=== PATIENT | female | born 1930 | race Caucasian/White ===

== ENCOUNTER 2016-09-26 08:57 | Inpatient (IN) | payer MEDICARE, OTHER ==
[~2016-09-26] VITALS: Ht 165.1 cm; Wt 63.6 kg
[2016-09-26] MEDS ORDERED: PANTOPRAZOLE 40 MG INJ IV STA ×2 (09:40→10:08)
[2016-09-26 09:51] LABS: ADD SCAN DIFF NO
[2016-09-26 09:53] LABS: ABNORMAL IP MESSAGE 1; BASOPHILS % 0.6 % (0.0-2.0); EOSINOPHILS # 0.1 10^3/ul (0.0-0.5); MEAN CORPUSCULAR VOLUME 103.9 fl (82.0-101.0)
[2016-09-26 09:56] LABS: ALBUMIN 2.6 g/dl (3.3-4.9); EOSINOPHILS % 1.1 % (0.0-7.0); HEMATOCRIT 21.3 % (37.0-47.0); INR 1.23; LYMPHOCYTES # 1.5 10^3/ul (0.8-2.9); MEAN CORPUSCULAR HEMOGLOBIN 33.7 pg (29.0-33.0); MEAN CORPUSCULAR HGB CONC 32.4 g/dl (32.0-37.0); MEAN PLATELET VOLUME 9.8 fl (7.4-10.4); MONOCYTE # 0.5 10^3/ul (0.3-0.9); NEUTROPHIL # 4.4 10^3/ul (1.6-7.5); NEUTROPHILS % 66.8 % (39.0-77.0); PARTIAL THROMBOPLASTIN TIME 26.8 Sec (25.0-35.0); PLATELET COUNT 183 10^3/UL (140-415); PROTIME 15.6 Sec (12.2-14.2); PT RATIO 1.2; RED BLOOD COUNT 2.05 10^6/ul (4.20-5.40); RED CELL DISTRIBUTION WIDTH 15.2 % (11.5-14.5); WHITE BLOOD COUNT 6.6 10^3/ul (4.8-10.8)
[2016-09-26 09:58] LABS: BILIRUBIN,INDIRECT 0.4 mg/dl (0-1.1); BILIRUBIN,TOTAL 0.4 mg/dl (0.2-1.3); CREATININE 1.12 mg/dl (0.44-1.00)
[2016-09-26 09:59] LABS: ALBUMIN/GLOBULIN RATIO 0.86; TOTAL PROTEIN 5.6 g/dl (6.1-8.1)
[2016-09-26 10:00] LABS: CALCIUM 7.7 mg/dl (8.4-10.2)
[2016-09-26 10:02] LABS: HEMOGLOBIN 6.9 g/dl (12.0-16.0)
[2016-09-26] MEDS ORDERED: PANTOPRAZOLE IV 80 MG in SOD CHLORIDE 0.9% 100 ML IV STA (10:08)
[2016-09-26 10:11] LABS: TROPONIN-I 0.047 ng/ml (0.00-0.12)
--- NOTE | 2016-09-26 10:16 | ERA ---
ER Documentation Chief Complaint Date/Time DATE: 09/26/16 TIME: 10:10 Chief Complaint bib ems rectal bleed HPI Patient is an 85-year-old female with history of hypertension, diabetes, and dementia brought in by family due to dark bloody stools at 8:00 this morning. Patient was in her normal state of health prior to this episode, has no history of prior GI bleed. Patient is on Plavix and aspirin for peripheral vascular disease. No anticoagulants. History is limited due to patient's underlying dementia. Patient is acting at baseline per family. No witnessed vomiting. ROS All systems reviewed and are negative except as per history of present illness. Medications Home Meds Reported Medications Clonazepam* (Clonazepam*) 0.5 Mg Tablet, 0.5 MG PO BID Y for ANXIETY, TAB 09/26/16 Alendronate Sodium* (Fosamax*) 70 Mg Tablet, 70 MG PO Q7D, #4 TAB 09/26/16 Glipizide* (Glipizide*) 5 Mg Tablet, 5 MG PO DAILY, TAB 09/26/16 Valsartan-Hydrochlorothiazide (Valsartan-HCTZ) 160-12.5 Mg Tablet, 1 TAB PO DAILY, #30 TAB 09/26/16 Clopidogrel Bisulfate* (Clopidogrel Bisulfate*) 75 Mg Tablet, 75 MG PO DAILY, # 30 TAB 09/26/16 Aspirin* (Aspirin* EC) 81 Mg Tablet.dr, 81 MG PO DAILY, TAB 09/26/16 Ferrous Sulfate* (Ferrous Sulfate*) 325 Mg Tabec, 325 MG PO DAILY, TAB 09/26/16 Rosuvastatin Calcium* (Crestor*) 10 Mg Tablet, 10 MG PO QHS, #30 TAB 09/26/16 Dexlansoprazole (Dexilant) 60 Mg Cap., 60 MG PO DAILY, #30 CAP 09/26/16 Calcium Carbonate ([id number]) 500 Mg Tablet, 500 MG PO BID, TAB 09/26/16 Acetaminophen (Mapap) 500 Mg Capsule, 500 MG PO Q4H Y for PAIN, CAP 09/26/16 Diclofenac Sodium* (Voltaren* Gel) 1% -100 Gm Gel, 2 GM TOP QID, #1 TUB 09/26/16 Azelastine Hcl* (Azelastine Hcl*) 0.05%-6 Ml Opht Drops, 1 DROP BOTH EYES BID, # 1 EA 09/26/16 Pyridoxine Hcl* (Vitamin B-6*) 50 Mg Capsule, 50 MG PO DAILY, CAP 09/26/16 Allergies Allergies: Coded Allergies: Penicillins (Verified Allergy, Intermediate, RASH, 09/26/16) PMhx/Soc Past medical history: Hypertension, diabetes, peripheral vascular disease Past surgical history: Hysterectomy, hip replacement, peripheral arterial stent Social history: No tobacco or alcohol History of Surgery: Yes (HIP REPLACEMENT 2013, VENOUS GRAFT LT LEG) Anesthesia Reaction: No Hx Neurological Disorder: Yes (ALZHEIMER'S DEMENTIA) Hx Respiratory Disorders: No Hx Cardiac Disorders: Yes (ARRHYTHMIA, HTN) Hx Psychiatric Problems: No Hx Miscellaneous Medical Probl: Yes (DM) Hx Alcohol Use: No Hx Substance Use: No Hx Tobacco Use: No Smoking Status: Never smoker FmHx Family History: No coronary disease, No diabetes Physical Exam Vitals Vital Signs Date Time Temp Pulse Resp B/P Pulse Ox O2 Delivery O2 Flow Rate FiO2 09/26/16 09:15 Nasal Cannula 2 09/26/16 09:02 97.2 90 20 144/78 100 Physical Exam Const: Ill-appearing, slightly lethargic, no acute distress Head: Atraumatic Eyes: Conjunctival pallor, no icterus ENT: Normal External Ears, Nose and Mouth. Neck: Full range of motion. No meningismus. Resp: Clear to auscultation bilaterally, mild tachypnea Cardio: Irregularly irregular rhythm, bradycardia, no murmurs Abd: Soft, non tender, non distended. Skin: No petechiae or rashes Rectal: Dark maroon stool on bed Ext: No cyanosis, or edema Neur: Awake and alert, slightly lethargic, not cooperative except with exam. No facial droop Psych: Normal Mood and Affect, at baseline per family Result Diagram: 09/26/1692409/26/16924 Results 24 hrs Laboratory Tests Test 09/26/16 09:25 09/26/16 10:40 Activated Partial Thromboplast Time 26.8Sec Alanine Aminotransferase (ALT/SGPT) 20IU/L Albumin 2.6g/dl Albumin/Globulin Ratio 0.86 Alkaline Phosphatase 76IU/L Anion Gap 14 Aspartate Amino Transf (AST/SGOT) 23IU/L Basophils # 0.010^3/ul Basophils % 0.6% Blood Urea Nitrogen 31mg/dl Calcium Level 7.7mg/dl Carbon Dioxide Level 25mmol/L Chloride Level 106mmol/L Creatinine 1.12mg/dl Direct Bilirubin 0.00mg/dl Eosinophils # 0.110^3/ul Eosinophils % 1.1% Globulin 3.00g/dl Glucose Level 178mg/dl Hematocrit 21.3% Hemoglobin 6.9g/dl INR International Normalized Ratio 1.23 Indirect Bilirubin 0.4mg/dl Lymphocytes # 1.510^3/ul Lymphocytes % 23.0% Mean Corpuscular Hemoglobin 33.7pg Mean Corpuscular Hemoglobin Concent 32.4g/dl Mean Corpuscular Volume 103.9fl Mean Platelet Volume 9.8fl Monocytes # 0.510^3/ul Monocytes % 8.0% Neutrophils # 4.410^3/ul Neutrophils % 66.8% Nucleated Red Blood Cells # 0.010^3/ul Nucleated Red Blood Cells % 0.0/100WBC Platelet Count 12485^3/UL Potassium Level 5.0mmol/L Prothrombin Time 15.6Sec Prothrombin Time Ratio 1.2 Red Blood Count 2.0510^6/ul Red Cell Distribution Width 15.2% Sodium Level 140mmol/L Total Bilirubin 0.4mg/dl Total Protein 5.6g/dl Troponin I 0.047ng/ml White Blood Count 6.610^3/ul Stool Occult Blood POSITIVE Current Medications Medications (Trade) Dose Ordered Sig/Willard Route PRN Reason Start Time Stop Time Status Last Admin Dose Admin Pantoprazole (Protonix Iv) 40 mg ONCE STAT IV 09/26/16 09:40 09/26/16 09:42 DC 09/26/16 10:00 Pantoprazole 40 mg 40 mg ONCE STAT IV 09/26/16 10:08 09/26/16 10:10 DC 09/26/16 10:28 Pantoprazole/ Sodium Chloride (Protonix Iv/NS) 100 ml @ 10 mls/hr ONCE STAT IV 09/26/16 10:08 09/26/16 20:07 09/26/16 10:32 Ondansetron HCl (Zofran Inj) 4 mg ER BRIDGE PRN IV NAUSEA AND/OR VOMITING 09/26/16 11:00 09/26/16 14:26 DC Acetaminophen (Tylenol Tab) 650 mg ER BRIDGE PRN PO MILD PAIN/FEVER 09/26/16 11:00 09/26/16 14:26 DC Lidocaine (Xylocaine (Viscous)) 15 ml ONCE ONCE PO 09/26/16 13:00 09/26/16 13:02 DC 09/26/16 14:27 Lidocaine (Xylocaine (Viscous)) 15 ml ONCE ONCE PO 09/26/16 13:00 09/26/16 13:01 DC Lorazepam 0.5 mg 0.5 mg ONCE ONCE IV 09/26/16 14:00 09/26/16 14:01 DC 09/26/16 14:27 Dextrose/Sodium Chloride (D5-1/2ns) 1,000 ml @ 100 mls/hr Q10H IV 09/26/16 14:17 IV Flush (NS 3 ml) 3 ml PER PROTOCOL IV 09/26/16 14:30 Ondansetron HCl (Zofran Inj) 4 mg Q6H PRN IV NAUSEA AND/OR VOMITING 09/26/16 14:30 Morphine Sulfate (morphine) 2 mg Q4H PRN IV SEVERE PAIN LEVEL 7-10 09/26/16 14:30 Pantoprazole (Protonix Iv) 40 mg BID@06,18 IV 09/26/16 18:00 Hydralazine HCl (Apresoline) 10 mg Q4H PRN IV SBP>170 09/26/16 14:30 Insulin Aspart (Novolog Insulin Pen) NOVOLOG *MILD* ALGORI... Q4 SC 09/26/16 17:00 Miscellaneous Information (* Miscellaneous Pharmacy Order) HYPOGLYCEMIA PROTOCOL w... ONCE ONCE XX 09/26/16 15:00 09/26/16 15:01 DC Miscellaneous Information (* Miscellaneous Pharmacy Order) Discontinue Glyburide, Glipizide,... ONCE ONCE XX 09/26/16 15:00 09/26/16 15:01 DC Miscellaneous Information (* Miscellaneous Pharmacy Order) Discontinue all previ... ONCE ONCE XX 09/26/16 15:00 09/26/16 15:01 DC Miscellaneous Information 1 ea NOTE XX 09/26/16 15:00 Glucose (Glutose) 15 gm Q15M PRN PO DECREASED GLUCOSE 09/26/16 15:00 Glucose (Glutose) 22.5 gm Q15M PRN PO DECREASED GLUCOSE 09/26/16 15:00 Dextrose (D50w Syringe) 25 ml Q15M PRN IV DECREASED GLUCOSE 09/26/16 15:00 Dextrose (D50w Syringe) 50 ml Q15M PRN IV DECREASED GLUCOSE 09/26/16 15:00 Glucagon (Glucagen) 1 mg Q15M PRN IM DECREASED GLUCOSE 09/26/16 15:00 Glucose (Glutose) 15 gm Q15M PRN BUCCAL DECREASED GLUCOSE 09/26/16 15:00 Procedures/MDM EKG: Time 950, rate 51, atrial fibrillation, bradycardia, left axis deviation, nonspecific ST-T wave changes. MDM: 85-year-old female on aspirin and Plavix presents with acute maroon stool this morning. 2 additional episodes during transport to ER and at ER. No hematemesis observed or reported. Patient started on Protonix drip with bolus, found to have hemoglobin of 6.9 with no hypotension. Patient given 2 units of packed red blood cells and discussed with admitting physician possibility of giving platelets due to antiplatelet agents, and he says he will discuss with consulting GI physician. Discussed with Dr. Tesfaye, school leader, who requests NG tube placement to help distinguish between upper versus lower GI bleed. Multiple attempts and Ativan for sedation required in order to place NG tube. Pending x-ray for confirmation, but no blood or coffee ground material observed on aspiration. Will maintain NG tube for bowel prep for planned colonoscopy. Patient remains hemodynamically stable. Critical Care Time: 34 minutes Treatments/Evaluations: Close monitoring and treatment of unstable vital signs, cardiorespiratory, and neurologic status, while maintaining tight balance of fluid, respiratory, and cardiac interventions. This time includes discussing the case with the patient and the patient's family. This time does not include all procedures stated elsewhere in this record. This time also includes reviewing old records, labs and radiological studies. This time includes examining and re-examining the patient. Additionally, this time also includes arranging care with admitting and consulting physicians. Departure Diagnosis: Primary Impression: Acute gastrointestinal hemorrhage Additional Impression: Anemia Condition: Nilson JAZMÍNGEORGIANA Sep 26, 2016 10:16
[2016-09-26] MEDS ORDERED: PYRI50CA PO (10:51)
[2016-09-26] MEDS ORDERED: AZEL6DRO2 BOTH EYES (10:52)
[2016-09-26] MEDS ORDERED: DICL100G37 TOP (10:52)
[2016-09-26] MEDS ORDERED: ACET500C3 PO (10:54)
[2016-09-26] MEDS ORDERED: DEXL60CA2 PO (10:56)
[2016-09-26] MEDS ORDERED: CALC500T91 PO (10:56)
[2016-09-26] MEDS ORDERED: ASPI-664 PO (10:57)
[2016-09-26] MEDS ORDERED: CRES10 PO (10:57)
[2016-09-26] MEDS ORDERED: FER325 PO (10:57)
[2016-09-26] MEDS ORDERED: VALS1TAB76 PO (10:58)
[2016-09-26] MEDS ORDERED: CLOP75TA4 PO (10:58)
[2016-09-26] MEDS ORDERED: GLIP5TAB13 PO (10:59)
[2016-09-26] MEDS ORDERED: ONDANSETRON 4 MG INJ IV PRN ×2 (11:00→14:30)
[2016-09-26] MEDS ORDERED: ACETAMINOPHEN 325 MG TAB PO PRN (11:00)
[2016-09-26] MEDS ORDERED: ALEN70TA30 PO (11:01)
[2016-09-26] MEDS ORDERED: CLON0.5T4 PO (11:02)
--- NOTE | 2016-09-26 11:46 | CONS ---
Date/Time of Note Date/Time of Note DATE: 09/26/16 TIME: 11:46 Consultation Date/Type/Reason Admit Date/Time Social History Smoking Status: Never smoker Exam/Review of Systems Vital Signs Vitals Vital Signs Date Time Temp Pulse Resp B/P Pulse Ox O2 Delivery O2 Flow Rate FiO2 09/26/16 09:15 Nasal Cannula 2 09/26/16 09:02 97.2 90 20 144/78 100 Results Result Diagram: 09/26/1692409/26/1625 Results 24 hrs Laboratory Tests Test 09/26/16 09:25 Activated Partial Thromboplast Time 26.8 Alanine Aminotransferase (ALT/SGPT) 20 Albumin 2.6 L Albumin/Globulin Ratio 0.86 Alkaline Phosphatase 76 Anion Gap 14 Aspartate Amino Transf (AST/SGOT) 23 Basophils # 0.0 Basophils % 0.6 Blood Urea Nitrogen 31 H Calcium Level 7.7 L Carbon Dioxide Level 25 Chloride Level 106 Creatinine 1.12 H Direct Bilirubin 0.00 Eosinophils # 0.1 Eosinophils % 1.1 Globulin 3.00 Glucose Level 178 Hematocrit 21.3 L Hemoglobin 6.9 *L INR International Normalized Ratio 1.23 Indirect Bilirubin 0.4 Lymphocytes # 1.5 Lymphocytes % 23.0 Mean Corpuscular Hemoglobin 33.7 H Mean Corpuscular Hemoglobin Concent 32.4 Mean Corpuscular Volume 103.9 H Mean Platelet Volume 9.8 Monocytes # 0.5 Monocytes % 8.0 Neutrophils # 4.4 Neutrophils % 66.8 Nucleated Red Blood Cells # 0.0 Nucleated Red Blood Cells % 0.0 Platelet Count 183 Potassium Level 5.0 Prothrombin Time 15.6 H Prothrombin Time Ratio 1.2 Red Blood Count 2.05 L Red Cell Distribution Width 15.2 H Sodium Level 140 Total Bilirubin 0.4 Total Protein 5.6 L Troponin I 0.047 White Blood Count 6.6 VICTORINA JO MD Sep 26, 2016 11:46
[2016-09-26] MEDS ORDERED: LIDOCAINE 2% VISC 15 ML CUP PO ONE ×2 (13:00)
[2016-09-26] MEDS ORDERED: LORAZEPAM 2 MG INJ IV ONE ×2 (14:00→20:00)
[2016-09-26] MEDS ORDERED: hydrALAzine 20 MG INJ IV PRN (14:30)
[2016-09-26] MEDS ORDERED: NACL 0.9% 3 ML SYG IV SCH (14:30)
[2016-09-26] MEDS ORDERED: GLUCOSE GEL 15 GRAM TUBE PO PRN ×2 (15:00)
[2016-09-26] MEDS ORDERED: DEXTROSE 50% 50 ML SYRINGE IV PRN ×2 (15:00)
[2016-09-26] MEDS ORDERED: GLUCAGON 1 MG INJ IM PRN (15:00)
[2016-09-26] MEDS ORDERED: GLUCOSE GEL 15 GRAM TUBE BUCCAL PRN (15:00)
[2016-09-26 16:00] VITALS: BP 144/82; PULSE 63; RESP 20
--- NOTE | 2016-09-26 16:01 | RADRPT ---
PROCEDURE: XR Chest. CLINICAL INDICATION: Nasogastric tube placement TECHNIQUE: Chest AP portable. COMPARISON: No comparison available FINDINGS: The nasogastric tube is in the stomach. The mediastinal structures are unremarkable. There is calcification of the thoracic aorta (consiste nt with atherosclerosis). There is mild cardiomegaly. There is pulmonary venous hypertension. The re are RLL and LLL patchy consolidations (edema/pneumonia). There is a right pleural effusion. The re are senescent changes of the axial skeleton. IMPRESSION: Mild cardiomegaly. Pulmonary venous hypertension. RLL and LLL patchy consolidations (edema/pneumonia). Right pleural effusion. RPTAT: HGDB .Roger Prieto MD, Date Time Electronically viewed and signed by .Roger Prieto MD, on 09/26/2016 16:00 .B/
[2016-09-26 16:42] VITALS: PULSE 57
[2016-09-26] MEDS: INSULIN ASPART [NOVOLOG] 3 ML PEN SC SCH ×2 (17:00→21:00)
[2016-09-26 17:30] VITALS: Ht 165.1 cm; Wt 63.6 kg
[2016-09-26] MEDS ORDERED: FUROSEMIDE 20 MG INJ IV ONE (17:30)
--- NOTE | 2016-09-26 17:38 | HP ---
DATE OF ADMISSION: 09/26/2016 CHIEF COMPLAINT: Gastrointestinal bleed. HISTORY OF PRESENT ILLNESS: The patient is an 85-year-old female with history of severe dementia, h ypertension and diabetes. The patient was brought in by her daughter for dark stools. I saw her th is morning. The patient then had bright red blood per rectum. The patient has no prior history of GI bleed. She did not endorse any abdominal pain. She is on Plavix and aspirin for her peripheral vascular disease. She is not on any anticoagulants. History is provided by the patient's daughter as patient is severely demented. The patient's mentation is at baseline per the daughter. The jenny ent had no witnessed vomiting, no witnessed upper GI bleed. NG tube was attempted to be placed in t ER, but patient became agitated and refused it. PAST MEDICAL HISTORY: As per HPI. PAST SURGICAL HISTORY: Hip replacements, venous graft in left leg. HOME MEDICATIONS: 1. Tylenol. 2. Fosamax. 3. Aspirin. 4. Calcium. 5. Clonazepam. 6. Plavix. 7. Ferrous sulfate. 8. Glipizide. 9. Vitamin B6. 8. Crestor. 9. Dexilant. 10. Losartan. 11. Hydrochlorothiazide. ALLERGIES: PENICILLIN. FAMILY HISTORY: Noncontributory. SOCIAL HISTORY: No reports of alcohol, tobacco, or drug abuse. REVIEW OF SYSTEMS: A 12-point review of systems cannot be obtained secondary to patient's poor ment ation, which is her baseline. PHYSICAL EXAMINATION: VITAL SIGNS: Temperature is 97.2, pulse 90, respiration is 20, blood pressure 144/78, saturation 10 0% on 2 liters. GENERAL: No acute distress, nonverbal. HEENT: Normocephalic, atraumatic. LUNGS: Clear to auscultation. CARDIOVASCULAR: Regular rate and rhythm. ABDOMEN: Nondistended, nontender, soft. EXTREMITIES: No clubbing, cyanosis, or edema. LABORATORIES: White count 6.6, hemoglobin 6.9, platelets are 183. Chemistry within normal limits e xcept for creatinine 1.12, BUN is 31. Troponin is 5.6, albumin is 2.6. INR is 1.23. Stool occult is positive. ASSESSMENT AND PLAN: 1. Severe anemia secondary to a gastrointestinal bleed. The patient has already been evaluated by Dr. Tesfaye of GI. The patient will likely have an EGD and colonoscopy tomorrow. An NG-tube placeme nt was attempted in the ER, but the patient became agitated and refused. Hence, it is unclear exact ly whether the patient is having an upper GI bleed versus lower GI bleed. The patient will be on Pr otonix. Will monitor vitals and H and H, follow with GI recommendations. We will also check a B12 and folate as the patient has macrocytosis. 2. History of dementia. The patient's mentation is at baseline according to the daughter. 3. History of peripheral vascular disease. Will hold home aspirin and Plavix secondary to gastroin testinal bleed. 4. History of hypertension. Hold BP medications secondary to gastrointestinal bleed and possible e nsuing hypotension. 5. Mbk-jnjrsxj-eicatdkqr diabetes. We will put the patient on a NovoLog sliding scale. 6. Dyslipidemia. Hold Crestor at this time. 7. Prophylaxis: SCDs. Dictated By: BALA ARGUELLES MD BS/GRIS Conf#: [id number] DID#: [id number]
[2016-09-26 17:54] VITALS: BP 166/71; RESP 18
[2016-09-26] MEDS ORDERED: SOD CHLORIDE 0.9% 250 ML IV* ONE (17:56)
[2016-09-26] MEDS: PANTOPRAZOLE 40 MG INJ IV SCH (18:00)
[2016-09-26] MEDS ORDERED: PEG/ELECTROLYTES 4L BTL NGT ONE (19:30)
[2016-09-26] MEDS: morphine 2 MG INJ IV PRN ×2 (19:43→21:35)
[2016-09-26 20:18] VITALS: PULSE 57
[2016-09-26 20:22] VITALS: BP 154/78; RESP 20
[2016-09-26 20:41] LABS: HEMOGLOBIN 7.6 g/dl (12.0-16.0)
[2016-09-26] MEDS: DEXTROSE 5%-0.45% NACL 1,000 ML IV SCH (23:36)
[2016-09-26 23:42] VITALS: BP 126/38; RESP 18
[2016-09-27] VITALS (17 sets, daily range): BP systolic 123–163; BP diastolic 57–100; PULSE 30–97; RESP 14–21
[2016-09-27 01:09] LABS: HEMATOCRIT 23.3 % (37.0-47.0); HEMOGLOBIN 7.7 g/dl (12.0-16.0)
[2016-09-27] MEDS: INSULIN ASPART [NOVOLOG] 3 ML PEN SC SCH ×6 (01:41→21:06)
[2016-09-27] MEDS: PANTOPRAZOLE 40 MG INJ IV SCH ×2 (05:22→21:04)
[2016-09-27] MEDS ORDERED: ATROPINE 1 MG INJ IV ONE (06:30)
[2016-09-27 07:25] LABS: ADD SCAN DIFF NO
[2016-09-27 07:44] LABS: ALBUMIN 2.5 g/dl (3.3-4.9)
[2016-09-27 07:45] LABS: POTASSIUM 4.9 mmol/L (3.5-5.1)
[2016-09-27 07:47] LABS: ALBUMIN/GLOBULIN RATIO 0.89; BILIRUBIN,INDIRECT 0.4 mg/dl (0-1.1); BILIRUBIN,TOTAL 0.4 mg/dl (0.2-1.3); CREATININE 1.22 mg/dl (0.44-1.00); TOTAL PROTEIN 5.3 g/dl (6.1-8.1)
[2016-09-27 07:48] LABS: MAGNESIUM 2.3 mg/dl (1.7-2.5); PHOSPHORUS 3.6 mg/dl (2.5-4.9)
[2016-09-27 08:15] LABS: BASOPHIL # 0.1 10^3/ul (0.0-0.1); BASOPHILS % 0.7 % (0.0-2.0); EOSINOPHILS # 0.1 10^3/ul (0.0-0.5); EOSINOPHILS % 1.1 % (0.0-7.0); HEMATOCRIT 22.3 % (37.0-47.0); HEMOGLOBIN 7.3 g/dl (12.0-16.0); LYMPHOCYTES # 1.5 10^3/ul (0.8-2.9); LYMPHOCYTES % 19.5 % (15.0-51.0); MEAN CORPUSCULAR HEMOGLOBIN 32.2 pg (29.0-33.0); MEAN CORPUSCULAR HGB CONC 32.7 g/dl (32.0-37.0); MEAN CORPUSCULAR VOLUME 98.2 fl (82.0-101.0); MEAN PLATELET VOLUME 10.3 fl (7.4-10.4); MONOCYTE # 0.7 10^3/ul (0.3-0.9); MONOCYTES % 9.6 % (0.0-11.0); NEUTROPHIL # 5.1 10^3/ul (1.6-7.5); NEUTROPHILS % 68.6 % (39.0-77.0); PLATELET COUNT 136 10^3/UL (140-415); RED BLOOD COUNT 2.27 10^6/ul (4.20-5.40); RED CELL DISTRIBUTION WIDTH 19.1 % (11.5-14.5); WHITE BLOOD COUNT 7.5 10^3/ul (4.8-10.8)
[2016-09-27] MEDS: DEXTROSE 5%-0.45% NACL 1,000 ML IV SCH ×3 (10:17→21:03)
[2016-09-27] MEDS ORDERED: LORAZEPAM 2 MG INJ IV SCH (11:45)
--- NOTE | 2016-09-27 14:54 | RADRPT ---
PROCEDURE: XR Abdomen. CLINICAL INDICATION: NG tube placement assessment. TECHNIQUE: AP abdomen x-ray. COMPARISON: Chest x-ray 09/26/2016. FINDINGS: An NG tube is positioned its tip distal to the GE junction. There is a subpulmonic right pleural ef fusion. There are degenerative osteophytes in the thoracic and lumbar spine. There is an old inter donte fixated intertrochanteric fracture of the proximal right femur. There are degenerative change s in both hips. There is a reflex ileus. IMPRESSION: 1. The nasogastric tube is well positioned distal to the GE junction with its distal tip about 8 cm away from the GE junction. 2. Old internally fixated intertrochanteric fracture of the proximal right femur. 3. Osteoarthritis of the lower thoracic, lumbar spine and both hips. RPTAT:AAJJ Physician Clem Date Time Electronically viewed and signed by Physician Clem on 09/27/2016 14:54 SAMIR/
[2016-09-27] MEDS ORDERED: LIDOCAINE 1% (MDV) 20 ML INJ SC ONE (16:00)
[2016-09-27] MEDS ORDERED: METOCLOPRAMIDE 10 MG INJ IV PRN (18:00)
[2016-09-27 19:00] LABS: HEMATOCRIT 28.4 % (37.0-47.0); HEMOGLOBIN 9.6 g/dl (12.0-16.0)
--- NOTE | 2016-09-27 22:09 | PN ---
DATE: 09/27/2016 SUBJECTIVE: The patient is stable at this point. She is still somewhat confused. Has poor IV acce ss. Currently receiving second unit of packed red blood cells. PHYSICAL EXAMINATION: VITAL SIGNS: Temperature 98, pulse is 60, blood pressure 123/79, O2 saturation 96% on 2 L nasal can nula. NECK: Supple. No JVD or lymphadenopathy. CARDIAC: S1, S2. No added sounds or murmurs. CHEST: Diminished air entry bilaterally. ABDOMEN: Soft, nontender. No guarding, no rebound. EXTREMITIES: No cyanosis, clubbing. 1+ edema. NEUROLOGIC: Generalized weakness. LABORATORY DATA: White count 7.5, hemoglobin 7.3. BUN 43, creatinine 1.2. INR 1.23. IMAGING: Chest x-ray on admission had shown mild vascular congestion, right pleural effusion. IMPRESSION AND PLAN: 1. Significant anemia suggestive of gastrointestinal bleed. 2. Mild congestive cardiac failure. 3. Possible dementia. 4. Incomplete data. PLAN: 1. Continue transfusion of packed red blood cells. Keep hemoglobin greater than 8. 2. GI evaluation and possible endoscopy and/or colonoscopy. 3. Preop clearance by cardiology for possible endoscopy and colonoscopy given patient's advanced ag e and relative bradycardia. Dictated By: CLAUDETTE LAL MD SV/NTS Conf#: [id number] DID#: [id number] CC: BALA ARGUELLES MD;*EndCC*
[2016-09-28] VITALS (18 sets, daily range): BP systolic 102–198; BP diastolic 38–105; PULSE 40–73; RESP 10–21
[2016-09-28] MEDS: INSULIN ASPART [NOVOLOG] 3 ML PEN SC SCH ×6 (01:00→21:27)
[2016-09-28 01:02] LABS: HEMATOCRIT 26.1 % (37.0-47.0); HEMOGLOBIN 8.7 g/dl (12.0-16.0)
[2016-09-28] MEDS: DEXTROSE 5%-0.45% NACL 1,000 ML IV SCH ×3 (01:47→17:57)
[2016-09-28] MEDS: PANTOPRAZOLE 40 MG INJ IV SCH ×2 (04:49→17:59)
--- NOTE | 2016-09-28 07:58 | CONS ---
DATE OF ADMISSION: 09/26/2016 DATE OF CONSULTATION: 09/27/2016 CARDIOLOGY CONSULTATION REFERRING PHYSICIAN: Dr. Leiva, Dr. Pappas. REASON FOR CONSULTATION: Atrial fibrillation, bradycardia, cardiovascular preop evaluation. CHIEF COMPLAINT: GI bleed. HISTORY OF PRESENT ILLNESS: Thank you for this referral. History obtained from the patient's daugh ter, most recent from review of the chart, attending physician and staff. The patient . 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 The patient was noted to have dark stool for a few days. She was noted t o be severely anemic. The patient is on aspirin and probably on Plavix too for history of atrial fi brillation, apparently. No previous history of bleeding. The patient has apparently been bradycardi c before but has been recommended by her primary doctor pacemaker. Per the patient's daughter, has a refused to have it done. In the monitor, she was noted to be atrial fibrillation with slow v entricular response. Heart rate has been as low as 30. Blood pressure has remained stable. PAST MEDICAL HISTORY: History of hypertension, diabetes, dementia, history of CVA in the past, hist ory of atrial fibrillation. SURGICAL HISTORY: History of hip replacement, venous graft in the leg. MEDICATIONS: As per medical reconciliation, personally reviewed. ALLERGIES: PENICILLIN. FAMILY HISTORY: No reported coronary artery disease. SOCIAL HISTORY: Does not smoke or drink. REVIEW OF SYSTEMS: As above-mentioned, patient is mostly bed bound. The family denied all other exc ept for above-mentioned. PHYSICAL EXAMINATION: VITAL SIGNS: Temperature 98.4, heart rate of 50, blood pressure 123/79, respiration rate of 16, sat urating 98%. HEENT: Normocephalic, atraumatic. Pupils are equal. Status post NG tube in place. CARDIOVASCULAR: Irregularly irregular, systolic murmur. PULMONARY: No wheezes heard anteriorly. GASTROINTESTINAL: Soft, nontender. EXTREMITIES: Trivial edema. NEUROLOGIC: Awake, oriented to person only. PSYCHIATRIC: Appears to be calm at this point. LABORATORY: OB stool is positive. Sodium 143, potassium 4.9, BUN of 43, creatinine 0.42, glucose 1 27. Albumin is 2.5. WBC of 7.5, hemoglobin on admission was 6.9. Most recent one after transfusio n is 9.6, platelet 136. INR 1.23. Chest x-ray showed pulmonary venous hypertension, mild cardiomeg ghada, right lower lobe and left lower lobe patchy consolidation, edema or pneumonia, right pleural ef fusion. EKG showed atrial fibrillation with slow ventricular response. There was no conduction del ay, nonspecific ST abnormalities. Echocardiogram is still pending. ASSESSMENT AND PLAN: 1. Cardiovascular preop evaluation. 2. Atrial fibrillation with slow ventricular response. 3. Hypertension. 4. Diabetes. 5. History of cerebrovascular accident. 6. History of severe dementia. 7. Severe anemia. 8. Gastrointestinal bleed. RECOMMENDATIONS: The patient has been transfused. She is not on any medication to cause bradycardi a as far as we can say, but she is severely bradycardic. Pacemaker was recommended to the family; tiffany edwards, daughter said that she does not want to have to have any procedure done including the pacema ker. We will avoid any AV alva blocking agent. I will check the thyroid function test. Blood pres sure currently has remained stable. No further cardiac workup would be indicated prior to the surge ry except an echocardiogram which has been ordered already. However, the patient is at moderate ris k of cardiovascular event, especially bradycardia. This was explained to the daughter, but again sh pepe does not want her to have any pacemaker placed at the moment. All anticoagulation is on hold. Wi ll continue to monitor on telemetry for the time being. Dictated By: MJ TATE MD AV/GRIS Conf#: [id number] DID#: [id number] CC: BALA PAPPAS MD; CLAUDETTE LEIVA MD;*End*
[2016-09-28] MEDS ORDERED: INFLUENZA VIRUS VACCINE 0.5 ML (DISPENSING) IM* ONE (09:00)
--- NOTE | 2016-09-28 09:06 | RADRPT ---
PROCEDURE: XR Chest 1 View. CLINICAL INDICATION: Shortness of breath TECHNIQUE: AP view of the chest was obtained. COMPARISON: September 26, 2016 FINDINGS: Heart borders are obscured by the opacities. Calcified atherosclerosis is noted in the aorta. Nasog astric tube has its distal end in the expected location of the stomach. Proximal side hole is noted at the level of the gastroesophageal junction. Patchy infiltrates throughout the right lung combin ed with moderate to large pleural effusion are similar to prior exam, given differences in technique . The left lung is hyperexpanded. Interstitial prominence throughout the left lung is unchanged. Scattered atelectasis is noted throughout the left lung. The osseous structures are osteopenic, but appear grossly intact. Degenerative changes are identified in the shoulders. IMPRESSION: Calcified atherosclerosis in the aorta. Stable patchy infiltrates throughout the right lung combined with moderate to large pleural effusion . Stable hyperexpansion of the left lung with diffuse interstitial prominence in the left lung. Scattered subsegmental atelectasis throughout the left lung. Nasogastric tube with its proximal side hole at the level of the gastroesophageal junction. Advance ment by approximately 6 cm is recommended. RPTAT: AA .Eddie Max MD, Date Time Electronically viewed and signed by .Eddie Max MD, on 09/28/2016 09:05 .P/
[2016-09-28] MEDS ORDERED: ATROPINE 1 MG/10 ML SYRINGE ONE (10:58)
[2016-09-28] MEDS ORDERED: ATROPINE 0.4 MG INJ IV ONE (11:00)
[2016-09-28] MEDS: ATROPINE 1 MG/10 ML SYRINGE IV PRN ×2 (11:04→11:05)
[2016-09-28 11:19] LABS: HEMOGLOBIN 8.8 g/dl (12.0-16.0)
[2016-09-28] MEDS ORDERED: POLYMYXIN/BACITRACIN 1L IRRIG IRR SCH (12:30)
[2016-09-28 13:41] LABS: POTASSIUM 3.8 mmol/L (3.5-5.1)
[2016-09-28 13:44] LABS: CREATININE 1.08 mg/dl (0.44-1.00)
[2016-09-28 13:45] LABS: CALCIUM 8.1 mg/dl (8.4-10.2); MAGNESIUM 2.1 mg/dl (1.7-2.5); PHOSPHORUS 3.3 mg/dl (2.5-4.9)
[2016-09-28] MEDS ORDERED: PROPOFOL 100 ML ONE (13:47)
[2016-09-28] MEDS ORDERED: LIDOCAINE 2% (SDV) 5 ML INJ ONE (13:47)
[2016-09-28] MEDS ORDERED: FENTAnyl 50 MCG/ML VIAL ONE (13:48)
[2016-09-28] MEDS ORDERED: SUCCINYLCHOLINE CHLORIDE 100 MG/5 ML SYG IV ONE (13:48)
[2016-09-28] MEDS ORDERED: EPHEDrine SULFATE 50 MG/5 ML SYG ONE (13:48)
[2016-09-28] MEDS ORDERED: ONDANSETRON 4 MG INJ ONE (13:49)
[2016-09-28] MEDS ORDERED: PHENYLephrine (100 MCG/ML) 5ML SYG ONE (13:49)
[2016-09-28 13:50] LABS: CHOL/HDL RATIO 3.7 RATIO
[2016-09-28 14:22] LABS: THYROID STIMULATING HORMONE 4.1 MIU/L (0.465-4.680)
--- NOTE | 2016-09-28 15:04 | RADRPT ---
Echocardiogram Report Patient Name: ADALID SILVA Gender: Female Date: 1930 Study Date: 28-Sep-2016 [id number] Architect: Malik Neff RDCS Location: 528 Ref. Physician: MJ BRYANT Quality: Good Procedures: Transthoracic echocardiogram with complete 2D, M-Mode, and doppler examination. Indications: Atrial Fibrillation. 2D/M Mode Doppler Measurement Value Normal Ranges Measurement Value Normal Ranges LVIDd 2D 4.3 3.5 - 5.6 cm AV Peak Tello 1.8 m/sec LVIDs 2D 2.6 2.1 - 4.1 cm AV Peak PG 12.9 mmHg LVPWd 2D 0.9 0.6 - 1.1 cm AI Peak PG 49.4 mmHg IVSd 2D 1.0 0.6 - 1.1 cm AI Peak Tello 3.5 m/sec AoR Diam 2D 2.6 2.0 - 3.7 cm AI PHT 466.8 msec EDV 2D 84.5 cm3 LVOT Peak Tello 0.9 m/sec ESV 2D 16.9 cm3 LVOT Peak PG 3.5 mmHg LA Dimen 2D 4.2 2.3 - 4.0 cm TR Peak Tello 4.8 m/sec TR Peak PG 92.0 mmHg RVSP 95.0 mmHg Findings Left Ventricle: Normal left ventricular systolic function. Normal left ventricular cavity size. Normal left ventricular wall thickness. Ejection fraction is visually estimated at 60 %. Right Ventricle: Normal right ventricular size. Normal right ventricular systolic function. Left Atrium: There is mild enlargement of left atrium. Right Atrium: There is mild enlargement of right atrium. Mitral Valve: Mitral valve leaflets appear moderately thickened. Moderate mitral annular calcification. Severe mitral valve regurgitation. Aortic Valve: Aortic cusps appear mildly calcified. Mild aortic valve regurgitation. Tricuspid Valve: Estimated peak PA systolic pressure 95 mmHg. There is moderate tricuspid regurgitation. Pulmonic Valve: There is trace to mild pulmonic regurgitation. Pericardium: Normal pericardium with no significant pericardial effusion. Left pleural effusion seen. Aorta: Normal aortic root. IVC: Normal size and normal respiratory collapse consistent with normal right atrial pressure. Conclusions 1.Normal left ventricular systolic function. Normal left ventricular cavity size. Normal left ventricular wall thickness. Ejection fraction is visually estimated at 60 %. 2.There is mild enlargement of left atrium. 3.There is mild enlargement of right atrium. 4.Mitral valve leaflets appear moderately thickened. Moderate mitral annular calcification. Severe mitral valve regurgitation. 5.Aortic cusps appear mildly calcified. Mild aortic valve regurgitation. 6.Estimated peak PA systolic pressure 95 mmHg. There is moderate tricuspid regurgitation. 7.Normal size and normal respiratory collapse consistent with normal right atrial pressure. Electronically Signed By: Mj Bryant 28-Sep-2016 15:03:35 -0700 Patient Name: ADALID SILVA Study Date: 28-Sep-2016 [id number]
[2016-09-28] MEDS ORDERED: VANCOMYCIN 1 GM (PMX) 250 ML IVPB ONE (15:30)
[2016-09-28] MEDS ORDERED: SOD CHLORIDE 0.9% 500 ML IV ONE (15:30)
[2016-09-28] MEDS ORDERED: LIDOCAINE 1%/EPI 30 ML INJ ONE (15:49)
[2016-09-28] MEDS ORDERED: IODIXANOL LOCM 50 ML BTL ONE (15:50)
--- NOTE | 2016-09-28 15:53 | PN ---
Date/Time of Note Date/Time of Note DATE: 09/28/16 TIME: 15:37 Assessment/Plan VTE Prophylaxis VTE Prophylaxis Intervention: SCD's Lines/Catheters IV C[facility]ter Type (from [facility]): Peripheral IV Urinary Cath still in place: No Assessment/Plan Assessment/Plan 1. Severe anemia secondary to a gastrointestinal bleed. 2. Atrial fibrillation with slow ventricular response. 3. Diastolic CHF with Moderate to large R sided pleural effusion with preserved EF 4. Severe Mitral valve regurgitation 5. Chronic dementia with patient being ambulant and communicative at baseline. 6. Chronic peripheral vascular disease. 7. Hypertension 8. Gtf-ddwvscm-rdygbyzwc diabetes. We will put the patient on a NovoLog sliding scale. 9. Dyslipidemia 10. DNR per daughter 11. ARF r/o CKD PLAN: * Strongly recommend Pacemaker placement prior to endoscopy * Commence gentle diuresis * Continue to hold anticoagulation for now * Endoscopy planned for 5pm today * No opiods or ativan d/t severe lethargy * f/u pulm recs regarding pleural effusion * Continue supportive care * Spokw with daughter in detail PROPHYLAXIS: PPI / Scds Disclaimer: Inadvertent spelling and grammatical errors are likely due to EHR/ dictation software use and do not reflect on the quality of delivered patient care. Also, please note that the electronic time recorded on this node does not necessarily reflect the actual time of the visit. Subjective 24 Hr Interval Summary Free Text/Dictation * very lethargic and sleepy * no ativan since yesterday afternoon per report * Discussed code status with daughter , patient is DNR Exam/Review of Systems Vital Signs Vitals Vital Signs Date Time Temp Pulse Resp B/P Pulse Ox O2 Delivery O2 Flow Rate FiO2 09/28/16 12:00 60 09/28/16 09:59 97.9 18 157/64 100 09/28/16 08:50 2.0 09/28/16 08:45 Nasal Cannula Intake and Output 09/27/16 09/27/16 09/28/16 15:00 23:00 07:00 Intake Total 0 ml 1500 ml Output Total 9 ml Balance 0 ml 1491 ml Exam Constitutional: other (elderly, mildly pursed breathing, but will arouse to stimulation and answer questions), No alert Head: normocephalic Eyes: PERRL Respiratory: diminished breath sounds, other (? Murmur) Cardiovascular: irregular rhythm, No regular rate and rhythm (bradycardic to the 40s) Extremities: edema Neurological: lethargic Results Result Diagram: 09/28/16 1004 09/28/16 1004 Results 24 hrs Laboratory Tests Test 09/27/16 17:29 09/27/16 18:40 09/27/16 21:00 09/28/16 00:55 Bedside Glucose 159 186 Hematocrit 28.4 #L 26.1 L Hemoglobin 9.6 #L 8.7 L Test 09/28/16 01:46 09/28/16 04:48 09/28/16 08:20 09/28/16 10:04 Bedside Glucose 139 171 196 Anion Gap 14 Blood Urea Nitrogen 31 #H Calcium Level 8.1 L Carbon Dioxide Level 22 Chloride Level 108 Cholesterol Level 138 Cholesterol/HDL Ratio 3.7 Creatinine 1.08 H Digoxin Level < 0.4 L Free Thyroxine 1.61 Glucose Level 187 HDL Cholesterol 37 Hematocrit 26.0 L Hemoglobin 8.8 L LDL Cholesterol, Calculated 81 Magnesium Level 2.1 Phosphorus Level 3.3 Potassium Level 3.8 Sodium Level 140 Thyroid Stimulating Hormone (TSH) 4.100 Triglycerides Level 98 Test 09/28/16 13:36 Bedside Glucose 198 Medications Medications Current Medications Dextrose/Sodium Chloride (D5-1/2ns) 1,000 ml @ 100 mls/hr Q10H IV Last administered on 09/28/16 12:25; Admin Dose 100 MLS/HR; Start 09/26/16 at 14:17 Ondansetron HCl (Zofran Inj) 4 mg Q6H PRN IV NAUSEA AND/OR VOMITING; Start at 14:30 Morphine Sulfate (morphine) 2 mg Q4H PRN IV SEVERE PAIN LEVEL 7-10 Last administered on 09/26/16 19:43; Admin Dose 2 MG; Start 09/26/16 at 14:30 Pantoprazole (Protonix Iv) 40 mg BID@06,18 IV Last administered on 09/28/16 04 :49; Admin Dose 40 MG; Start 09/26/16 at 18:00 Hydralazine HCl (Apresoline) 10 mg Q4H PRN IV SBP>170 Last administered on 09/28 02:42; Admin Dose 10 MG; Start 09/26/16 at 14:30 Insulin Aspart (Novolog Insulin Pen) NOVOLOG *MILD* ALGORI... Q4 SC Last administered on 09/28/16t 13:50; Admin Dose 2 UNIT; Start 09/26/16 at 17:00 Miscellaneous Information 1 ea NOTE XX ; Start 09/26/16 at 15:00 Glucose (Glutose) 15 gm Q15M PRN PO DECREASED GLUCOSE; Start 09/26/16 at 15:00 Glucose (Glutose) 22.5 gm Q15M PRN PO DECREASED GLUCOSE; Start 09/26/16 at 15: 00 Dextrose (D50w Syringe) 25 ml Q15M PRN IV DECREASED GLUCOSE; Start 09/26/16 at 15:00 Dextrose (D50w Syringe) 50 ml Q15M PRN IV DECREASED GLUCOSE; Start 09/26/16 at 15:00 Glucagon (Glucagen) 1 mg Q15M PRN IM DECREASED GLUCOSE; Start 09/26/16 at 15:00 Glucose (Glutose) 15 gm Q15M PRN BUCCAL DECREASED GLUCOSE; Start 09/26/16 at 15 :00 Metoclopramide HCl (Reglan) 5 mg Q6H PRN IV NAUSEA; Start 09/27/16 at 18:00 Bacitracin/ Polymyxin B Sulfate 1000 ml 1,000 ml CATH-LAB IRR ; Start 09/28/16 at 12:30; Stop 09/28/16 at 19:00 Vancomycin HCl 250 ml @ 125 mls/hr ONCE ONCE IVPB ; Start 09/28/16 at 15:30; Stop 09/28/16 at 17:29 Sodium Chloride (NS) 500 ml @ 500 mls/hr Q1H ONCE IV ; Start 09/28/16 at 15:30 ; Stop 09/28/16 at 16:29 Procedures Procedures PROCEDURE: XR Chest 1 View. CLINICAL INDICATION: Shortness of breath TECHNIQUE: AP view of the chest was obtained. COMPARISON: September 26, 2016 FINDINGS: Heart borders are obscured by the opacities. Calcified atherosclerosis is noted in the aorta. Nasogastric tube has its distal end in the expected location of the stomach. Proximal side hole is noted at the level of the gastroesophageal junction. Patchy infiltrates throughout the right lung combined with moderate to large pleural effusion are similar to prior exam, given differences in technique. The left lung is hyperexpanded. Interstitial prominence throughout the left lung is unchanged. Scattered atelectasis is noted throughout the left lung. The osseous structures are osteopenic, but appear grossly intact. Degenerative changes are identified in the shoulders. IMPRESSION: Calcified atherosclerosis in the aorta. Stable patchy infiltrates throughout the right lung combined with moderate to large pleural effusion. Stable hyperexpansion of the left lung with diffuse interstitial prominence in the left lung. Scattered subsegmental atelectasis throughout the left lung. Nasogastric tube with its proximal side hole at the level of the gastroesophageal junction. Advancement by approximately 6 cm is recommended. RPTAT: AA .Eddie Max MD, Date Time Electronically viewed and signed by .Eddie Max MD, MD on 09/28/2016 09:05 .P/ CC: CLAUDETTE LAL MD, [facility] 1. Normal left ventricular systolic function. Normal left ventricular cavity size. Normal left ventricular wall thickness. Ejection fraction is visually estimated at 60 %. 2. There is mild enlargement of left atrium. 3. There is mild enlargement of right atrium. 4. Mitral valve leaflets appear moderately thickened. Moderate mitral annular calcification. Severe mitral valve regurgitation. 5. Aortic cusps appear mildly calcified. Mild aortic valve regurgitation. 6. Estimated peak PA systolic pressure 95 mmHg. There is moderate tricuspid regurgitation. 7. Normal size and normal respiratory collapse consistent with normal right atrial pressure. Electronically Signed By: Blair Bryant 28-Sep-2016 15:03:35 -0700 Patient Name: DASIASOPHIAADALID BOLATITO M. Sep 28, 2016 15:48
[2016-09-28] MEDS ORDERED: GLYCOPYRROLATE 0.4 MG INJ ONE (15:59)
--- NOTE | 2016-09-28 16:02 | PN ---
DATE: 09/28/2016 ADDENDUM: The patient after my initial visit bradycardic to as low as 25. I was summoned emergently by lester gonsalez. I rushed to the bedside and ordered that the patient be given intravenous atropine and external pacers placed on, and patient to be transferred to the intensive care unit. I did strongly recomme nd to the patient's daughter that she would benefit from pacemaker placement and the daughter has co nsented to the procedure. I have spoken with Dr. Bryant, crown attacher, who will perform the procedu re on the patient today. Dictated By: YAIR MURILLO MD BA/NTS Conf#: [id number] DID#: [id number]
[2016-09-28] MEDS ORDERED: SOD CHLORIDE 0.9% 500 ML ONE (17:44)
[2016-09-28] MEDS ORDERED: IODIXANOL LOCM 100 ML BTL ONE (17:44)
[2016-09-28] MEDS: FUROSEMIDE 40 MG INJ IV SCH (17:59)
[2016-09-28] MEDS ORDERED: ACETAMINOPHEN 325 MG TAB PO PRN (18:00)
[2016-09-28] MEDS ORDERED: VANCOMYCIN IV PER PHARMACY XX SCH (18:00)
[2016-09-28 18:21] LABS: HEMATOCRIT 25.4 % (37.0-47.0); HEMOGLOBIN 8.7 g/dl (12.0-16.0)
--- NOTE | 2016-09-28 18:27 | SP ---
DATE OF PROCEDURE: 09/28/2016 PROCEDURE PERFORMED: 1. Left subclavian venogram with radiological interpretation. 2. Implantation of single-chamber permanent pacemaker. SURGEON: Mj Bryant MD CLINICAL INDICATIONS: An 85-year-old female with severe sick sinus syndrome, atrial fibrillation wi th slow ventricular response. The patient's heart rate has gone as low as 25. The patient has sahara re dementia. ____ and pacemaker were discussed with the patient's family last night and heart rate was in the 30s. Family at that time said they did not want any procedure done. However, today jenny ent's heart rate has gone as low as 25 required to get an atropine to increase the heart rate. Afte r that, the patient's family has requested a pacemaker to be placed. DESCRIPTION OF PROCEDURE: Written informed consent was obtained. The risks and benefits were discu ssed with the patient's daughter in detail. Risks included but are not limited to infection, vascul ar complication, pneumothorax, hemothorax, perforation, anesthesia related complications, bleeding, infection, etc., discussed with her in detail. The patient was brought into the radiographer cardiac catheterization, placed in the supine position. The left chest wall was prepped and draped in a sterile fashion. Left subcla vian venogram was performed, which showed patent subclavian vein and cephalic vein. Left AC groove area was anesthetized with 1% lidocaine with epinephrine. A 3 cm incision was made in the left AC g roove area. Blunt dissection was carried out. Cephalic vein was identified and cannulated. Wire w as advanced through it. An 8-Albanian sheath was placed into the left subclavian vein into the cephal ic vein. Then, a right ventricular lead was advanced under ____ in the right high septum. Once in good position, it was screwed into place. Threshold was checked with excellent threshold and ____ p attern. No diaphragmatic stimulation at 10 volts. Sheath was peeled away. Lead was tied down with 0 Ethibond. Pocket was irrigated with antibiotic solution. The lead was placed in the pocket, ___ _ placed into the pocket and tied down. The wound was closed with 1 layer of 2-0 Vicryl and 2 layer s of 3-0 Vicryl. Steri-Strips were applied. Pressure dressing was applied. The patient tolerated the procedure without complication. The patient is to be transferred to recovery room in stable con dition. Following information device: The device itself is MRI compatible, [employer]urity MRI pacemaker. Right ventricular lead is a Tendril MRI [employer] lead. R-wave amplitude is 10, threshold 0.75 at 0.4 volts, impedance of 650. The device was set at lower rate of 50, upper rate of 110. CONCLUSION: Successful implantation of permanent pacemaker. Dictated By: MJ BRYANT MD AV/NTS Conf#: [id number] DID#: [id number] CC: YAIR MURILLO MD;*EndCC*
--- NOTE | 2016-09-28 19:22 | RADRPT ---
PROCEDURE: XR Chest. CLINICAL INDICATION: Pacemaker placement. Shortness of breath. TECHNIQUE: Single frontal view. COMPARISON: 09/28/2016. 0821 hours. FINDINGS: There is a new left-sided single lead permanent pacemaker with the tip overlying the right ventricle . The heart is enlarged. There is calcification in the aorta is with atherosclerosis. There is a large right pleural effusion and extensive atelectasis throughout most of the right lung. There is mild interstitial disease in the left lung. The left lung is otherwise clear and there i s no left pleural effusion. There is no pneumothorax. IMPRESSION: 1. New left-sided permanent pacemaker. 2. No pneumothorax. 3. No other change from the prior study done earlier the same day. RPTAT: QQ .Ministerio Vogt MD, MD Date Time Electronically viewed and signed by .Ministerio Vogt MD, MD on 09/28/2016 19:21 .R/
[2016-09-28] MEDS: morphine 2 MG INJ IV PRN (21:21)
[2016-09-29] VITALS (23 sets, daily range): BP systolic 94–127; BP diastolic 31–110; PULSE 50–86; RESP 10–23
--- NOTE | 2016-09-29 00:08 | PN ---
DATE: 09/28/2016 CARDIOLOGY FOLLOWUP SUBJECTIVE: Discussed with the staff, discussed with Dr. Murillo, discussed with the patient's daughter extensively. The patient has remained in atrial fibrillation with slow ventricular response with h eart rate going as low as 25. The patient is starting to get an atropine to increase the blood pres sure and needed to be transferred to ICU for closer monitoring. After above event, the patient's da ughter has decided that she wants to go ahead with permanent pacemaker placement. I was notified by Dr. Murillo. I did discuss with the patient's daughter, who also confirmed that. MEDICATIONS: Reviewed as per medication reconciliation, personally reviewed. PHYSICAL EXAMINATION: VITAL SIGNS: Temperature 97.5, heart rate of 44, blood pressure 157/64, respiration rate 18, satura ting 100%. HEENT: Normocephalic, atraumatic. Pupils are equal. CARDIOVASCULAR: Irregularly irregular. Systolic murmur. PULMONARY: No wheezes anteriorly. Mild diffuse rhonchi. GASTROINTESTINAL: Soft, nontender. EXTREMITIES: Trivial edema. NEUROLOGIC: Awake, but confused. PSYCHIATRIC: Confused and agitated. LABORATORY: WBC of 7.5, hemoglobin 7.3, platelets of 136. Sodium 140, potassium 3.8, BUN of 31, cr eatinine 1.08, glucose 187. Echocardiogram showed normal LV size and systolic function. There is, however, severe pulmonary hypertension, PA pressure of 95. Moderate tricuspid insufficiency, mild a ortic insufficiency, and severe mitral insufficiency noted. ASSESSMENT AND PLAN: 1. Sick sinus syndrome with marked bradycardia. 2. Atrial fibrillation with slow ventricular response. 3. Gastrointestinal bleed. 4. Hypertension. 5. Encephalopathy. 6. Pulmonary hypertension. RECOMMENDATIONS: Permanent pacemaker is recommended to the patient's daughter. Risks, benefits, al ternatives discussed with her. She has consented to procedure and wants to proceed with it. Of cou rse, I will also discuss it, as well as after discussion, code status was ____ to FULL CODE for ozzie y only because of the procedure. Dictated By: MJ TATE MD AV/NTS Conf#: [id number] DID#: [id number] CC: YAIR MURILLO MD; BALA ARGUELLES MD;*End*
[2016-09-29] MEDS: INSULIN ASPART [NOVOLOG] 3 ML PEN SC SCH ×6 (01:49→21:07)
[2016-09-29] MEDS: DEXTROSE 5%-0.45% NACL 1,000 ML IV SCH ×2 (05:44→08:11)
[2016-09-29 06:04] LABS: ADD SCAN DIFF NO
[2016-09-29 06:13] LABS: ABNORMAL IP MESSAGE 1; BASOPHILS % 0.2 % (0.0-2.0); EOSINOPHILS # 0.1 10^3/ul (0.0-0.5); EOSINOPHILS % 1.1 % (0.0-7.0); HEMATOCRIT 23.8 % (37.0-47.0); HEMOGLOBIN 7.8 g/dl (12.0-16.0); LYMPHOCYTES # 0.3 10^3/ul (0.8-2.9); MEAN CORPUSCULAR HEMOGLOBIN 31.7 pg (29.0-33.0); MEAN CORPUSCULAR HGB CONC 32.8 g/dl (32.0-37.0); MEAN CORPUSCULAR VOLUME 96.7 fl (82.0-101.0); MEAN PLATELET VOLUME 10.4 fl (7.4-10.4); MONOCYTE # 0.5 10^3/ul (0.3-0.9); MONOCYTES % 8.9 % (0.0-11.0); NEUTROPHIL # 4.5 10^3/ul (1.6-7.5); NEUTROPHILS % 83.6 % (39.0-77.0); PLATELET COUNT 125 10^3/UL (140-415); RED BLOOD COUNT 2.46 10^6/ul (4.20-5.40); RED CELL DISTRIBUTION WIDTH 18.9 % (11.5-14.5); WHITE BLOOD COUNT 5.4 10^3/ul (4.8-10.8)
[2016-09-29 06:22] LABS: INR 1.19; PARTIAL THROMBOPLASTIN TIME 28.7 Sec (25.0-35.0); PROTIME 15.2 Sec (12.2-14.2); PT RATIO 1.2
[2016-09-29 06:25] LABS: ALBUMIN 2.6 g/dl (3.3-4.9)
[2016-09-29 06:26] LABS: POTASSIUM 3.7 mmol/L (3.5-5.1)
[2016-09-29 06:28] LABS: BILIRUBIN,INDIRECT 0.4 mg/dl (0-1.1); BILIRUBIN,TOTAL 0.4 mg/dl (0.2-1.3); CREATININE 1.34 mg/dl (0.44-1.00)
[2016-09-29 06:29] LABS: ALBUMIN/GLOBULIN RATIO 0.92; CALCIUM 7.7 mg/dl (8.4-10.2); MAGNESIUM 1.9 mg/dl (1.7-2.5); TOTAL PROTEIN 5.4 g/dl (6.1-8.1)
[2016-09-29] MEDS: PANTOPRAZOLE 40 MG INJ IV SCH ×2 (06:34→17:31)
[2016-09-29] MEDS ORDERED: MIDAZOLAM 1 MG/ML 2 ML INJ ONE (07:00)
--- NOTE | 2016-09-29 08:22 | RADRPT ---
Vent Rate: 50 bpm RR Interval: 0 msec TN Interval: 0 msec QRS Duration: 168 msec QT Interval: 582 msec QTC Interval: 530 msec P-R-T [place]: 0 - 87 - -72 degrees Ventricular paced rhythm Abnormal ECG Electronically Signed By: Carmelo Villagran [id number]
[2016-09-29] MEDS: FUROSEMIDE 40 MG INJ IV SCH (08:56)
--- NOTE | 2016-09-29 09:18 | PN ---
Date/Time of Note Date/Time of Note DATE: 09/29/16 TIME: 09:14 Assessment/Plan VTE Prophylaxis VTE Prophylaxis Intervention: SCD's Lines/Catheters IV [facility] Type [facility] Peripheral IV Urinary Cath still in place: No Assessment/Plan Assessment/Plan 1. Severe anemia secondary to a gastrointestinal bleed. 2. Atrial fibrillation with slow ventricular response. s/p pacemaker placement 09/28/16 3. Diastolic CHF with Moderate to large R sided pleural effusion with preserved EF 4. Severe Mitral valve regurgitation 5. Chronic dementia with patient being ambulant and communicative at baseline. 6. Chronic peripheral vascular disease. 7. Hypertension 8. Pro-qtbgush-uuhsemarp diabetes. We will put the patient on a NovoLog sliding scale. 9. Dyslipidemia 10. DNR per daughter 11. ARF r/o CKD PLAN: * ?Thorcentesis * Commence gentle diuresis * Continue to hold anticoagulation for now / transfuse 1 unit of platelets for bleeding * remain in ICU till cleared by Cardio * f/u GI re: endoscopy and diet * Continue supportive care * Spoke with daughter in detail Subjective 24 Hr Interval Summary Free Text/Dictation * s/p pacemaker placement yesterday * remains in ICU for close monitoring * hgb is dropping and patient is having profuse bleeding from PICC line site Exam/Review of Systems Vital Signs Vitals Vital Signs Date Time Temp Pulse Resp B/P Pulse Ox O2 Delivery O2 Flow Rate FiO2 09/29/16 08:00 50 09/29/16 06:09 2.0 09/29/16 06:00 14 105/38 100 Nasal Cannula 09/29/16 04:00 97.2 Intake and Output 09/28/16 09/28/16 09/29/16 14:59 22:59 06:59 Intake Total 600 ml 325 ml 675 ml Balance 600 ml 325 ml 675 ml Exam Constitutional: alert, obese, No oriented Psych: confusion Head: normocephalic Eyes: PERRL ENMT: other (NGT) Respiratory: diminished breath sounds Cardiovascular: irregular rhythm, murmurs/extra sounds Gastrointestinal: bowel sounds, soft Extremities: edema, other (packing around PICC line soaked) Neurological: confused Results Result Diagram: 09/29/16 0530 09/29/16 0530 Results 24 hrs Laboratory Tests Test 09/28/16 10:04 09/28/16 13:36 09/28/16 18:04 09/28/16 18:08 Anion Gap 14 Blood Urea Nitrogen 31 #H Calcium Level 8.1 L Carbon Dioxide Level 22 Chloride Level 108 Cholesterol Level 138 Cholesterol/HDL Ratio 3.7 Creatinine 1.08 H Digoxin Level < 0.4 L Free Thyroxine 1.61 Glucose Level 187 HDL Cholesterol 37 Hematocrit 26.0 L 25.4 L Hemoglobin 8.8 L 8.7 L LDL Cholesterol, Calculated 81 Magnesium Level 2.1 Phosphorus Level 3.3 Potassium Level 3.8 Sodium Level 140 Thyroid Stimulating Hormone (TSH) 4.100 Triglycerides Level 98 Bedside Glucose 198 207 Test 09/28/16 21:19 09/29/16 01:46 09/29/16 05:30 09/29/16 05:38 Bedside Glucose 207 176 110 Activated Partial Thromboplast Time 28.7 Alanine Aminotransferase (ALT/SGPT) 24 Albumin 2.6 L Albumin/Globulin Ratio 0.92 Alkaline Phosphatase 73 Anion Gap 15 Aspartate Amino Transf (AST/SGOT) 26 Basophils # 0.0 Basophils % 0.2 Blood Urea Nitrogen 26 H Calcium Level 7.7 L Carbon Dioxide Level 21 Chloride Level 108 Creatinine 1.34 H Direct Bilirubin 0.00 Eosinophils # 0.1 Eosinophils % 1.1 Globulin 2.80 Glucose Level 97 # Hematocrit 23.8 L Hemoglobin 7.8 L INR International Normalized Ratio 1.19 Indirect Bilirubin 0.4 Lymphocytes # 0.3 L Lymphocytes % 6.0 L Magnesium Level 1.9 Mean Corpuscular Hemoglobin 31.7 Mean Corpuscular Hemoglobin Concent 32.8 Mean Corpuscular Volume 96.7 Mean Platelet Volume 10.4 Monocytes # 0.5 Monocytes % 8.9 Neutrophils # 4.5 Neutrophils % 83.6 H Nucleated Red Blood Cells # 0.0 Nucleated Red Blood Cells % 0.0 Platelet Count 125 L Potassium Level 3.7 Prothrombin Time 15.2 H Prothrombin Time Ratio 1.2 Red Blood Count 2.46 L Red Cell Distribution Width 18.9 H Sodium Level 140 Total Bilirubin 0.4 Total Protein 5.4 L White Blood Count 5.4 # Test 09/29/16 09:10 Bedside Glucose 126 Medications Medications Current Medications Dextrose/Sodium Chloride (D5-1/2ns) 1,000 ml @ 75 mls/hr [id number] IV Last administered on 09/29/16t 08:11; Admin Dose 75 MLS/HR; Start 09/26/16 at 14:17 Ondansetron HCl (Zofran Inj) 4 mg Q6H PRN IV NAUSEA AND/OR VOMITING; Start at 14:30 Morphine Sulfate (morphine) 2 mg Q4H PRN IV SEVERE PAIN LEVEL 7-10 Last administered on 09/26/16 19:43; Admin Dose 2 MG; Start 09/26/16 at 14:30 Pantoprazole (Protonix Iv) 40 mg BID@,18 IV Last administered on 09/29/16 06 :34; Admin Dose 40 MG; Start 09/26/16 at 18:00 Hydralazine HCl (Apresoline) 10 mg Q4H PRN IV SBP>170 Last administered on 09/28 02:42; Admin Dose 10 MG; Start 09/26/16 at 14:30 Insulin Aspart (Novolog Insulin Pen) NOVOLOG *MILD* ALGORI... Q4 SC Last administered on 09/29/16 01:49; Admin Dose 1 UNIT; Start 09/26/16 at 17:00 Miscellaneous Information 1 ea NOTE XX ; Start 09/26/16 at 15:00 Glucose (Glutose) 15 gm Q15M PRN PO DECREASED GLUCOSE; Start 09/26/16 at 15:00 Glucose (Glutose) 22.5 gm Q15M PRN PO DECREASED GLUCOSE; Start 09/26/16 at 15: 00 Dextrose (D50w Syringe) 25 ml Q15M PRN IV DECREASED GLUCOSE; Start 09/26/16 at 15:00 Dextrose (D50w Syringe) 50 ml Q15M PRN IV DECREASED GLUCOSE; Start 09/26/16 at 15:00 Glucagon (Glucagen) 1 mg Q15M PRN IM DECREASED GLUCOSE; Start 09/26/16 at 15:00 Glucose (Glutose) 15 gm Q15M PRN BUCCAL DECREASED GLUCOSE; Start 09/26/16 at 15 :00 Metoclopramide HCl (Reglan) 5 mg Q6H PRN IV NAUSEA; Start 09/27/16 at 18:00 Furosemide (Lasix) 40 mg DAILY IV Last administered on 09/29/16 08:56; Admin Dose 40 MG; Start 09/28/16 at 16:00 Acetaminophen (Tylenol Tab) 650 mg Q4H PRN PO NON-CARDIAC PAIN LEVEL (1-3); Start 09/28/16 at 18:00 Morphine Sulfate 1 mg 1 mg Q1H PRN IV PAIN Last administered on 09/28/16t 21:21 ; Admin Dose 1 MG; Start 09/28/16 at 18:00 Vancomycin HCl/ Sodium Chloride (Vancocin/NS) 150 ml @ 75 mls/hr Q24H IVPB ; Start 09/29/16 at 16:00 YAIR MURILLO Sep 29, 2016 09:18
--- NOTE | 2016-09-29 09:41 | PN ---
DATE: 09/29/2016 CARDIOLOGY FOLLOWUP PROGRESS NOTE SUBJECTIVE: Discussed with the staff. Rhythm strip was reviewed. The patient remains agitated and confused and even combative at times. Bilirubin was reviewed. She remains on demand ventricular p acemaker. Blood pressure has remained stable. MEDICATIONS: Reviewed as per medical reconciliation, personally reviewed. PAST MEDICAL HISTORY: No history could be obtained from the patient. PHYSICAL EXAMINATION: VITAL SIGNS: Temperature 97.2, heart rate 50, blood pressure 105/38, respiratory rate of 40, satura ting 100%. HEENT: Normocephalic, atraumatic. Pupils are equal. CHEST: Status post permanent pacemaker with no bleeding, no hematoma, no ecchymosis. CARDIOVASCULAR: Regular rate and rhythm. Bradycardia, otherwise stable. Regular rhythm. PULMONARY: With mild rhonchi, diffuse. GASTROINTESTINAL: Soft, nontender. EXTREMITIES: With trivial edema. NEUROLOGIC: Awake, but agitated. PSYCHIATRIC: Appears to be calm. Chest x-ray is still pending. LABORATORY: WBC of 5.4, hemoglobin 7.8, platelets of 125. Sodium 140, potassium 3.8, BUN of 26, cr eatinine 1.34, glucose of 97. Albumin is 2.6. ASSESSMENT AND PLAN: 1. Sick-sinus syndrome with atrial fibrillation with slow ventricular response. 2. Status post permanent pacemaker. 3. Atrial fibrillation. 4. Gastrointestinal bleed. 5. Anemia secondary to gastrointestinal bleed. 6. Hypertension. 7. Encephalopathy. 8. History of pulmonary hypertension 9. Hypertension. RECOMMENDATIONS: Blood pressure currently is stable. Pacemaker was interrogated this morning and s hows normal function of the pacemaker. Okay to transfer to the ICU from a cardiac standpoint for tr ansfusion and GI workup as per GI's recommendation. Chest x-ray has been ordered, has not been done yet. We will order it again. Dictated By: MJ TATE MD AV/NTS Conf#: [id number] DID#: [id number] CC: YAIR MURILLO MD;*EndCC*
--- NOTE | 2016-09-29 10:15 | RADRPT ---
PROCEDURE: Chest x-ray CLINICAL INDICATION: Upper GI bleeding TECHNIQUE: Chest single view COMPARISON: 09/28/2016 FINDINGS: As before there is left-sided single lead pacemaker. Stable moderate cardiomegaly and an sclerotic aortic calcification is seen. There is mild degree interstitial vascular congestion. As before the re is a large right pleural effusion with significant collapse and volume loss of the right lung and shift of the mediastinal structures to the left. Left costophrenic angle sharp. Bones are osteope dea IMPRESSION: 1. Cardiomegaly with ongoing mild interstitial CHF. 2. Stable large right pleural effusion with significant volume loss right lung 3. Extensive atherosclerotic aortic calcification. 4. Pacemaker RPTAT: HH .Abel Doe MD, MD Date Time Electronically viewed and signed by .Abel Doe MD, on 09/29/2016 10:15 .W/
--- NOTE | 2016-09-29 10:38 | CONS ---
Date/Time of Note Date/Time of Note DATE: 09/29/16 TIME: 10:34 Assessment/Plan Assessment/Plan Additional Assessment/Plan Chest x-ray was reviewed from today which is showing a very large right pleural effusion. Assessment recommendations; 1. patient admitted with anemia due to GI bleed with stable hematocrit now. 2. CHF. 3. Cardiac arrhythmia. Patient status post pacemaker implantation. 4. Advanced dementia. 5. Large right pleural effusion. Schedule ultrasound-guided thoracentesis on the right side. Patient has been made a DNR by the family and appropriately so. Prognosis remains guarded. Consultation Date/Type/Reason Admit Date/Time Date of Consultation: Sep 29, 2016 Type of Consultation: Pulmonary/critical care Reason for Consultation Pulmonary consultation obtained for evaluation of large right pleural effusion. Next History presenting; patient is a 85-year-old white lady who was admitted on the of this month with complaints of not feeling well. She also was having black stools. Patient also had bradycardia arrhythmia and underwent pacemaker implantation. Chest x-ray was done which is showing very large developing right pleural effusion. The patient because of advanced dementia with very poor historian. History was obtained from medical records. Past medical history; 1. History of advanced dementia. 2. Diabetes. 3. Hyperlipidemia. 4. Hypertension. Next 5. Recent pacemaker implantation. Medications; were reviewed. Allergies; are to penicillin. Social history; most of any alcohol tobacco abuse. Family history; patient does have a supportive daughter. Occupational history; patient has been a housewife. Review of systems; currently unable to be obtained. General exam; elderly woman, currently in no distress, has occasional episodes of agitation. Social History Smoking Status: Never smoker Exam/Review of Systems Vital Signs Vitals Vital Signs Date Time Temp Pulse Resp B/P Pulse Ox O2 Delivery O2 Flow Rate FiO2 09/29/16 10:00 50 10 127/110 100 Nasal Cannula 2.0 09/29/16 08:00 98.1 Intake and Output 09/28/16 09/28/16 09/29/16 15:00 23:00 07:00 Intake Total 700 ml 375 ml 525 ml Balance 700 ml 375 ml 525 ml Exam HEENT exam is; supple neck, positive JVD. No lymphadenopathy. Midline trachea. No thyromegaly. Patient has a right intraocular lens implant. She is edentulous. No thyromegaly. Chest examination of Evelio; diminished breath sound throughout. S1-S2 audible , no murmurs. There is a pacemaker in the left chest wall. Abdomen examination; soft, nondistended. Nontender. Bowel sounds are sluggish. Extremity exam is; no peripheral edema. SOCIAL STAFF WORKER examination; patient moves all 4 extremities spontaneously. Results Result Diagram: 09/29/16 0530 09/29/16 0530 Results 24 hrs Laboratory Tests Test 09/28/16 13:36 09/28/16 18:04 09/28/16 18:08 09/28/16 21:19 Bedside Glucose 198 207 207 Hemoglobin 8.7 L Hematocrit 25.4 L Test 09/29/16 01:46 09/29/16 05:30 09/29/16 05:38 09/29/16 09:10 Bedside Glucose 176 110 126 White Blood Count 5.4 # Red Blood Count 2.46 L Hemoglobin 7.8 L Hematocrit 23.8 L Mean Corpuscular Volume 96.7 Mean Corpuscular Hemoglobin 31.7 Mean Corpuscular Hemoglobin Concent 32.8 Red Cell Distribution Width 18.9 H Platelet Count 125 L Mean Platelet Volume 10.4 Neutrophils % 83.6 H Lymphocytes % 6.0 L Monocytes % 8.9 Eosinophils % 1.1 Basophils % 0.2 Nucleated Red Blood Cells % 0.0 Neutrophils # 4.5 Lymphocytes # 0.3 L Monocytes # 0.5 Eosinophils # 0.1 Basophils # 0.0 Nucleated Red Blood Cells # 0.0 Prothrombin Time 15.2 H Prothrombin Time Ratio 1.2 INR International Normalized Ratio 1.19 Activated Partial Thromboplast Time 28.7 Sodium Level 140 Potassium Level 3.7 Chloride Level 108 Carbon Dioxide Level 21 Anion Gap 15 Blood Urea Nitrogen 26 H Creatinine 1.34 H Glucose Level 97 # Calcium Level 7.7 L Magnesium Level 1.9 Total Bilirubin 0.4 Direct Bilirubin 0.00 Indirect Bilirubin 0.4 Aspartate Amino Transf (AST/SGOT) 26 Alanine Aminotransferase (ALT/SGPT) 24 Alkaline Phosphatase 73 Total Protein 5.4 L Albumin 2.6 L Globulin 2.80 Albumin/Globulin Ratio 0.92 Medications Medications Current Medications Dextrose/Sodium Chloride (D5-1/2ns) 1,000 ml @ 75 mls/hr [id number] IV Last administered on 09/29/16t 08:11; Admin Dose 75 MLS/HR; Start 09/26/16 at 14:17 Ondansetron HCl (Zofran Inj) 4 mg Q6H PRN IV NAUSEA AND/OR VOMITING; Start at 14:30 Morphine Sulfate (morphine) 2 mg Q4H PRN IV SEVERE PAIN LEVEL 7-10 Last administered on 09/26/16 19:43; Admin Dose 2 MG; Start 09/26/16 at 14:30 Pantoprazole (Protonix Iv) 40 mg BID@,18 IV Last administered on 09/29/16 06 :34; Admin Dose 40 MG; Start 09/26/16 at 18:00 Hydralazine HCl (Apresoline) 10 mg Q4H PRN IV SBP>170 Last administered on 09/28 02:42; Admin Dose 10 MG; Start 09/26/16 at 14:30 Insulin Aspart (Novolog Insulin Pen) NOVOLOG *MILD* ALGORI... Q4 SC Last administered on 09/29/16 01:49; Admin Dose 1 UNIT; Start 09/26/16 at 17:00 Miscellaneous Information 1 ea NOTE XX ; Start 09/26/16 at 15:00 Glucose (Glutose) 15 gm Q15M PRN PO DECREASED GLUCOSE; Start 09/26/16 at 15:00 Glucose (Glutose) 22.5 gm Q15M PRN PO DECREASED GLUCOSE; Start 09/26/16 at 15: 00 Dextrose (D50w Syringe) 25 ml Q15M PRN IV DECREASED GLUCOSE; Start 09/26/16 at 15:00 Dextrose (D50w Syringe) 50 ml Q15M PRN IV DECREASED GLUCOSE; Start 09/26/16 at 15:00 Glucagon (Glucagen) 1 mg Q15M PRN IM DECREASED GLUCOSE; Start 09/26/16 at 15:00 Glucose (Glutose) 15 gm Q15M PRN BUCCAL DECREASED GLUCOSE; Start 09/26/16 at 15 :00 Metoclopramide HCl (Reglan) 5 mg Q6H PRN IV NAUSEA; Start 09/27/16 at 18:00 Furosemide (Lasix) 40 mg DAILY IV Last administered on 09/29/16 08:56; Admin Dose 40 MG; Start 09/28/16 at 16:00 Acetaminophen (Tylenol Tab) 650 mg Q4H PRN PO NON-CARDIAC PAIN LEVEL (1-3); Start 09/28/16 at 18:00 Morphine Sulfate 1 mg 1 mg Q1H PRN IV PAIN Last administered on 09/28/16t 21:21 ; Admin Dose 1 MG; Start 09/28/16 at 18:00 Vancomycin HCl/ Sodium Chloride (Vancocin/NS) 150 ml @ 75 mls/hr Q24H IVPB ; Start 09/29/16 at 16:00 JCOELYN ZAMORA Sep 29, 2016 10:38
--- NOTE | 2016-09-29 12:36 | PN ---
Date/Time of Note Date/Time of Note DATE: 09/29/16 TIME: 12:21 Assessment/Plan VTE Prophylaxis VTE Prophylaxis Intervention: SCD's Lines/Catheters IV [facility] Peripheral IV Urinary Cath still in place: No Assessment/Plan Assessment/Plan Assessment Anemia acute stable 7.8 R/O UGI bleed vs Lower Gi Bleed S/p pacemaker insertion 09/28/2016 Right sided pleural effusion Diastolic CHF . Severe Mitral valve regurgitation Chronic dementia with patient being ambulant and communicative at baseline. Chronic peripheral vascular disease. . Hypertension Kwv-[id number] diabetes. We will put the patient on a NovoLog sliding scale. . Dyslipidemia . DNR per daughter . ARF r/o CKD Plan Monitor h AND h Q6 and transfuse per parameter EGD and colonoscopy once stable PPI Subjective 24 Hr Interval Summary Free Text/Dictation * course reviewed with the nurse * patient seen and examined * S/p pacemaker placement 09/28/16 * patient on npo,no bowel movement * no active hematemesis * present hemoglobin 7.8 * Chest xray * Cardiomegaly with ongoing mild interstitial CHF. . Stable large right pleural effusion with significant volume loss right lung Extensive atherosclerotic aortic calcification. Pacemaker Exam/Review of Systems Vital Signs Vitals Vital Signs Date Time Temp Pulse Resp B/P Pulse Ox O2 Delivery O2 Flow Rate FiO2 09/29/16 10:00 50 10 127/110 100 Nasal Cannula 2.0 09/29/16 08:00 98.1 Intake and Output 09/28/16 09/28/16 09/29/16 15:00 23:00 07:00 Intake Total 700 ml 375 ml 525 ml Balance 700 ml 375 ml 525 ml Exam GENERAL: No acute distress, nonverbal. HEENT: Normocephalic, atraumatic. LUNGS: Decreased breath sounds ,. CARDIOVASCULAR: Regular rate and rhythm. ABDOMEN: Nondistended, nontender, soft. EXTREMITIES: No clubbing, cyanosis, or edema. Results Result Diagram: 09/29/16 0530 09/29/16 0530 Results 24 hrs Laboratory Tests Test 09/28/16 13:36 09/28/16 18:04 09/28/16 18:08 09/28/16 21:19 Bedside Glucose 198 207 207 Hemoglobin 8.7 L Hematocrit 25.4 L Test 09/29/16 01:46 09/29/16 05:30 09/29/16 05:38 09/29/16 09:10 Bedside Glucose 176 110 126 White Blood Count 5.4 # Red Blood Count 2.46 L Hemoglobin 7.8 L Hematocrit 23.8 L Mean Corpuscular Volume 96.7 Mean Corpuscular Hemoglobin 31.7 Mean Corpuscular Hemoglobin Concent 32.8 Red Cell Distribution Width 18.9 H Platelet Count 125 L Mean Platelet Volume 10.4 Neutrophils % 83.6 H Lymphocytes % 6.0 L Monocytes % 8.9 Eosinophils % 1.1 Basophils % 0.2 Nucleated Red Blood Cells % 0.0 Neutrophils # 4.5 Lymphocytes # 0.3 L Monocytes # 0.5 Eosinophils # 0.1 Basophils # 0.0 Nucleated Red Blood Cells # 0.0 Prothrombin Time 15.2 H Prothrombin Time Ratio 1.2 INR International Normalized Ratio 1.19 Activated Partial Thromboplast Time 28.7 Sodium Level 140 Potassium Level 3.7 Chloride Level 108 Carbon Dioxide Level 21 Anion Gap 15 Blood Urea Nitrogen 26 H Creatinine 1.34 H Glucose Level 97 # Calcium Level 7.7 L Magnesium Level 1.9 Total Bilirubin 0.4 Direct Bilirubin 0.00 Indirect Bilirubin 0.4 Aspartate Amino Transf (AST/SGOT) 26 Alanine Aminotransferase (ALT/SGPT) 24 Alkaline Phosphatase 73 Total Protein 5.4 L Albumin 2.6 L Globulin 2.80 Albumin/Globulin Ratio 0.92 Medications Medications Current Medications Dextrose/Sodium Chloride (D5-1/2ns) 1,000 ml @ 75 mls/hr [id number] IV Last administered on 09/29/16 08:11; Admin Dose 75 MLS/HR; Start 09/26/16 at 14:17 Ondansetron HCl (Zofran Inj) 4 mg Q6H PRN IV NAUSEA AND/OR VOMITING; Start at 14:30 Morphine Sulfate (morphine) 2 mg Q4H PRN IV SEVERE PAIN LEVEL 7-10 Last administered on 09/26/16 19:43; Admin Dose 2 MG; Start 09/26/16 at 14:30 Pantoprazole (Protonix Iv) 40 mg BID@06,18 IV Last administered on 09/29/16 06 :34; Admin Dose 40 MG; Start 09/26/16 at 18:00 Hydralazine HCl (Apresoline) 10 mg Q4H PRN IV SBP>170 Last administered on 09/28 02:42; Admin Dose 10 MG; Start 09/26/16 at 14:30 Insulin Aspart (Novolog Insulin Pen) NOVOLOG *MILD* ALGORI... Q4 SC Last administered on 09/29/16 01:49; Admin Dose 1 UNIT; Start 09/26/16 at 17:00 Miscellaneous Information 1 ea NOTE XX ; Start 09/26/16 at 15:00 Glucose (Glutose) 15 gm Q15M PRN PO DECREASED GLUCOSE; Start 09/26/16 at 15:00 Glucose (Glutose) 22.5 gm Q15M PRN PO DECREASED GLUCOSE; Start 09/26/16 at 15: 00 Dextrose (D50w Syringe) 25 ml Q15M PRN IV DECREASED GLUCOSE; Start 09/26/16 at 15:00 Dextrose (D50w Syringe) 50 ml Q15M PRN IV DECREASED GLUCOSE; Start 09/26/16 at 15:00 Glucagon (Glucagen) 1 mg Q15M PRN IM DECREASED GLUCOSE; Start 09/26/16 at 15:00 Glucose (Glutose) 15 gm Q15M PRN BUCCAL DECREASED GLUCOSE; Start 09/26/16 at 15 :00 Metoclopramide HCl (Reglan) 5 mg Q6H PRN IV NAUSEA; Start 09/27/16 at 18:00 Furosemide (Lasix) 40 mg DAILY IV Last administered on 09/29/16 08:56; Admin Dose 40 MG; Start 09/28/16 at 16:00 Acetaminophen (Tylenol Tab) 650 mg Q4H PRN PO NON-CARDIAC PAIN LEVEL (1-3); Start 09/28/16 at 18:00 Morphine Sulfate 1 mg 1 mg Q1H PRN IV PAIN Last administered on 09/28/16 21:21 ; Admin Dose 1 MG; Start 09/28/16 at 18:00 Vancomycin HCl/ Sodium Chloride (Vancocin/NS) 150 ml @ 75 mls/hr Q24H IVPB ; Start 09/29/16 at 16:00 VICTORINA JO MD Sep 29, 2016 12:36
--- NOTE | 2016-09-29 12:46 | RADRPT ---
PROCEDURE: US guidance for PICC line CLINICAL INDICATION: PICC line placement TECHNIQUE: Multiple real-time images were acquired of the patient's arm utilizing a high resolutio n transducer. This was performed by the PICC line nurse for venous access. COMPARISON: None FINDINGS: Ultrasound guidance for PICC line placement. IMPRESSION: Ultrasound guidance for PICC line placement. RPTAT: AA .Anil Sheridan MD, MD Date Time Electronically viewed and signed by .Anil Sheridan MD, on 09/29/2016 12:46 .S/
--- NOTE | 2016-09-29 13:43 | RADRPT ---
PROCEDURE: XR Chest. CLINICAL INDICATION: Check PICC line position. TECHNIQUE: Single frontal view. COMPARISON: 09/29/2016. 0914 hours. FINDINGS: There is a right arm PICC line with the tip in the lower superior vena cava. There is a large right pleural effusion and atelectasis throughout most of the right lung. There is a small left pleural effusion and left basilar atelectasis. The heart is enlarged. There is calcification in the aorta consistent with atherosclerosis. There is a single lead left-sided permanent pacemaker. There is no pneumothorax. IMPRESSION: 1. Satisfactory position of right arm PICC line. 2. No other significant change from 09/29/2016 at 0914 hours. RPTAT: QQ .Ministerio Vogt MD, MD Date Time Electronically viewed and signed by .Ministerio Vogt MD, MD on 09/29/2016 13:42 .R/
[2016-09-29] MEDS ORDERED: LORAZEPAM 2 MG INJ IV ONE (14:00)
[2016-09-29] MEDS ORDERED: LORAZEPAM 2 MG INJ IV PRN (14:00)
[2016-09-29] MEDS ORDERED: SOD CHLORIDE 0.9% 100 ML ONE (14:38)
[2016-09-29] MEDS ORDERED: VANCOMYCIN 750 MG in SOD CHLORIDE 0.9% 150 ML IVPB SCH (16:00)
[2016-09-29] MEDS ORDERED: HALOPERIDOL 5 MG INJ IM ONE (16:00)
--- NOTE | 2016-09-29 16:50 | RADRPT ---
PROCEDURE: US guided right thoracentesis. CLINICAL INDICATION: Shortness of breath. Right pleural effusion. TECHNIQUE: Prior to the procedure, informed consent was obtained. The risks, benefits, and alternatives were e xplained to the patient or the patient's family, including but not limited to bleeding, infection, p ain, visceral or vascular damage, shock, pneumothorax, chest tube placement, air embolism, and . The patient or the patient's family understood the risks and the alternatives and wished to proce ed with the study. Informed written consent was obtained. A procedural pause was performed. The patient's name, date of , and procedure to be performed were verified. Ultrasound of the right hemithorax was performed in the axial and sagittal planes. A right pleural e ffusion is noted. Utilizing ultrasound guidance, optimal location for entry to the pleural cavity wa s ascertained. The overlying skin was prepped and draped in the usual sterile fashion. Approximate ly 10 ml of 1% Xylocaine was injected locally for pain control. Using ultrasound guidance, a 5-Fren Yueh catheter was introduced into the right pleural space without difficulty. Fluid was aspirated . COMPARISON: Chest x-ray done earlier the same day. FINDINGS: Initial ultrasound demonstrates fluid in the right pleural space. Approximately 2.0 liters of serou s fluid was aspirated and discarded. IMPRESSION: 1. Satisfactory ultrasound-guided right thoracentesis. RPTAT: QQ .Ministerio Vogt MD, Date Time Electronically viewed and signed by .Ministerio Vogt MD, on 09/29/2016 16:50 .R/
--- NOTE | 2016-09-29 17:15 | RADRPT ---
PROCEDURE: XR Chest. CLINICAL INDICATION: Shortness of breath. Post right thoracentesis. TECHNIQUE: Single frontal view. COMPARISON: 09/29/2016. FINDINGS: The right arm PICC line and left-sided permanent pacemaker are noted. The large right pleural effus ion seen on the prior study is no longer present. There is only a very small amount of right pleura l fluid remaining. There is mild right basilar atelectasis. There is marked improvement in the aera tion of the right lung. There is mild left basilar atelectasis. The heart is enlarged. There is calcification in the aorta consistent with atherosclerosis. There is no pneumothorax. IMPRESSION: 1. No pneumothorax following right thoracentesis. 2. Marked improvement in the aeration of the right lung. 3. Only a very small right pleural effusion remaining. RPTAT: QQ .Ministerio Vogt MD, Date Time Electronically viewed and signed by .Ministerio Vogt MD, on 09/29/2016 17:15 .R/
[2016-09-29] MEDS ORDERED: LIDOCAINE 1% (MPF) 5 ML VIAL ONE (17:27)
[2016-09-29 20:23] LABS: FLUID APPEARANCE CLEAR; FLUID LYMPHOCYTES 39 %; FLUID NEUTROPHILS 28 %; FLUID TYPE PLEURAL; FLUID WBC'S 18 /cmm
[2016-09-29 20:24] LABS: FLUID BASOPHIL 0 %; FLUID EOSINOPHIL 0 %; FLUID MONOCYTES 33 %
[2016-09-29] MEDS: SUCRALFATE (100 MG/ML) 10ML CUP PO SCH (20:59)
[2016-09-30] VITALS (25 sets, daily range): BP systolic 82–152; BP diastolic 33–113; PULSE 46–92; RESP 11–24
[2016-09-30] MEDS: DEXTROSE 5%-0.45% NACL 1,000 ML IV SCH ×4 (00:32→22:01)
[2016-09-30] MEDS: INSULIN ASPART [NOVOLOG] 3 ML PEN SC SCH ×6 (01:00→21:17)
[2016-09-30] MEDS: PANTOPRAZOLE 40 MG INJ IV SCH ×2 (05:42→17:59)
[2016-09-30 06:02] LABS: ADD SCAN DIFF NO
[2016-09-30 06:15] LABS: ABNORMAL IP MESSAGE 1; BASOPHILS % 0.1 % (0.0-2.0); EOSINOPHILS # 0.1 10^3/ul (0.0-0.5); EOSINOPHILS % 1.2 % (0.0-7.0); HEMATOCRIT 25.6 % (37.0-47.0); HEMOGLOBIN 8.4 g/dl (12.0-16.0); LYMPHOCYTES # 0.5 10^3/ul (0.8-2.9); LYMPHOCYTES % 7.7 % (15.0-51.0); MEAN CORPUSCULAR HEMOGLOBIN 31.9 pg (29.0-33.0); MEAN CORPUSCULAR HGB CONC 32.8 g/dl (32.0-37.0); MEAN CORPUSCULAR VOLUME 97.3 fl (82.0-101.0); MEAN PLATELET VOLUME 10.2 fl (7.4-10.4); MONOCYTE # 0.5 10^3/ul (0.3-0.9); MONOCYTES % 6.9 % (0.0-11.0); NEUTROPHIL # 5.7 10^3/ul (1.6-7.5); NEUTROPHILS % 83.7 % (39.0-77.0); PLATELET COUNT 144 10^3/UL (140-415); RED BLOOD COUNT 2.63 10^6/ul (4.20-5.40); RED CELL DISTRIBUTION WIDTH 17.8 % (11.5-14.5); WHITE BLOOD COUNT 6.8 10^3/ul (4.8-10.8)
[2016-09-30 06:27] LABS: ALBUMIN 2.6 g/dl (3.3-4.9); POTASSIUM 3.6 mmol/L (3.5-5.1)
[2016-09-30 06:29] LABS: CREATININE 1.52 mg/dl (0.44-1.00)
[2016-09-30 06:30] LABS: ALBUMIN/GLOBULIN RATIO 0.86; BILIRUBIN,INDIRECT 0.5 mg/dl (0-1.1); BILIRUBIN,TOTAL 0.5 mg/dl (0.2-1.3); CALCIUM 7.8 mg/dl (8.4-10.2); TOTAL PROTEIN 5.6 g/dl (6.1-8.1)
[2016-09-30] MEDS: SUCRALFATE (100 MG/ML) 10ML CUP PO SCH ×4 (08:43→21:18)
--- NOTE | 2016-09-30 10:13 | CONS ---
Date/Time of Note Date/Time of Note DATE: 09/30/16 TIME: 10:11 Consult Date/Type/Reason Admit Date/Time Sep 26, 2016 at 10:58 Initial Consult Date 09/29/16 Type of Consultation: Pulmonary/critical care Subjective Patient underwent thoracentesis and endoscopy yesterday remains comfortable this morning with no evidence of respiratory distress Still has significant neuromuscular weakness Objective Vital Signs Date Time Temp Pulse Resp B/P Pulse Ox O2 Delivery O2 Flow Rate FiO2 09/30/16 09:00 55 17 140/39 100 4.0 09/30/16 08:00 98.0 09/30/16 01:14 27 09/30/16 00:00 Nasal Cannula Intake and Output 09/29/16 09/29/16 09/30/16 15:00 23:00 07:00 Intake Total 600 ml 600 ml 475 ml Balance 600 ml 600 ml 475 ml Exam GENERAL: Elderly Urdu lady comfortable at rest no acute distress VITAL SIGNS: per chart NECK: Supple. No JVD or lymphadenopathy. CARDIAC EXAM: S1, S2. 2 systolic ejection murmur CHEST: clear bilaterally, No added sounds, rales or wheezes ABDOMEN: Soft, nontender. No guarding or rebound. EXTREMITIES: No cyanosis, clubbing edema +1 NEUROLOGIC: Generalized weakness. Results/Medications Result Diagram: 09/30/16 0540 09/30/16 0540 Results 24 hrs Laboratory Tests Test 09/29/16 13:06 09/29/16 16:35 09/29/16 16:45 09/29/16 21:04 Bedside Glucose 138 170 157 Body Fluid Type PLEURAL Body Fluid Volume 2200.0 Body Fluid Color YELLOW Body Fluid Appearance CLEAR Body Fluid WBC 18 Body Fluid RBC Body Fluid Neutrophils % 28 Body Fluid Lymphocytes (%) 39 Body Fluid Monocytes % 33 Body Fluid Eosinophils % 0 Body Fluid Basophils % 0 Body Fluid Other Cells (%) 0 Test 09/30/16 01:25 09/30/16 05:39 09/30/16 05:40 09/30/16 09:00 Bedside Glucose 137 158 136 White Blood Count 6.8 # Red Blood Count 2.63 L Hemoglobin 8.4 L Hematocrit 25.6 L Mean Corpuscular Volume 97.3 Mean Corpuscular Hemoglobin 31.9 Mean Corpuscular Hemoglobin Concent 32.8 Red Cell Distribution Width 17.8 H Platelet Count 144 Mean Platelet Volume 10.2 Neutrophils % 83.7 H Lymphocytes % 7.7 L Monocytes % 6.9 Eosinophils % 1.2 Basophils % 0.1 Nucleated Red Blood Cells % 0.0 Neutrophils # 5.7 Lymphocytes # 0.5 L Monocytes # 0.5 Eosinophils # 0.1 Basophils # 0.0 Nucleated Red Blood Cells # 0.0 Sodium Level 139 Potassium Level 3.6 Chloride Level 109 Carbon Dioxide Level 21 Anion Gap 13 Blood Urea Nitrogen 27 H Creatinine 1.52 H Glucose Level 142 # Calcium Level 7.8 L Total Bilirubin 0.5 Direct Bilirubin 0.00 Indirect Bilirubin 0.5 Aspartate Amino Transf (AST/SGOT) 40 Alanine Aminotransferase (ALT/SGPT) 31 Alkaline Phosphatase 78 Total Protein 5.6 L Albumin 2.6 L Globulin 3.00 Albumin/Globulin Ratio 0.86 Medications Current Medications Dextrose/Sodium Chloride (D5-1/2ns) 1,000 ml @ 75 mls/hr [id number] IV Last administered on 09/30/16 08:57; Admin Dose 75 MLS/HR; Start 09/26/16 at 14:17 Ondansetron HCl (Zofran Inj) 4 mg Q6H PRN IV NAUSEA AND/OR VOMITING; Start at 14:30 Morphine Sulfate (morphine) 2 mg Q4H PRN IV SEVERE PAIN LEVEL 7-10 Last administered on 09/26/16 19:43; Admin Dose 2 MG; Start 09/26/16 at 14:30 Pantoprazole (Protonix Iv) 40 mg BID@06,18 IV Last administered on 09/30/16 05 :42; Admin Dose 40 MG; Start 09/26/16 at 18:00 Hydralazine HCl (Apresoline) 10 mg Q4H PRN IV SBP>170 Last administered on 09/28 02:42; Admin Dose 10 MG; Start 09/26/16 at 14:30 Insulin Aspart (Novolog Insulin Pen) NOVOLOG *MILD* ALGORI... Q4 SC Last administered on 09/30/16 05:43; Admin Dose 1 UNIT; Start 09/26/16 at 17:00 Miscellaneous Information 1 ea NOTE XX ; Start 09/26/16 at 15:00 Glucose (Glutose) 15 gm Q15M PRN PO DECREASED GLUCOSE; Start 09/26/16 at 15:00 Glucose (Glutose) 22.5 gm Q15M PRN PO DECREASED GLUCOSE; Start 09/26/16 at 15: 00 Dextrose (D50w Syringe) 25 ml Q15M PRN IV DECREASED GLUCOSE; Start 09/26/16 at 15:00 Dextrose (D50w Syringe) 50 ml Q15M PRN IV DECREASED GLUCOSE; Start 09/26/16 at 15:00 Glucagon (Glucagen) 1 mg Q15M PRN IM DECREASED GLUCOSE; Start 09/26/16 at 15:00 Glucose (Glutose) 15 gm Q15M PRN BUCCAL DECREASED GLUCOSE; Start 09/26/16 at 15 :00 Metoclopramide HCl (Reglan) 5 mg Q6H PRN IV NAUSEA; Start 09/27/16 at 18:00 Acetaminophen (Tylenol Tab) 650 mg Q4H PRN PO NON-CARDIAC PAIN LEVEL (1-3); Start 09/28/16 at 18:00 Morphine Sulfate 1 mg 1 mg Q1H PRN IV PAIN Last administered on 09/28/16 21:21 ; Admin Dose 1 MG; Start 09/28/16 at 18:00 Vancomycin HCl/ Sodium Chloride (Vancocin/NS) 150 ml @ 75 mls/hr Q24H IVPB Last administered on 09/29/16 16:13; Admin Dose 75 MLS/HR; Start 09/29/16 at 16 :00 IV Flush (NS 10 ml) 10 ml PRN PRN IV IV PROTOCOL; Start 09/29/16 at 13:00 Sucralfate (Carafate Susp) 1 gm QID PO ; Start 09/29/16 at 21:00 Assessment/Plan Chief Complaint/Hosp Course Assessment 1. Acute hypoxemic respiratory failure 2. Large left pleural effusion status post thoracentesis 3. History of congestive cardiac failure with decreased ejection fraction 4. Anemia questionable GI bleed Plan 1. Await pleural fluid studies 2. Diuresis if tolerated 3. GI recommendations 4. DVT and GI prophylaxis Disposition Patient stable to transfer to telemetry floor Problems: CLAUDETTE LAL MD, [facility] Sep 30, 2016 10:13
[2016-09-30] MEDS: morphine 2 MG INJ IV PRN (10:38)
[2016-09-30] MEDS ORDERED: OLANZAPINE (ODT) 5 MG TAB ODT SCH (11:00)
--- NOTE | 2016-09-30 11:18 | PN ---
DATE: 09/30/2016 CARDIOLOGY FOLLOWUP SUBJECTIVE: Discussed with the staff. Rhythm strip was reviewed. The patient remained mostly on v entricular demand pacemaker. Underlying atrial fibrillation. The patient is still confused, interm ittently combative as well. History in the ICU. No reported active bleeding. Unable to provide any history to me. MEDICATIONS: Reviewed. PHYSICAL EXAMINATION: VITAL SIGNS: Temperature 98, heart rate of 50, blood pressure 114/37, respiratory rate of 12, satur ating 100%. HEENT: Normocephalic, atraumatic. No acute distress. CHEST: Pacemaker with no bleeding, no hematoma. CARDIOVASCULAR: Regular rate and rhythm, systolic murmur. PULMONARY: With no wheezes, no rhonchi. GASTROINTESTINAL: Soft, nontender. EXTREMITIES: Trivial edema. NEUROLOGIC: Awake. PSYCHIATRIC: Agitated. LABORATORY: WBC of 6.8, hemoglobin 8.4, platelet 144, sodium 139, potassium 3.6, BUN of 27, creatin ine of 1.52, glucose 142. Chest x-ray done yesterday showed cardiomegaly, ongoing mild interstitial congestive heart failure. Stable right pleural effusion, significant volume loss right lung, extensive atherosclerosis, aorti c pacemaker. ASSESSMENT AND PLAN: 1. Sick sinus syndrome with atrial fibrillation very slow ventricular response. 2. Status post permanent pacemaker. 3. Severe anemia. 4. Gastrointestinal bleed. 5. Pulmonary hypertension. 6. Encephalopathy. 7. Hypertension, currently controlled. 8. Dementia. 9. Renal failure, acute on chronic. RECOMMENDATIONS: We will continue with the current cardiac care. The pacemaker was interrogated ye sterday and was personally reviewed, which showed normal function of the pacemaker. Follow up with GI regarding recommendations for the GI bleed. The patient is status post endoscopy. Dictated By: MJ TATE MD AV/NTS Conf#: [id number] DID#: [id number] CC: YAIR MURILLO MD;*EndCC*
--- NOTE | 2016-09-30 11:53 | CONS ---
Date/Time of Note Date/Time of Note DATE: 09/30/16 TIME: 11:52 Assessment/Plan Assessment/Plan Additional Assessment/Plan Acute anemia Monitor H&H every 8 hours, transfuse 2 units for hemoglobin less than 7.[address] abdomen Continue PPI twice daily and Carafate 4 times daily EGD 09/29: Large 2 cm gastric ulcer with no stigmata of bleeding. Gastritis. Rule out H. pylori. Biopsies obtained Colonoscopy 09/29: Diverticulosis. Moderate size internal hemorrhoids. S/p pacemaker insertion 09/28/2016 Diastolic CHF Severe Mitral valve regurgitation Hypertension Cardiology following Chronic dementia Management per Primary Type 2 diabetes Management per primary Further recommendations depend on clinical course Patient seen in collaboration with Dr. Tesfaye Consultation Date/Type/Reason Admit Date/Time Sep 26, 2016 at 10:58 Initial Consult Date 09/29/16 Type of Consultation: GI Reason for Consultation Anemia 24 HR Interval Summary Free Text/Dictation Status post EGD and colonoscopy Hemoglobin stable Exam/Review of Systems Vital Signs Vitals Vital Signs Date Time Temp Pulse Resp B/P Pulse Ox O2 Delivery O2 Flow Rate FiO2 09/30/16 11:00 92 24 141/113 95 4.0 09/30/16 08:00 98.0 09/30/16 01:14 27 09/30/16 00:00 Nasal Cannula Intake and Output 09/29/16 09/29/16 09/30/16 15:00 23:00 07:00 Intake Total 600 ml 600 ml 475 ml Balance 600 ml 600 ml 475 ml Exam Constitutional: Profoundly confused Psych: nl mood/affect Head: normocephalic Eyes: EOMI, nl conjunctiva, nl lids ENMT: nl external ears & nose, nl lips & teeth, nl nasal mucosa & septum Respiratory: clear to auscultation, normal air movement Cardiovascular: regular rate and rhythm Gastrointestinal: soft, non-tender Musculoskeletal: nl extremities to inspection Results Result Diagram: 09/30/16 0540 09/30/16 0540 Results 24 hrs Laboratory Tests Test 09/29/16 13:06 09/29/16 16:35 09/29/16 16:45 09/29/16 21:04 Bedside Glucose 138 170 157 Body Fluid Type PLEURAL Body Fluid Volume 2200.0 Body Fluid Color YELLOW Body Fluid Appearance CLEAR Body Fluid WBC 18 Body Fluid RBC Body Fluid Neutrophils % 28 Body Fluid Lymphocytes (%) 39 Body Fluid Monocytes % 33 Body Fluid Eosinophils % 0 Body Fluid Basophils % 0 Body Fluid Other Cells (%) 0 Test 09/30/16 01:25 09/30/16 05:39 09/30/16 05:40 09/30/16 09:00 Bedside Glucose 137 158 136 White Blood Count 6.8 # Red Blood Count 2.63 L Hemoglobin 8.4 L Hematocrit 25.6 L Mean Corpuscular Volume 97.3 Mean Corpuscular Hemoglobin 31.9 Mean Corpuscular Hemoglobin Concent 32.8 Red Cell Distribution Width 17.8 H Platelet Count 144 Mean Platelet Volume 10.2 Neutrophils % 83.7 H Lymphocytes % 7.7 L Monocytes % 6.9 Eosinophils % 1.2 Basophils % 0.1 Nucleated Red Blood Cells % 0.0 Neutrophils # 5.7 Lymphocytes # 0.5 L Monocytes # 0.5 Eosinophils # 0.1 Basophils # 0.0 Nucleated Red Blood Cells # 0.0 Sodium Level 139 Potassium Level 3.6 Chloride Level 109 Carbon Dioxide Level 21 Anion Gap 13 Blood Urea Nitrogen 27 H Creatinine 1.52 H Glucose Level 142 # Calcium Level 7.8 L Total Bilirubin 0.5 Direct Bilirubin 0.00 Indirect Bilirubin 0.5 Aspartate Amino Transf (AST/SGOT) 40 Alanine Aminotransferase (ALT/SGPT) 31 Alkaline Phosphatase 78 Total Protein 5.6 L Albumin 2.6 L Globulin 3.00 Albumin/Globulin Ratio 0.86 Medications Medications Current Medications Dextrose/Sodium Chloride (D5-1/2ns) 1,000 ml @ 75 mls/hr [id number] IV Last administered on 09/30/16 08:57; Admin Dose 75 MLS/HR; Start 09/26/16 at 14:17 Ondansetron HCl (Zofran Inj) 4 mg Q6H PRN IV NAUSEA AND/OR VOMITING; Start at 14:30 Morphine Sulfate (morphine) 2 mg Q4H PRN IV SEVERE PAIN LEVEL 7-10 Last administered on 09/26/16 19:43; Admin Dose 2 MG; Start 09/26/16 at 14:30 Pantoprazole (Protonix Iv) 40 mg BID@06,18 IV Last administered on 09/30/16 05 :42; Admin Dose 40 MG; Start 09/26/16 at 18:00 Hydralazine HCl (Apresoline) 10 mg Q4H PRN IV SBP>170 Last administered on 09/28 02:42; Admin Dose 10 MG; Start 09/26/16 at 14:30 Insulin Aspart (Novolog Insulin Pen) NOVOLOG *MILD* ALGORI... Q4 SC Last administered on 09/30/16 05:43; Admin Dose 1 UNIT; Start 09/26/16 at 17:00 Miscellaneous Information 1 ea NOTE XX ; Start 09/26/16 at 15:00 Glucose (Glutose) 15 gm Q15M PRN PO DECREASED GLUCOSE; Start 09/26/16 at 15:00 Glucose (Glutose) 22.5 gm Q15M PRN PO DECREASED GLUCOSE; Start 09/26/16 at 15: 00 Dextrose (D50w Syringe) 25 ml Q15M PRN IV DECREASED GLUCOSE; Start 09/26/16 at 15:00 Dextrose (D50w Syringe) 50 ml Q15M PRN IV DECREASED GLUCOSE; Start 09/26/16 at 15:00 Glucagon (Glucagen) 1 mg Q15M PRN IM DECREASED GLUCOSE; Start 09/26/16 at 15:00 Glucose (Glutose) 15 gm Q15M PRN BUCCAL DECREASED GLUCOSE; Start 09/26/16 at 15 :00 Metoclopramide HCl (Reglan) 5 mg Q6H PRN IV NAUSEA; Start 09/27/16 at 18:00 Acetaminophen (Tylenol Tab) 650 mg Q4H PRN PO NON-CARDIAC PAIN LEVEL (1-3); Start 09/28/16 at 18:00 Morphine Sulfate 1 mg 1 mg Q1H PRN IV PAIN Last administered on 09/30/16 10:38 ; Admin Dose 1 MG; Start 09/28/16 at 18:00 Vancomycin HCl/ Sodium Chloride (Vancocin/NS) 150 ml @ 75 mls/hr Q24H IVPB Last administered on 09/29/16 16:13; Admin Dose 75 MLS/HR; Start 09/29/16 at 16 :00 IV Flush (NS 10 ml) 10 ml PRN PRN IV IV PROTOCOL; Start 09/29/16 at 13:00 Sucralfate (Carafate Susp) 1 gm QID PO ; Start 09/29/16 at 21:00 Olanzapine (Zyprexa Zydis) 2.5 mg DAILY ODT ; Start 09/30/16 at 11:00 VINAYAK ELLER Sep 30, 2016 11:53 VINAYAK ELLER Sep 30, 2016 11:53 VINAYAK ELLER Sep 30, 2016 11:53
--- NOTE | 2016-09-30 13:22 | PN ---
Date/Time of Note Date/Time of Note DATE: 09/30/16 TIME: 13:15 Assessment/Plan VTE Prophylaxis VTE Prophylaxis Intervention: SCD's VTE Contraindication Reason: bleeding Lines/Catheters IV Catheter Type (from Nrsg): PICC Line Central line still needed: Yes Urinary Cath still in place: Yes Reason Cath still needed: other (indicate) Assessment/Plan Assessment/Plan 1. Severe anemia secondary to a chronic gastrointestinal bleed from large gastric ulcer: improved * EGD 09/29: Large 2 cm gastric ulcer with no stigmata of bleeding. Gastritis. Rule out H. pylori. Biopsies obtained * Colonoscopy 09/29: Diverticulosis. Moderate size internal hemorrhoids. 2. Atrial fibrillation with slow ventricular response. s/p pacemaker placement 09/28/16: improevd and stable rate 3. Diastolic CHF with Moderate to large R sided pleural effusion with preserved EF * s/p thoracentesis 09/29/16: 2.0 liters of serous fluid was aspirated 4. Severe Mitral valve regurgitation 5. Chronic dementia with patient being ambulant and communicative at baseline. 6. Chronic peripheral vascular disease. 7. Hypertension 8. [id number] diabetes. A1C 5.7 / currently NPO d/t mental status 9. Dyslipidemia 10. DNR 11. ARF 2/2 ATN r/o CKD PLAN: * cleared for diet, but still too lethargic. PT eval to see if she can be stimulated to wake up * Use sitter instead of meds to help confusion * Transfer to tele * Continue supportive care * Spoke with daughter in detail CRITICAL CARE TIME: >35 mins of which more than half was spent at the bedside and during counselling Subjective 24 Hr Interval Summary Free Text/Dictation * still quite confused, requiring restraints and intermittent ativan Exam/Review of Systems Vital Signs Vitals Vital Signs Date Time Temp Pulse Resp B/P Pulse Ox O2 Delivery O2 Flow Rate FiO2 09/30/16 11:00 92 24 141/113 95 4.0 09/30/16 08:00 98.0 09/30/16 01:14 27 09/30/16 00:00 Nasal Cannula Intake and Output 09/29/16 09/29/16 09/30/16 15:00 23:00 07:00 Intake Total 600 ml 600 ml 475 ml Balance 600 ml 600 ml 475 ml Exam Constitutional: sleeping, No oriented Psych: confusion Head: normocephalic Eyes: PERRL Respiratory: diminished breath sounds Cardiovascular: irregular rhythm, murmurs/extra sounds Gastrointestinal: bowel sounds, soft Extremities: edema, other (packing around PICC line soaked) Neurological: confused Results Result Diagram: 09/30/16 0540 09/30/16 0540 Results 24 hrs Laboratory Tests Test 09/29/16 16:35 09/29/16 16:45 09/29/16 21:04 09/30/16 01:25 Bedside Glucose 170 157 137 Body Fluid Type PLEURAL Body Fluid Volume 2200.0 Body Fluid Color YELLOW Body Fluid Appearance CLEAR Body Fluid WBC 18 Body Fluid RBC Body Fluid Neutrophils % 28 Body Fluid Lymphocytes (%) 39 Body Fluid Monocytes % 33 Body Fluid Eosinophils % 0 Body Fluid Basophils % 0 Body Fluid Other Cells (%) 0 Test 09/30/16 05:39 09/30/16 05:40 09/30/16 09:00 Bedside Glucose 158 136 White Blood Count 6.8 # Red Blood Count 2.63 L Hemoglobin 8.4 L Hematocrit 25.6 L Mean Corpuscular Volume 97.3 Mean Corpuscular Hemoglobin 31.9 Mean Corpuscular Hemoglobin Concent 32.8 Red Cell Distribution Width 17.8 H Platelet Count 144 Mean Platelet Volume 10.2 Neutrophils % 83.7 H Lymphocytes % 7.7 L Monocytes % 6.9 Eosinophils % 1.2 Basophils % 0.1 Nucleated Red Blood Cells % 0.0 Neutrophils # 5.7 Lymphocytes # 0.5 L Monocytes # 0.5 Eosinophils # 0.1 Basophils # 0.0 Nucleated Red Blood Cells # 0.0 Sodium Level 139 Potassium Level 3.6 Chloride Level 109 Carbon Dioxide Level 21 Anion Gap 13 Blood Urea Nitrogen 27 H Creatinine 1.52 H Glucose Level 142 # Calcium Level 7.8 L Total Bilirubin 0.5 Direct Bilirubin 0.00 Indirect Bilirubin 0.5 Aspartate Amino Transf (AST/SGOT) 40 Alanine Aminotransferase (ALT/SGPT) 31 Alkaline Phosphatase 78 Total Protein 5.6 L Albumin 2.6 L Globulin 3.00 Albumin/Globulin Ratio 0.86 Medications Medications Current Medications Dextrose/Sodium Chloride (D5-1/2ns) 1,000 ml @ 75 mls/hr [id number] IV Last administered on 09/30/16t 08:57; Admin Dose 75 MLS/HR; Start 09/26/16 at 14:17 Ondansetron HCl (Zofran Inj) 4 mg Q6H PRN IV NAUSEA AND/OR VOMITING; Start at 14:30 Morphine Sulfate (morphine) 2 mg Q4H PRN IV SEVERE PAIN LEVEL 7-10 Last administered on 09/26/16 19:43; Admin Dose 2 MG; Start 09/26/16 at 14:30 Pantoprazole (Protonix Iv) 40 mg BID@06,18 IV Last administered on 09/30/16 05 :42; Admin Dose 40 MG; Start 09/26/16 at 18:00 Hydralazine HCl (Apresoline) 10 mg Q4H PRN IV SBP>170 Last administered on 09/28 02:42; Admin Dose 10 MG; Start 09/26/16 at 14:30 Insulin Aspart (Novolog Insulin Pen) NOVOLOG *MILD* ALGORI... Q4 SC Last administered on 09/30/16 05:43; Admin Dose 1 UNIT; Start 09/26/16 at 17:00 Miscellaneous Information 1 ea NOTE XX ; Start 09/26/16 at 15:00 Glucose (Glutose) 15 gm Q15M PRN PO DECREASED GLUCOSE; Start 09/26/16 at 15:00 Glucose (Glutose) 22.5 gm Q15M PRN PO DECREASED GLUCOSE; Start 09/26/16 at 15: 00 Dextrose (D50w Syringe) 25 ml Q15M PRN IV DECREASED GLUCOSE; Start 09/26/16 at 15:00 Dextrose (D50w Syringe) 50 ml Q15M PRN IV DECREASED GLUCOSE; Start 09/26/16 at 15:00 Glucagon (Glucagen) 1 mg Q15M PRN IM DECREASED GLUCOSE; Start 09/26/16 at 15:00 Glucose (Glutose) 15 gm Q15M PRN BUCCAL DECREASED GLUCOSE; Start 09/26/16 at 15 :00 Metoclopramide HCl (Reglan) 5 mg Q6H PRN IV NAUSEA; Start 09/27/16 at 18:00 Acetaminophen (Tylenol Tab) 650 mg Q4H PRN PO NON-CARDIAC PAIN LEVEL (1-3); Start 09/28/16 at 18:00 Morphine Sulfate (morphine) 1 mg Q1H PRN IV PAIN Last administered on 10:38; Admin Dose 1 MG; Start 09/28/16 at 18:00 IV Flush (NS 10 ml) 10 ml PRN PRN IV IV PROTOCOL; Start 09/29/16 at 13:00 Sucralfate (Carafate Susp) 1 gm QID PO ; Start 09/29/16 at 21:00 Olanzapine (Zyprexa Zydis) 2.5 mg DAILY ODT ; Start 09/30/16 at 11:00 YAIR MURILLO Sep 30, 2016 13:22
--- NOTE | 2016-09-30 14:04 | CONS ---
DATE OF ADMISSION: 09/26/2016 DATE OF CONSULTATION: 09/30/2016 REQUESTING PHYSICIAN: Dr. Schmitt REASON FOR CONSULTATION: Acute kidney injury. HISTORY OF PRESENT ILLNESS: This is an 85-year-old female with a past medical history of severe dem entia, history of hypertension, diabetes, history of coronary artery disease, dyslipidemia, history of chronic kidney disease with a baseline creatinine around 112.2 mg/dL, who presents to [facility] on 09/26 with gastrointestinal bleed. The patient was found at home by her daugh ter with dark stools. The patient then developed bright red blood per rectum and as a result came i nto the emergency room. Upon arrival in the emergency room, the patient was noted to be severely anemic with hemoglobin 6.9. The patient was typed and crossed and transfused PRBCs and admitted to intensive care unit. Telma gonsalez the course of the workup, the patient was seen by transport rn, Dr. Tesfaye. An EGD was perf ormed which showed evidence of a gastric ulcer 2 cm, no active sigmoidal bleeding, and a colonoscopy showed diverticulosis. The patient has blood transfusions has noted stable hemoglobin and hematocr it levels and no further bleeding. The patient also on admission noted to have AFib with slow ventr icular response. The patient was seen by endoscopy tech, Dr. Bryant, and a pacemaker was placed on . The patient also noted to have a large right-sided pleural effusion, underwent thoracente sis, was seen by electrical laboratory technician. This was felt to be secondary to decompensated heart failure. The patient has been in intensive care unit during this time. In terms of the patient's renal history, the patient on admission was noted to have a creatinine of 1.12 mg/dL. The patient's creatinine has fluctuated but has declined in the last 24 hours 1.52 mg/d L. During this time, the patient was also noted to be incontinent. Del Rio catheter was placed with over 800 mL urinary output. There has been no evidence of rash and no active evidence of hemoptysis or hematemesis during the hospital course and no noted frothy urine. PAST MEDICAL HISTORY: As stated above, history of dementia, hypertension, diabetes, chronic kidney disease, dyslipidemia. PAST SURGICAL HISTORY: Status post hip replacement surgery, status post venous graft leg. MEDICATIONS: The patient's medications have been reviewed. ALLERGIES: PATIENT IS ALLERGIC TO PENICILLIN. FAMILY HISTORY: Noncontributory. SOCIAL HISTORY: No reports of alcohol or drug use, or family use. REVIEW OF SYSTEMS: Unable to do adequate review of systems as patient is altered. Pertinent positi ves obtained by reviewing medical records, speaking to hospital staff, stated in HPI, otherwise nega tive. PHYSICAL EXAMINATION: VITAL SIGNS: Blood pressure is 83/33, pulse 50, respiration 17, temperature 98.6. I's and O's revi ewed. HEENT: Head is normocephalic. Pupils are reactive to light. NECK: Supple. HEART: Bradycardic. LUNGS: Show diminished breath sounds at base. ABDOMEN: Soft, nontender to palpation without rebound or guarding. EXTREMITIES: Negative for clubbing, cyanosis, no edema. DERMATOLOGIC: No rashes. MUSCULOSKELETAL: No joint effusions. NEUROLOGIC: Limited exam due to lack of patient cooperation. LABORATORY DATA: Shows sodium 139, potassium 3.6, chloride 109, BUN 27, creatinine 1.52. White cou nt 6.8, hemoglobin 8.4, hematocrit 25.6, platelet count is 144. ASSESSMENT AND PLAN: This is an 85-year-old female who presents with: 1. Nonoliguric acute kidney injury on top of chronic kidney disease with previous baseline creatini ne of 1.1 to 1.2 mg/dL. Etiology of acute kidney injury is likely multifactorial secondary to hemod ynamics, possible component of obstructive uropathy. The possibility of tubular injury is also a co nsideration, given patient's severe anemia and hemodynamic fluctuations. The patient is status post Del Rio catheter placement with greater than 800 mL urinary output. Plan at this point is to check a renal ultrasound to rule out definitive obstruction, hydronephrosis. Will check a UA with microana lysis and will check urine electrolytes, calculate a FENa and fractional excretion of urea. Would o therwise continue current treatment plan. Continue gentle IV hydration, monitoring volume status cl osely. Avoid significant hemodynamic fluctuations. Would otherwise continue supportive care, renal ly dose meds, avoid nephrotoxins. 2. Severe anemia, likely secondary to gastrointestinal bleed, diverticular versus peptic ulcer dise ase. The patient is status post blood transfusion. Continue to monitor H and H levels. Continue P rotonix. 3. Mineral bone disorder. Will monitor calcium and phosphorus levels. 4. Hypotension. Etiology may be secondary to medications, questionable volume depletion. The jenny ent is currently on IV fluids, will monitor closely. 5. Right pleural effusion, status post thoracentesis. Underlying etiology is unclear. Serology is and electrolytes criteria is pending. 6. Severe mitral regurgitation. Continue medical management. 7. Severe dementia. Continue to monitor, continue current treatment plan. 8. Coronary artery disease. Continue current treatment plan. 9. Dyslipidemia. Continue statin therapy. 10. Pulmonary hypertension. Thank you, Dr. Schmitt, for this interesting consult. It will be a pleasure to follow patient with you throughout the hospital course. Dictated By: CLYDE TRAVIS/GRIS Conf#: [id number] DID#: [id number]
--- NOTE | 2016-09-30 14:52 | RADRPT ---
PROCEDURE: Renal US. CLINICAL INDICATION: Urinary retention. TECHNIQUE: Multiple sonographic images of the kidneys and urinary bladder were obtained. The imag es were reviewed on a PACS workstation. COMPARISON: No prior studies are available for comparison. FINDINGS: The right kidney measures 9.6 x 4.1 x 3.8 cm. The left kidney measures 10.3 x 5.5 x 4.3 cm. There is no renal mass. There is no hydronephrosis. There is no renal calculus. Both kidneys are hyperechoic consistent with medical renal disease. The perirenal regions are normal with no fluid collection or mass. The urinary bladder is empty due to the presence of a Del Rio catheter. IMPRESSION: 1. Bilateral hyperechoic kidneys consistent with medical renal disease. 2. No hydronephrosis. 3. Del Rio catheter in the bladder. RPTAT: QQ .Ministerio Vogt MD, Date Time Electronically viewed and signed by .Ministerio Vogt MD, on 09/30/2016 14:52 .R/
[2016-10-01] VITALS (24 sets, daily range): BP systolic 98–179; BP diastolic 30–164; PULSE 46–114; RESP 11–33
[2016-10-01] MEDS: INSULIN ASPART [NOVOLOG] 3 ML PEN SC SCH ×6 (01:00→21:13)
[2016-10-01] MEDS: PANTOPRAZOLE 40 MG INJ IV SCH ×2 (05:13→17:08)
[2016-10-01 06:28] LABS: ADD SCAN DIFF NO
[2016-10-01 06:54] LABS: BASOPHILS % 0.4 % (0.0-2.0); EOSINOPHILS # 0.1 10^3/ul (0.0-0.5); EOSINOPHILS % 1.9 % (0.0-7.0); HEMATOCRIT 23.1 % (37.0-47.0); HEMOGLOBIN 7.5 g/dl (12.0-16.0); LYMPHOCYTES # 0.7 10^3/ul (0.8-2.9); LYMPHOCYTES % 12.3 % (15.0-51.0); MEAN CORPUSCULAR HEMOGLOBIN 31.8 pg (29.0-33.0); MEAN CORPUSCULAR HGB CONC 32.5 g/dl (32.0-37.0); MEAN CORPUSCULAR VOLUME 97.9 fl (82.0-101.0); MEAN PLATELET VOLUME 10.3 fl (7.4-10.4); MONOCYTE # 0.5 10^3/ul (0.3-0.9); MONOCYTES % 9.1 % (0.0-11.0); NEUTROPHIL # 4.1 10^3/ul (1.6-7.5); NEUTROPHILS % 75.7 % (39.0-77.0); PLATELET COUNT 128 10^3/UL (140-415); RED BLOOD COUNT 2.36 10^6/ul (4.20-5.40); RED CELL DISTRIBUTION WIDTH 17.7 % (11.5-14.5); WHITE BLOOD COUNT 5.4 10^3/ul (4.8-10.8)
[2016-10-01 07:42] LABS: POTASSIUM 3.7 mmol/L (3.5-5.1)
[2016-10-01 07:44] LABS: CREATININE 1.28 mg/dl (0.44-1.00)
[2016-10-01 07:45] LABS: CALCIUM 7.9 mg/dl (8.4-10.2); MAGNESIUM 1.8 mg/dl (1.7-2.5)
[2016-10-01] MEDS: SUCRALFATE (100 MG/ML) 10ML CUP PO SCH ×4 (08:25→21:00)
--- NOTE | 2016-10-01 08:46 | PN ---
DATE: 10/01/2016 SUBJECTIVE: The patient remains altered, confused, pending a swallow evaluation. No other acute ev ents noted. No hemoptysis, hematemesis or hematochezia. OBJECTIVE: VITAL SIGNS: Blood pressure 122/38, respirations 11, pulse 50, temperature 98.0. HEENT: Head is normocephalic. NECK: Supple. HEART: Regular rate. LUNGS: Showed diminished breath sounds at the base. ABDOMEN: Soft, nontender to palpation. No rebound or guarding. EXTREMITIES: Negative for clubbing or cyanosis. No edema. DERMATOLOGIC: No rashes. MUSCULOSKELETAL: Have no joint effusion. NEUROLOGIC: Limited exam. No change in exam. MEDICATIONS: The patient's medications were reviewed. LABORATORY DATA: Shows sodium 137, potassium 3.7, chloride 109, BUN 24, creatinine 1.28, calcium 7. 9. White count 5.4, hemoglobin 7.5, hematocrit 23.1, platelet count is 128. The patient's renal ul trasound shows bilateral hyperechoic kidneys. Urinalysis is pending. ASSESSMENT AND PLAN: 1. Nonoliguric acute kidney injury on top of chronic kidney disease, with a previous baseline creat inine around 1.1 to 1.2 mg/dL. Etiology of acute kidney injury is likely secondary to hemodynamics, with a component of obstructive uropathy. The patient's renal function has improved after the Fole y catheter placed. Renal ultrasound shows hyperechoic kidneys consistent with chronic kidney diseas e. The patient's urinalysis is still pending, although very low suspicion for acute glomerulonephri tis, vasculitis, or interstitial nephritis, given the patient's clinical presentation and response. At this point, continue the current treatment plan, supportive care, renally dose all meds, continu e gentle IV hydration. 2. Severe anemia, likely secondary to gastrointestinal bleed versus peptic ulcer disease. The jenny ent is status post blood transfusion. Continue to monitor hemoglobin and hematocrit levels. 3. Mineral bone disorder. Continue to monitor calcium and phosphorus levels. 4. Hypertension. Improved. Etiology may have been volume depletion. Continue gentle IV hydration and monitor. 5. Right pleural effusion. Status post thoracentesis. Follow up culture results. 6. Severe mitral regurgitation. Continue medical management. 7. Severe dementia. Continue to monitor. 8. Dysphagia. The patient is pending a swallow evaluation. 9. Coronary artery disease. Continue the current medical management. 10. Dyslipidemia. Continue statin therapy. 11. Pulmonary hypertension. Dictated By: CLYDE TRAVIS/GRIS Conf#: [id number] DID#: [id number]
--- NOTE | 2016-10-01 09:11 | CONS ---
Date/Time of Note Date/Time of Note DATE: 10/01/16 TIME: 09:09 Assessment/Plan Assessment/Plan Additional Assessment/Plan Acute anemia Monitor H&H every 8 hours, transfuse 2 units for hemoglobin less than 7.5 Monitor labs Continue PPI twice daily and Carafate 4 times daily EGD 09/29: Large 2 cm gastric ulcer with no stigmata of bleeding. Gastritis. Rule out H. pylori. Biopsies obtained Colonoscopy 09/29: Diverticulosis. Moderate size internal hemorrhoids. S/p pacemaker insertion 09/28/2016 Diastolic CHF Severe Mitral valve regurgitation Hypertension Cardiology following Chronic dementia Management per Primary Type 2 diabetes Management per primary Further recommendations depend on clinical course Patient seen in collaboration with Dr. Tesfaye Consultation Date/Type/Reason Admit Date/Time Sep 26, 2016 at 10:58 Initial Consult Date 09/29/16 Type of Consultation: GI 24 HR Interval Summary Free Text/Dictation Hemoglobin at 7.5 Redraw of H&H in process May need repeat transfusion Exam/Review of Systems Vital Signs Vitals Vital Signs Date Time Temp Pulse Resp B/P Pulse Ox O2 Delivery O2 Flow Rate FiO2 10/01/16 08:00 50 10/01/16 08:00 11 122/38 100 Room Air 10/01/16 07:00 98.0 10/01/16 05:00 21 09/30/16 19:00 3.0 Intake and Output 09/30/16 09/30/16 10/01/16 15:00 23:00 07:00 Intake Total 525 ml 675 ml 525 ml Output Total 915 ml 335 ml 190 ml Balance -390 ml 340 ml 335 ml Exam Constitutional: Profoundly confused Psych: nl mood/affect Head: normocephalic Eyes: EOMI, nl conjunctiva, nl lids ENMT: nl external ears & nose, nl lips & teeth, nl nasal mucosa & septum Respiratory: clear to auscultation, normal air movement Cardiovascular: regular rate and rhythm Gastrointestinal: soft, non-tender Musculoskeletal: nl extremities to inspection Results Result Diagram: 10/01/16 0530 10/01/16 0530 Results 24 hrs Laboratory Tests Test 09/30/16 13:38 09/30/16 17:58 09/30/16 21:15 10/01/16 01:34 Bedside Glucose 162 113 142 137 Test 10/01/16 04:59 10/01/16 05:30 10/01/16 08:41 Bedside Glucose 134 141 White Blood Count 5.4 # Red Blood Count 2.36 L Hemoglobin 7.5 L Hematocrit 23.1 L Mean Corpuscular Volume 97.9 Mean Corpuscular Hemoglobin 31.8 Mean Corpuscular Hemoglobin Concent 32.5 Red Cell Distribution Width 17.7 H Platelet Count 128 L Mean Platelet Volume 10.3 Neutrophils % 75.7 Lymphocytes % 12.3 L Monocytes % 9.1 Eosinophils % 1.9 Basophils % 0.4 Nucleated Red Blood Cells % 0.0 Neutrophils # 4.1 Lymphocytes # 0.7 L Monocytes # 0.5 Eosinophils # 0.1 Basophils # 0.0 Nucleated Red Blood Cells # 0.0 Sodium Level 137 Potassium Level 3.7 Chloride Level 109 Carbon Dioxide Level 23 Anion Gap 9 Blood Urea Nitrogen 24 H Creatinine 1.28 H Glucose Level 135 Calcium Level 7.9 L Magnesium Level 1.8 Medications Medications Current Medications Dextrose/Sodium Chloride (D5-1/2ns) 1,000 ml @ 75 mls/hr [id number] IV Last administered on 09/30/16 22:01; Admin Dose 75 MLS/HR; Start 09/26/16 at 14:17 Ondansetron HCl (Zofran Inj) 4 mg Q6H PRN IV NAUSEA AND/OR VOMITING; Start at 14:30 Pantoprazole (Protonix Iv) 40 mg BID@06,18 IV Last administered on 10/01/16 05 :13; Admin Dose 40 MG; Start 09/26/16 at 18:00 Hydralazine HCl (Apresoline) 10 mg Q4H PRN IV SBP>170 Last administered on 09/28 02:42; Admin Dose 10 MG; Start 09/26/16 at 14:30 Insulin Aspart (Novolog Insulin Pen) NOVOLOG *MILD* ALGORI... Q4 SC Last administered on 10/01/16 08:46; Admin Dose 1 UNIT; Start 09/26/16 at 17:00 Miscellaneous Information 1 ea NOTE XX ; Start 09/26/16 at 15:00 Glucose (Glutose) 15 gm Q15M PRN PO DECREASED GLUCOSE; Start 09/26/16 at 15:00 Glucose (Glutose) 22.5 gm Q15M PRN PO DECREASED GLUCOSE; Start 09/26/16 at 15: 00 Dextrose (D50w Syringe) 25 ml Q15M PRN IV DECREASED GLUCOSE; Start 09/26/16 at 15:00 Dextrose (D50w Syringe) 50 ml Q15M PRN IV DECREASED GLUCOSE; Start 09/26/16 at 15:00 Glucagon (Glucagen) 1 mg Q15M PRN IM DECREASED GLUCOSE; Start 09/26/16 at 15:00 Glucose (Glutose) 15 gm Q15M PRN BUCCAL DECREASED GLUCOSE; Start 09/26/16 at 15 :00 Metoclopramide HCl (Reglan) 5 mg Q6H PRN IV NAUSEA; Start 09/27/16 at 18:00 Acetaminophen (Tylenol Tab) 650 mg Q4H PRN PO NON-CARDIAC PAIN LEVEL (1-3); Start 09/28/16 at 18:00 IV Flush (NS 10 ml) 10 ml PRN PRN IV IV PROTOCOL; Start 09/29/16 at 13:00 Sucralfate (Carafate Susp) 1 gm QID PO Last administered on 09/30/16t 21:18; Admin Dose 1 GM; Start 09/29/16 at 21:00 Olanzapine (Zyprexa Zydis) 2.5 mg QHS ODT ; Start 10/01/16 at 21:00 VINAYAK ELLER Oct 01, 2016 09:11
[2016-10-01 09:35] LABS: HEMATOCRIT 26.9 % (37.0-47.0); HEMOGLOBIN 8.9 g/dl (12.0-16.0)
--- NOTE | 2016-10-01 10:53 | GILP ---
DATE OF PROCEDURE: 09/29/2016 PROCEDURE: Colonoscopy to cecum. BRIEF HISTORY AND INDICATIONS: The patient with evidence of gastrointestinal bleeding. PREMEDICATION: Monitored anesthesia care by anesthesiologist. SURGEON: Victorina Tesfaye MD. INSTRUMENT USED: Olympus colonoscope PREPARATION: Adequate. TECHNIQUE: After informed consent, with the patient/relatives understanding the procedure, its indic ations potential risks and complications, including but not limited to: allergic reaction, bleeding, perforation, infection, missed lesions and after all pertinent questions were answered to the patie nt's satisfaction, the patient/relatives signed the witnessed informed consent. Following this, premedication was administered slowly IV push by under careful cardiovascular and re spiratory monitoring with pulse oximetry, automatic blood pressure and clinical research monitor. Once the sedativ e effect was achieved, the patient was placed in the left lateral decubitus position, digital rectal examination was performed. The colonoscope was then introduced and advanced under visual control th roughout all segments of the colon including: the rectum, sigmoid, descending colon, splenic flexure , transverse colon, hepatic flexure, ascending colon and finally reaching the cecum which was clearl y identified by transillumination, finger indentation and the ileocecal valve. Careful examination o f the mucosa of the lower gastrointestinal tract both on insertion as well as withdrawal of the inst rument disclosed the following findings: Rectal Examination: No evidence of perirectal disease, no masses. Colonic Mucosa: The colonic mucosa remarkable with diverticulosis in the left side of the colon whi ch is moderate in degree. No evidence of complications noted. The remainder of the colonic mucosa unremarkable. The ileocecal valve was clearly identified and appears unremarkable. The instrument was withdrawn reexamining the mucosa in detail. No additional abnormalities are noted with the excep tion of moderate sized internal hemorrhoids. IMPRESSION: 1. Diverticulosis, left side of the colon. No evidence of complications. 2. Moderate sized internal hemorrhoids. PLAN: The patient will be continued on present regimen. Diet will be advanced as tolerated. Dictated By: VICTORINA TESFAYE MS/GRIS Conf#: [id number] DID#: [id number] CC: VICTORINA TESFAYE;*EndCC*
--- NOTE | 2016-10-01 11:16 | GILP ---
DATE OF PROCEDURE: 09/29/2016 NAME OF PROCEDURE: Esophagogastroduodenoscopy with biopsies. SURGEON: Victorina Tesfaye MD. PREOPERATIVE DIAGNOSIS: POSTOPERATIVE DIAGNOSIS: DESCRIPTION OF PROCEDURE: BRIEF HISTORY AND INDICATIONS: The patient is being evaluated for gastrointestinal bleeding. PREMEDICATION: Monitored anesthesia care by anesthesiologist. INSTRUMENT USED: Olympus endoscope. TECHNIQUE: After informed consent, with the patient/relatives understanding the procedure, its indic ations, potential risks and complications, including but not limited to: allergic reaction, bleeding , perforation or infection, and after all pertinent questions were answered to the patients satisfac tion, the patient/relatives signed witnessed informed consent. Following this, premedication was administered slowly IV push under careful cardiovascular and respi ratory monitoring with pulse oximetry, automatic blood pressure and property assessment monitor. Once the sedative effect was achieved the patient was place in the left lateral decubitus, the panen doscope was introduced and advanced under visual control. Careful examination of the upper gastrointestinal tract, both on insertion as well as withdrawal of the instrument disclosed the following findings: ESOPHAGUS: The mucosa of the entire esophagus appears within normal limits. There is no evidence of esophagitis, varices, neoplasm or stricture. No hiatal hernia identified. STOMACH: Upon entrance to the stomach air was insufflated, the gastric [place] distended normally. Th ere is significant erythema and edema of the mucosa of the body and antrum of the stomach. Biopsies were obtained to rule out H. pylori infection. PYLORUS: The pylorus appears patent and within normal limits. DUODENUM: There is a large 2 cm duodenal ulcer with a clean base and no stigmata. Second portion of the duodenum appears unremarkable. The instrument was then withdrawn, the patient tolerated the procedure well and was transfer out of the endoscopy suite awake, and in good condition to continue recovery under observation IMPRESSION: 1. Large 2 cm duodenal ulcer with no stigmata. Very likely source of episode of bleeding. 2. Gastritis, rule out Helicobacter pylori infection, biopsies obtained. PLAN: The patient will be treated with PPI b.i.d., liquid Carafate. Pathology will be reviewed as soon as available. Further recommendation will depend on her clinical course. Dictated By: VICTORINA TESAFYE MS/GRIS Conf#: [id number] DID#: [id number] CC: Victorina Tesfaye;*EndCC*
[2016-10-01 11:40] LABS: ADD UMIC YES; URINE BILIRUBIN (Dip) NEGATIVE (NEGATIVE); URINE BLOOD (Dip) TRACE (NEGATIVE); URINE COLOR YELLOW (YELLOW); URINE GLUCOSE (Dip) NEGATIVE (NEGATIVE); URINE KETONES (Dip) NEGATIVE (NEGATIVE); URINE LEUKOCYTE ESTERASE (Dip) NEGATIVE (NEGATIVE); URINE NITRITE (Dip) NEGATIVE (NEGATIVE); URINE TOTAL PROTEIN (Dip) TRACE (NEGATIVE); URINE UROBILINOGEN (Dip) 0.2 E.U./dL (0.1-1.0)
[2016-10-01 11:55] LABS: BACTERIA,URINE MODERATE; URINE RBCS 0-2 /HPF ([, 0])
[2016-10-01 12:41] LABS: PROTEIN URINE 28.6 mg/dl (0.0-9.9)
[2016-10-01] MEDS: DEXTROSE 5%-0.45% NACL 1,000 ML IV SCH ×2 (13:06→16:05)
--- NOTE | 2016-10-01 13:54 | PN ---
Date/Time of Note Date/Time of Note DATE: 10/01/16 TIME: 13:53 Assessment/Plan VTE Prophylaxis VTE Prophylaxis Intervention: SCD's VTE Contraindication Reason: peptic ulcer disease Lines/Catheters IV Catheter Type (from Nrs): Peripheral IV Urinary Cath still in place: Yes Reason Cath still needed: other (indicate) Assessment/Plan Assessment/Plan 1. Severe anemia secondary to a chronic gastrointestinal bleed from large gastric ulcer: improved * EGD 09/29: Large 2 cm gastric ulcer with no stigmata of bleeding. Biopsies showed severe gastritis , no H pylori * Colonoscopy 09/29: Diverticulosis. Moderate size internal hemorrhoids. 2. Atrial fibrillation with slow ventricular response. s/p pacemaker placement 09/28/16: improved and stable rate 3. Diastolic CHF with Moderate to large R sided pleural effusion with preserved EF * s/p thoracentesis 09/29/16: 2.0 liters of serous fluid was aspirated * Fluid analysis and culture negative 4. Severe Mitral valve regurgitation 5. Chronic dementia with patient being ambulant and communicative at baseline. 6. Chronic peripheral vascular disease. 7. Hypertension 8. [id number] diabetes. A1C 5.7 / currently NPO d/t mental status 9. Dyslipidemia 10. DNR 11. ARF 2/2 ATN r/o CKD PLAN: * Start Zyprexa ODT for confusion as patient cannot swallow * Neurology consult * Palliative care consult * cleared for diet, but still too lethargic. PT eval to see if she can be stimulated to wake up * Use sitter instead of meds to help confusion * Transfer to tele * Continue supportive care * Spoke with daughter in detail CRITICAL CARE TIME: >35 mins Subjective 24 Hr Interval Summary Free Text/Dictation * still significantly confused * Pulled out PICC line Exam/Review of Systems Vital Signs Vitals Vital Signs Date Time Temp Pulse Resp B/P Pulse Ox O2 Delivery O2 Flow Rate FiO2 10/01/16 13:00 59 22 133/84 97 Room Air 10/01/16 12:01 98.3 10/01/16 05:00 21 09/30/16 19:00 3.0 Intake and Output 09/30/16 09/30/16 10/01/16 15:00 23:00 07:00 Intake Total 525 ml 675 ml 525 ml Output Total 915 ml 335 ml 190 ml Balance -390 ml 340 ml 335 ml Exam Constitutional: alert, mumbling incoherently, restraints and mittens in place No oriented Psych: confusion Head: normocephalic Eyes: PERRL Respiratory: diminished breath sounds Cardiovascular: irregular rhythm, murmurs/extra sounds Gastrointestinal: bowel sounds, soft Extremities: edema, other Neurological: confused Results Result Diagram: 10/01/16 0928 10/01/16 0530 Results 24 hrs Laboratory Tests Test 09/30/16 17:58 09/30/16 21:15 09/30/16 22:00 10/01/16 01:34 Bedside Glucose 113 142 137 Urine Color YELLOW Urine Clarity CLEAR Urine pH 5.5 Urine Specific [place] 1.025 Urine Ketones NEGATIVE Urine Nitrite NEGATIVE Urine Bilirubin NEGATIVE Urine Urobilinogen 0.2 E.U./dL Urine Leukocyte Esterase NEGATIVE Urine Microscopic RBC 0-2 Urine Microscopic WBC 2-5 Urine Bacteria MODERATE Urine Coarse Granular Casts OCCASIONAL Urine Hemoglobin TRACE Urine Random Creatinine 118.56 Urine Random Sodium 28 L Urine Glucose NEGATIVE Urine Total Protein 28.6 H Test 10/01/16 04:59 10/01/16 05:30 10/01/16 08:41 10/01/16 09:28 Bedside Glucose 134 141 White Blood Count 5.4 # Red Blood Count 2.36 L Hemoglobin 7.5 L 8.9 L Hematocrit 23.1 L 26.9 L Mean Corpuscular Volume 97.9 Mean Corpuscular Hemoglobin 31.8 Mean Corpuscular Hemoglobin Concent 32.5 Red Cell Distribution Width 17.7 H Platelet Count 128 L Mean Platelet Volume 10.3 Neutrophils % 75.7 Lymphocytes % 12.3 L Monocytes % 9.1 Eosinophils % 1.9 Basophils % 0.4 Nucleated Red Blood Cells % 0.0 Neutrophils # 4.1 Lymphocytes # 0.7 L Monocytes # 0.5 Eosinophils # 0.1 Basophils # 0.0 Nucleated Red Blood Cells # 0.0 Sodium Level 137 Potassium Level 3.7 Chloride Level 109 Carbon Dioxide Level 23 Anion Gap 9 Blood Urea Nitrogen 24 H Creatinine 1.28 H Glucose Level 135 Calcium Level 7.9 L Magnesium Level 1.8 Test 10/01/16 12:50 Bedside Glucose 161 Medications Medications Current Medications Dextrose/Sodium Chloride (D5-1/2ns) 1,000 ml @ 75 mls/hr [id number] IV Last administered on 10/01/16t 13:06; Admin Dose 75 MLS/HR; Start 09/26/16 at 14:17 Ondansetron HCl (Zofran Inj) 4 mg Q6H PRN IV NAUSEA AND/OR VOMITING; Start at 14:30 Pantoprazole (Protonix Iv) 40 mg BID@,18 IV Last administered on 10/01/16 05 :13; Admin Dose 40 MG; Start 09/26/16 at 18:00 Hydralazine HCl (Apresoline) 10 mg Q4H PRN IV SBP>170 Last administered on 09/28 02:42; Admin Dose 10 MG; Start 09/26/16 at 14:30 Insulin Aspart (Novolog Insulin Pen) NOVOLOG *MILD* ALGORI... Q4 SC Last administered on 10/01/16 12:52; Admin Dose 1 UNIT; Start 09/26/16 at 17:00 Miscellaneous Information 1 ea NOTE XX ; Start 09/26/16 at 15:00 Glucose (Glutose) 15 gm Q15M PRN PO DECREASED GLUCOSE; Start 09/26/16 at 15:00 Glucose (Glutose) 22.5 gm Q15M PRN PO DECREASED GLUCOSE; Start 09/26/16 at 15: 00 Dextrose (D50w Syringe) 25 ml Q15M PRN IV DECREASED GLUCOSE; Start 09/26/16 at 15:00 Dextrose (D50w Syringe) 50 ml Q15M PRN IV DECREASED GLUCOSE; Start 09/26/16 at 15:00 Glucagon (Glucagen) 1 mg Q15M PRN IM DECREASED GLUCOSE; Start 09/26/16 at 15:00 Glucose (Glutose) 15 gm Q15M PRN BUCCAL DECREASED GLUCOSE; Start 09/26/16 at 15 :00 Metoclopramide HCl (Reglan) 5 mg Q6H PRN IV NAUSEA; Start 09/27/16 at 18:00 Acetaminophen (Tylenol Tab) 650 mg Q4H PRN PO NON-CARDIAC PAIN LEVEL (1-3); Start 09/28/16 at 18:00 IV Flush (NS 10 ml) 10 ml PRN PRN IV IV PROTOCOL; Start 09/29/16 at 13:00 Sucralfate (Carafate Susp) 1 gm QID PO Last administered on 09/30/16 21:18; Admin Dose 1 GM; Start 09/29/16 at 21:00 Olanzapine (Zyprexa Zydis) 2.5 mg QHS ODT ; Start 10/01/16 at 21:00 YAIR MURILLO Oct 01, 2016 13:54
[2016-10-01] MEDS ORDERED: OLANZAPINE (ODT) 5 MG TAB ODT SCH (14:30)
--- NOTE | 2016-10-01 16:14 | CONS ---
DATE OF ADMISSION: 09/26/2016 DATE OF CONSULTATION: 10/01/2016 TYPE OF CONSULTATION: Palliative care REFERRING PHYSICIAN: Lisbet Schmitt MD HISTORY OF PRESENT ILLNESS: This is an 85-year-old female who was brought in to the emergency room at [facility] and was diagnosed with severe anemia. She was hypotensive at that t josh, required pressors, transfusions and was seen by Dr. Tesfaye. Then, had an EGD and colonoscopy d one which showed large gastric ulcer, otherwise unremarkable. Colonoscopy without any serious patho logy, nothing related to acute bleed. The patient has been in the intensive care unit and is slowly improving at this time, but has other comorbid major medical problems, most significantly she has a dvanced dementia. She lives at home with her daughter and she is unable to do any of her activities of daily living. Other comorbid problems included arteriosclerotic circulatory vascular disease, h ypertension, type 2 diabetes, obesity. MEDICATIONS: Please refer to reconciliation sheet. ALLERGIES: PENICILLIN. MAJOR MEDICAL PROBLEMS IN THE PAST: As per history of present illness. SOCIAL HISTORY: Lives with family at home. Once again, no history of smoking or drinking. FAMILY HISTORY: Not obtainable. REVIEW OF SYSTEMS: Cannot be obtained. PHYSICAL EXAMINATION: GENERAL: Shows an elderly female who is noncommunicative and tracks me only, does not follow any si mple commands. VITAL SIGNS: Blood pressure 165/92, pulse 91 and regular, respirations of 23, temperature 98.3 degr ees, 93% saturation on room air. HEENT: She is normocephalic and atraumatic. Anicteric, acyanotic on examination. CHEST: Shows bilateral clear breath sounds throughout both lung hernandez. COR: S1, S2, without S3, S4, murmur, gallop, rub. Normal rate, normal rhythm on examination. ABDOMEN: Grossly benign. NEUROLOGIC: Once again, she is oriented x0. Cranial nerves are nonfocal. Motor, sensory findings, she does not move any extremities purposefully. LABORATORY DATA: Have been reviewed. ASSESSMENT AND PLAN: I have spoken to the patient's daughter who was at the bedside. I believe thi s patient would be a good candidate for hospice care, not that she is actively dying, but she could benefit from hospice services. I have spoken to the daughter about that. The daughter expressed to me that she does not think she can take care of her at home by herself any longer. Her mother is 2 4 hours 7 days a week total body care and the daughter is small. I told her that hospice can also f ollow her mother into the community and could visit her mother at a long-term unit. She seems to be receptive to that. I will transfer that information to the case checker and consider hospic e consultation with the patient's daughter prior to discharge. Dictated By: JOSE ANGEL GARRETT MD LP/GRIS Conf#: [id number] DID#: [id number]
[2016-10-01] MEDS: OLANZAPINE (ODT) 5 MG TAB ODT SCH ×2 (21:00→22:09)
[2016-10-02] VITALS (12 sets, daily range): BP systolic 118–168; BP diastolic 60–110; PULSE 49–79; RESP 17–20
[2016-10-02] MEDS: DEXTROSE 5%-0.45% NACL 1,000 ML IV SCH ×2 (00:24→07:47)
[2016-10-02] MEDS: INSULIN ASPART [NOVOLOG] 3 ML PEN SC SCH ×6 (01:00→20:03)
[2016-10-02] MEDS: PANTOPRAZOLE 40 MG INJ IV SCH ×2 (06:30→18:00)
[2016-10-02] MEDS: SUCRALFATE (100 MG/ML) 10ML CUP PO SCH ×4 (09:00→20:03)
--- NOTE | 2016-10-02 10:22 | PN ---
DATE: 10/02/2016 SUBJECTIVE: The patient is stable, no acute events occurred overnight. No hemoptysis, hematemesis or hematochezia. OBJECTIVE: VITAL SIGNS: Blood pressure 146/64, respirations 18, pulse 63, temperature 98.4. HEENT: Head is normocephalic. NECK: Supple. HEART: Regular rate. LUNGS: Show diminished breath sounds at the bases. ABDOMEN: Soft, nontender to palpation. No rebound or guarding. EXTREMITIES: Negative for clubbing, cyanosis. No edema. DERMATOLOGIC: No rashes. MUSCULOSKELETAL: No joint effusions. NEUROLOGIC: No change in exam. MEDICATIONS: The patient's medications have been reviewed. LABORATORY DATA: Currently pending. ASSESSMENT AND PLAN: 1. Nonoliguric acute kidney injury on top of chronic kidney disease with a baseline creatinine arou nd 1 to 1.2 mg/dL. The etiology of acute kidney injury is secondary to hemodynamics with a componen t of obstructive uropathy. The patient's renal function has been improving. At this point, continu e current treatment plan, supportive care, renally dose all meds, avoid nephrotoxins, continue gentl e IV hydration. 2. Severe anemia secondary to gastrointestinal bleed. The patient is status post blood transfusion . Hemoglobin levels have been stable. Continue to monitor. 3. Mineral bone disorder. Continue to monitor calcium and phosphorus levels. 4. Hypertension, improved. 5. Right pleural effusion, status post thoracentesis. Continue to monitor. 6. Severe mitral regurgitation. 7. Dementia. Continue to monitor. 8. Dysphagia. The patient is on a dysphagia diet. 9. Coronary artery disease. Continue medical management. 10. Dyslipidemia. Continue statin therapy. 11. Pulmonary hypertension. Dictated By: CLYDE TRAVIS/GRIS Conf#: [id number] DID#: [id number]
--- NOTE | 2016-10-02 10:28 | PN ---
Date/Time of Note Date/Time of Note DATE: 10/02/16 TIME: 10:25 Assessment/Plan VTE Prophylaxis VTE Prophylaxis Intervention: SCD's VTE Contraindication Reason: bleeding (GI bleed) Lines/Catheters IV Catheter Type (from Nrs): Peripheral IV Urinary Cath still in place: Yes Reason Cath still needed: other (indicate) Assessment/Plan Assessment/Plan 1. Severe anemia secondary to a chronic gastrointestinal bleed from large gastric ulcer: improved * EGD 09/29: Large 2 cm gastric ulcer with no stigmata of bleeding. Biopsies showed severe gastritis , no H pylori * Colonoscopy 09/29: Diverticulosis. Moderate size internal hemorrhoids. 2. Atrial fibrillation with slow ventricular response. * s/p pacemaker placement 09/28/16: improved and stable rate 3. Diastolic CHF with Moderate to large R sided pleural effusion with preserved EF * s/p thoracentesis 09/29/16: 2.0 liters of serous fluid was aspirated * Fluid analysis and culture negative 4. Severe Mitral valve regurgitation 5. Chronic dementia with patient being ambulant and communicative at baseline. 6. Chronic peripheral vascular disease. 7. Hypertension 8. Yhn-[id number]-[id number] diabetes. A1C 5.7 9. Dyslipidemia 10. DNR 11. ARF 2/2 ATN r/o CKD: improving 12. Acute encephalopathy on baseline dementia 13. Probable UTI PLAN: * Continue low dose Zyprexa * f/u cardiology recs regarding pacemaker * Continue PT /ST * Start Levaquin for probable UTI which could be contributing to confusion and send urine for culture * Use sitter instead of meds to help confusion * Continue supportive care * d/w GI if patient is safe for low dose heparin for DVT prophylaxis * Goals of care for now is to wean patient off sitter, improve mentation and the possible d/c patient home with daughter versus SNF possibly on hospice care. CRITICAL CARE TIME: >35 mins Subjective 24 Hr Interval Summary Free Text/Dictation Patient seen and examined. per bedside sitter was able to eat small amount of puree diet today remains confused, but much calmer Nurses having difficulty with IV access after patient pulled out PICC line Pacemaker said to have stopped firing last night with HR going a slow as 45, but was interrogated 1 day ago Exam/Review of Systems Vital Signs Vitals Vital Signs Date Time Temp Pulse Resp B/P Pulse Ox O2 Delivery O2 Flow Rate FiO2 10/02/16 08:19 98.0 53 18 146/64 98 10/02/16 04:00 Room Air 10/01/16 05:00 21 09/30/16 19:00 3.0 Intake and Output 10/01/16 10/01/16 10/02/16 15:00 23:00 07:00 Intake Total 600 ml 225 ml Output Total 175 ml 180 ml 50 ml Balance 425 ml 45 ml -50 ml Exam Constitutional: sleeping, No oriented Psych: confusion Head: normocephalic Eyes: PERRL Respiratory: diminished breath sounds Cardiovascular: irregular rhythm, murmurs/extra sounds Gastrointestinal: bowel sounds, soft Extremities: edema, Neurological: confused Results Result Diagram: 10/01/16 0928 10/01/16 0530 Results 24 hrs Laboratory Tests Test 10/01/16 12:50 10/01/16 16:52 10/01/16 21:09 10/02/16 01:57 Bedside Glucose 161 214 155 129 Test 10/02/16 06:26 10/02/16 08:28 Bedside Glucose 242 H 94 Medications Medications Current Medications Dextrose/Sodium Chloride (D5-1/2ns) 1,000 ml @ 50 mls/hr Q20H IV Last administered on 10/02/16 07:47; Admin Dose 75 MLS/HR; Start 09/26/16 at 14:17 Ondansetron HCl (Zofran Inj) 4 mg Q6H PRN IV NAUSEA AND/OR VOMITING; Start at 14:30 Pantoprazole (Protonix Iv) 40 mg BID@06,18 IV Last administered on 10/02/16 06 :30; Admin Dose 40 MG; Start 09/26/16 at 18:00 Hydralazine HCl (Apresoline) 10 mg Q4H PRN IV SBP>170 Last administered on 09/28 02:42; Admin Dose 10 MG; Start 09/26/16 at 14:30 Insulin Aspart (Novolog Insulin Pen) NOVOLOG *MILD* ALGORI... Q4 SC Last administered on 10/02/16 07:13; Admin Dose 3 UNIT; Start 09/26/16 at 17:00 Miscellaneous Information 1 ea NOTE XX ; Start 09/26/16 at 15:00 Glucose (Glutose) 15 gm Q15M PRN PO DECREASED GLUCOSE; Start 09/26/16 at 15:00 Glucose (Glutose) 22.5 gm Q15M PRN PO DECREASED GLUCOSE; Start 09/26/16 at 15: 00 Dextrose (D50w Syringe) 25 ml Q15M PRN IV DECREASED GLUCOSE; Start 09/26/16 at 15:00 Dextrose (D50w Syringe) 50 ml Q15M PRN IV DECREASED GLUCOSE; Start 09/26/16 at 15:00 Glucagon (Glucagen) 1 mg Q15M PRN IM DECREASED GLUCOSE; Start 09/26/16 at 15:00 Glucose (Glutose) 15 gm Q15M PRN BUCCAL DECREASED GLUCOSE; Start 09/26/16 at 15 :00 Metoclopramide HCl (Reglan) 5 mg Q6H PRN IV NAUSEA; Start 09/27/16 at 18:00 Acetaminophen (Tylenol Tab) 650 mg Q4H PRN PO NON-CARDIAC PAIN LEVEL (1-3); Start 09/28/16 at 18:00 IV Flush (NS 10 ml) 10 ml PRN PRN IV IV PROTOCOL; Start 09/29/16 at 13:00 Sucralfate (Carafate Susp) 1 gm QID PO Last administered on 10/02/16 10:23; Admin Dose 1 GM; Start 09/29/16 at 21:00 Olanzapine (Zyprexa Zydis) 2.5 mg QHS ODT Last administered on 10/01/16 22:09 ; Admin Dose 2.5 MG; Start 10/01/16 at 21:00 YAIR MURILLO Oct 02, 2016 10:28
[2016-10-02 11:03] LABS: ADD SCAN DIFF NO
[2016-10-02 11:12] LABS: BASOPHILS % 0.3 % (0.0-2.0); EOSINOPHILS # 0.1 10^3/ul (0.0-0.5); EOSINOPHILS % 1.9 % (0.0-7.0); HEMOGLOBIN 8.3 g/dl (12.0-16.0); LYMPHOCYTES # 0.8 10^3/ul (0.8-2.9); LYMPHOCYTES % 13.1 % (15.0-51.0); MEAN CORPUSCULAR HEMOGLOBIN 32.4 pg (29.0-33.0); MEAN CORPUSCULAR HGB CONC 33.2 g/dl (32.0-37.0); MEAN CORPUSCULAR VOLUME 97.7 fl (82.0-101.0); MEAN PLATELET VOLUME 9.8 fl (7.4-10.4); MONOCYTE # 0.7 10^3/ul (0.3-0.9); MONOCYTES % 10.5 % (0.0-11.0); NEUTROPHIL # 4.7 10^3/ul (1.6-7.5); NEUTROPHILS % 73.7 % (39.0-77.0); PLATELET COUNT 165 10^3/UL (140-415); RED BLOOD COUNT 2.56 10^6/ul (4.20-5.40); RED CELL DISTRIBUTION WIDTH 17.7 % (11.5-14.5); WHITE BLOOD COUNT 6.4 10^3/ul (4.8-10.8)
[2016-10-02 11:14] LABS: POTASSIUM 3.5 mmol/L (3.5-5.1)
[2016-10-02 11:17] LABS: CREATININE 1.15 mg/dl (0.44-1.00)
[2016-10-02 11:18] LABS: CALCIUM 8.1 mg/dl (8.4-10.2)
--- NOTE | 2016-10-02 11:20 | PN ---
Date/Time of Note Date/Time of Note DATE: 10/02/16 TIME: 11:19 Assessment/Plan VTE Prophylaxis VTE Prophylaxis Intervention: SCD's Lines/Catheters IV Catheter Type (from Nrs): Peripheral IV Urinary Cath still in place: Yes Reason Cath still needed: urinary retention Assessment/Plan Assessment/Plan 1. Sick sinus syndrome with atrial fibrillation very slow ventricular response. 2. Status post permanent pacemaker. 3. Severe anemia. 4. Gastrointestinal bleed. 5. Pulmonary hypertension. 6. Encephalopathy. 7. Hypertension, currently controlled. 8. Dementia. 9. Renal failure, acute on chronic. RECOMMENDATIONS: We will continue with the current cardiac care. The pacemaker was interrogated day before yesterday which showed normal function of the pacemaker. Follow up with GI regarding recommendations for the GI bleed. The patient is status post endoscopy - HR around 50 -will monitor to see if any evidence of pacer undersensing, but pacer checked day before. Subjective 24 Hr Interval Summary Free Text/Dictation the pateitn wtih no symptoms Exam/Review of Systems Vital Signs Vitals Vital Signs Date Time Temp Pulse Resp B/P Pulse Ox O2 Delivery O2 Flow Rate FiO2 10/02/16 08:19 98.0 53 18 146/64 98 10/02/16 04:00 Room Air 10/01/16 05:00 21 09/30/16 19:00 3.0 Intake and Output 10/01/16 10/01/16 10/02/16 15:00 23:00 07:00 Intake Total 600 ml 225 ml Output Total 175 ml 180 ml 50 ml Balance 425 ml 45 ml -50 ml Results Result Diagram: 10/01/16 0928 10/01/16 0530 Results 24 hrs Laboratory Tests Test 10/01/16 12:50 10/01/16 16:52 10/01/16 21:09 10/02/16 01:57 Bedside Glucose 161 214 155 129 Test 10/02/16 06:26 10/02/16 08:28 Bedside Glucose 242 H 94 Medications Medications Current Medications Dextrose/Sodium Chloride (D5-1/2ns) 1,000 ml @ 50 mls/hr Q20H IV Last administered on 10/02/16t 07:47; Admin Dose 75 MLS/HR; Start 09/26/16 at 14:17 Ondansetron HCl (Zofran Inj) 4 mg Q6H PRN IV NAUSEA AND/OR VOMITING; Start at 14:30 Pantoprazole (Protonix Iv) 40 mg BID@,18 IV Last administered on 10/02/16 06 :30; Admin Dose 40 MG; Start 09/26/16 at 18:00 Hydralazine HCl (Apresoline) 10 mg Q4H PRN IV SBP>170 Last administered on 09/28 02:42; Admin Dose 10 MG; Start 09/26/16 at 14:30 Insulin Aspart (Novolog Insulin Pen) NOVOLOG *MILD* ALGORI... Q4 SC Last administered on 10/02/16 07:13; Admin Dose 3 UNIT; Start 09/26/16 at 17:00 Miscellaneous Information 1 ea NOTE XX ; Start 09/26/16 at 15:00 Glucose (Glutose) 15 gm Q15M PRN PO DECREASED GLUCOSE; Start 09/26/16 at 15:00 Glucose (Glutose) 22.5 gm Q15M PRN PO DECREASED GLUCOSE; Start 09/26/16 at 15: 00 Dextrose (D50w Syringe) 25 ml Q15M PRN IV DECREASED GLUCOSE; Start 09/26/16 at 15:00 Dextrose (D50w Syringe) 50 ml Q15M PRN IV DECREASED GLUCOSE; Start 09/26/16 at 15:00 Glucagon (Glucagen) 1 mg Q15M PRN IM DECREASED GLUCOSE; Start 09/26/16 at 15:00 Glucose (Glutose) 15 gm Q15M PRN BUCCAL DECREASED GLUCOSE; Start 09/26/16 at 15 :00 Metoclopramide HCl (Reglan) 5 mg Q6H PRN IV NAUSEA; Start 09/27/16 at 18:00 Acetaminophen (Tylenol Tab) 650 mg Q4H PRN PO NON-CARDIAC PAIN LEVEL (1-3); Start 09/28/16 at 18:00 IV Flush (NS 10 ml) 10 ml PRN PRN IV IV PROTOCOL; Start 09/29/16 at 13:00 Sucralfate (Carafate Susp) 1 gm QID PO Last administered on 10/02/16 10:23; Admin Dose 1 GM; Start 09/29/16 at 21:00 Olanzapine (Zyprexa Zydis) 2.5 mg QHS ODT Last administered on 3/24/17at 22:09 ; Admin Dose 2.5 MG; Start 10/01/16 at 21:00 DILLON SEWELL MD Oct 02, 2016 11:20
--- NOTE | 2016-10-02 13:47 | CONS ---
Date/Time of Note Date/Time of Note DATE: 10/02/16 TIME: 13:46 Assessment/Plan Assessment/Plan Additional Assessment/Plan cute anemia Monitor H&H daily, transfuse 2 units for hemoglobin less than 7.5 Monitor labs Continue PPI twice daily and Carafate 4 times daily EGD 09/29: Large 2 cm gastric ulcer with no stigmata of bleeding. Gastritis. Rule out H. pylori. Biopsies obtained Colonoscopy 09/29: Diverticulosis. Moderate size internal hemorrhoids. S/p pacemaker insertion 09/28/2016 Diastolic CHF Severe Mitral valve regurgitation Hypertension Cardiology following Chronic dementia Management per Primary Type 2 diabetes Management per primary Further recommendations depend on clinical course Patient seen in collaboration with Dr. Tesfaye Consultation Date/Type/Reason Admit Date/Time Sep 26, 2016 at 10:58 Initial Consult Date 09/29/16 Type of Consultation: GI 24 HR Interval Summary Free Text/Dictation Declining food at bedside Hemoglobin stable Exam/Review of Systems Vital Signs Vitals Vital Signs Date Time Temp Pulse Resp B/P Pulse Ox O2 Delivery O2 Flow Rate FiO2 10/02/16 12:00 49 10/02/16 08:19 98.0 18 146/64 98 10/02/16 04:00 Room Air 10/01/16 05:00 21 09/30/16 19:00 3.0 Intake and Output 10/01/16 10/01/16 10/02/16 15:00 23:00 07:00 Intake Total 600 ml 225 ml Output Total 175 ml 180 ml 50 ml Balance 425 ml 45 ml -50 ml Exam Constitutional: Profoundly confused Psych: nl mood/affect Head: normocephalic Eyes: EOMI, nl conjunctiva, nl lids ENMT: nl external ears & nose, nl lips & teeth, nl nasal mucosa & septum Respiratory: clear to auscultation, normal air movement Cardiovascular: regular rate and rhythm Gastrointestinal: soft, non-tender Musculoskeletal: nl extremities to inspection Results Result Diagram: 10/02/16 1025 10/02/16 1025 Results 24 hrs Laboratory Tests Test 10/01/16 16:52 10/01/16 21:09 10/02/16 01:57 10/02/16 06:26 Bedside Glucose 214 155 129 242 H Test 10/02/16 08:28 10/02/16 10:25 10/02/16 11:50 Bedside Glucose 94 124 White Blood Count 6.4 Red Blood Count 2.56 L Hemoglobin 8.3 L Hematocrit 25.0 L Mean Corpuscular Volume 97.7 Mean Corpuscular Hemoglobin 32.4 Mean Corpuscular Hemoglobin Concent 33.2 Red Cell Distribution Width 17.7 H Platelet Count 165 # Mean Platelet Volume 9.8 Neutrophils % 73.7 Lymphocytes % 13.1 L Monocytes % 10.5 Eosinophils % 1.9 Basophils % 0.3 Nucleated Red Blood Cells % 0.0 Neutrophils # 4.7 Lymphocytes # 0.8 Monocytes # 0.7 Eosinophils # 0.1 Basophils # 0.0 Nucleated Red Blood Cells # 0.0 Sodium Level 138 Potassium Level 3.5 Chloride Level 109 Carbon Dioxide Level 24 Anion Gap 9 Blood Urea Nitrogen 19 Creatinine 1.15 H Glucose Level 113 Calcium Level 8.1 L Medications Medications Current Medications Dextrose/Sodium Chloride (D5-1/2ns) 1,000 ml @ 50 mls/hr Q20H IV Last administered on 10/02/16 07:47; Admin Dose 75 MLS/HR; Start 09/26/16 at 14:17 Ondansetron HCl (Zofran Inj) 4 mg Q6H PRN IV NAUSEA AND/OR VOMITING; Start at 14:30 Pantoprazole (Protonix Iv) 40 mg BID@06,18 IV Last administered on 10/02/16 06 :30; Admin Dose 40 MG; Start 09/26/16 at 18:00 Hydralazine HCl (Apresoline) 10 mg Q4H PRN IV SBP>170 Last administered on 09/28 02:42; Admin Dose 10 MG; Start 09/26/16 at 14:30 Insulin Aspart (Novolog Insulin Pen) NOVOLOG *MILD* ALGORI... Q4 SC Last administered on 10/02/16 07:13; Admin Dose 3 UNIT; Start 09/26/16 at 17:00 Miscellaneous Information 1 ea NOTE XX ; Start 09/26/16 at 15:00 Glucose (Glutose) 15 gm Q15M PRN PO DECREASED GLUCOSE; Start 09/26/16 at 15:00 Glucose (Glutose) 22.5 gm Q15M PRN PO DECREASED GLUCOSE; Start 09/26/16 at 15: 00 Dextrose (D50w Syringe) 25 ml Q15M PRN IV DECREASED GLUCOSE; Start 09/26/16 at 15:00 Dextrose (D50w Syringe) 50 ml Q15M PRN IV DECREASED GLUCOSE; Start 09/26/16 at 15:00 Glucagon (Glucagen) 1 mg Q15M PRN IM DECREASED GLUCOSE; Start 09/26/16 at 15:00 Glucose (Glutose) 15 gm Q15M PRN BUCCAL DECREASED GLUCOSE; Start 09/26/16 at 15 :00 Metoclopramide HCl (Reglan) 5 mg Q6H PRN IV NAUSEA; Start 09/27/16 at 18:00 Acetaminophen (Tylenol Tab) 650 mg Q4H PRN PO NON-CARDIAC PAIN LEVEL (1-3); Start 09/28/16 at 18:00 IV Flush (NS 10 ml) 10 ml PRN PRN IV IV PROTOCOL; Start 09/29/16 at 13:00 Sucralfate (Carafate Susp) 1 gm QID PO Last administered on 10/02/16 10:23; Admin Dose 1 GM; Start 09/29/16 at 21:00 Olanzapine (Zyprexa Zydis) 2.5 mg QHS ODT Last administered on 10/01/16 22:09 ; Admin Dose 2.5 MG; Start 10/01/16 at 21:00 VINAYAK ELLER Oct 02, 2016 13:47
--- NOTE | 2016-10-02 14:31 | CONS ---
Date/Time of Note Date/Time of Note DATE: 10/02/16 TIME: 14:30 Assessment/Plan Assessment/Plan Additional Assessment/Plan Assessment recommendations; 1. Patient admitted for anemia status post blood transfusion. 2. Advanced dementia. 3. Large right pleural effusion. Continue current treatment. Consider comfort care measures. Prognosis is poor. Consultation Date/Type/Reason Admit Date/Time Sep 26, 2016 at 10:58 Initial Consult Date 09/29/16 Type of Consultation: Pulmonary 24 HR Interval Summary Free Text/Dictation Patient condition remains unchanged. Remains essentially unresponsive. Has remained hemodynamically stable. General exam; elderly woman currently in no distress. Unresponsive. Exam/Review of Systems Vital Signs Vitals Vital Signs Date Time Temp Pulse Resp B/P Pulse Ox O2 Delivery O2 Flow Rate FiO2 10/02/16 12:00 49 10/02/16 08:19 98.0 18 146/64 98 10/02/16 04:00 Room Air 10/01/16 05:00 21 09/30/16 19:00 3.0 Intake and Output 10/01/16 10/01/16 10/02/16 15:00 23:00 07:00 Intake Total 600 ml 225 ml Output Total 175 ml 180 ml 50 ml Balance 425 ml 45 ml -50 ml Exam HEENT exam is; supple neck, positive JVD. No lymphadenopathy. Midline trachea. Patient is edentulous. No neck masses. No thyromegaly. Chest examination; diminished breath sound bilaterally. S1-S2 audible, no murmurs. Regular rhythm. Abdomen examination; soft, nondistended. No organomegaly. Bowel sounds audible. Extremity examination; no peripheral edema. 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 Results Result Diagram: 10/02/16 1025 10/02/16 1025 Results 24 hrs Laboratory Tests Test 10/01/16 16:52 10/01/16 21:09 10/02/16 01:57 10/02/16 06:26 Bedside Glucose 214 155 129 242 H Test 10/02/16 08:28 10/02/16 10:25 10/02/16 11:50 Bedside Glucose 94 124 White Blood Count 6.4 Red Blood Count 2.56 L Hemoglobin 8.3 L Hematocrit 25.0 L Mean Corpuscular Volume 97.7 Mean Corpuscular Hemoglobin 32.4 Mean Corpuscular Hemoglobin Concent 33.2 Red Cell Distribution Width 17.7 H Platelet Count 165 # Mean Platelet Volume 9.8 Neutrophils % 73.7 Lymphocytes % 13.1 L Monocytes % 10.5 Eosinophils % 1.9 Basophils % 0.3 Nucleated Red Blood Cells % 0.0 Neutrophils # 4.7 Lymphocytes # 0.8 Monocytes # 0.7 Eosinophils # 0.1 Basophils # 0.0 Nucleated Red Blood Cells # 0.0 Sodium Level 138 Potassium Level 3.5 Chloride Level 109 Carbon Dioxide Level 24 Anion Gap 9 Blood Urea Nitrogen 19 Creatinine 1.15 H Glucose Level 113 Calcium Level 8.1 L Medications Medications Current Medications Dextrose/Sodium Chloride (D5-1/2ns) 1,000 ml @ 50 mls/hr Q20H IV Last administered on 10/02/16 07:47; Admin Dose 75 MLS/HR; Start 09/26/16 at 14:17 Ondansetron HCl (Zofran Inj) 4 mg Q6H PRN IV NAUSEA AND/OR VOMITING; Start at 14:30 Pantoprazole (Protonix Iv) 40 mg BID@06,18 IV Last administered on 10/02/16 06 :30; Admin Dose 40 MG; Start 09/26/16 at 18:00 Hydralazine HCl (Apresoline) 10 mg Q4H PRN IV SBP>170 Last administered on 09/28 02:42; Admin Dose 10 MG; Start 09/26/16 at 14:30 Insulin Aspart (Novolog Insulin Pen) NOVOLOG *MILD* ALGORI... Q4 SC Last administered on 10/02/16 07:13; Admin Dose 3 UNIT; Start 09/26/16 at 17:00 Miscellaneous Information 1 ea NOTE XX ; Start 09/26/16 at 15:00 Glucose (Glutose) 15 gm Q15M PRN PO DECREASED GLUCOSE; Start 09/26/16 at 15:00 Glucose (Glutose) 22.5 gm Q15M PRN PO DECREASED GLUCOSE; Start 09/26/16 at 15: 00 Dextrose (D50w Syringe) 25 ml Q15M PRN IV DECREASED GLUCOSE; Start 09/26/16 at 15:00 Dextrose (D50w Syringe) 50 ml Q15M PRN IV DECREASED GLUCOSE; Start 09/26/16 at 15:00 Glucagon (Glucagen) 1 mg Q15M PRN IM DECREASED GLUCOSE; Start 09/26/16 at 15:00 Glucose (Glutose) 15 gm Q15M PRN BUCCAL DECREASED GLUCOSE; Start 09/26/16 at 15 :00 Metoclopramide HCl (Reglan) 5 mg Q6H PRN IV NAUSEA; Start 09/27/16 at 18:00 Acetaminophen (Tylenol Tab) 650 mg Q4H PRN PO NON-CARDIAC PAIN LEVEL (1-3); Start 09/28/16 at 18:00 IV Flush (NS 10 ml) 10 ml PRN PRN IV IV PROTOCOL; Start 09/29/16 at 13:00 Sucralfate (Carafate Susp) 1 gm QID PO Last administered on 10/02/16 10:23; Admin Dose 1 GM; Start 09/29/16 at 21:00 Olanzapine (Zyprexa Zydis) 2.5 mg QHS ODT Last administered on 10/01/16 22:09 ; Admin Dose 2.5 MG; Start 10/01/16 at 21:00 JOCELYN ZAMORA Oct 02, 2016 14:31
[2016-10-02] MEDS: LEVOFLOXACIN 500MG/D5W (PMX) 100 ML IVPB SCH (16:30)
[2016-10-02] MEDS: OLANZAPINE (ODT) 5 MG TAB ODT SCH (22:15)
[2016-10-03] VITALS (12 sets, daily range): BP systolic 100–134; BP diastolic 43–92; PULSE 50–87; RESP 17–20
[2016-10-03] MEDS: INSULIN ASPART [NOVOLOG] 3 ML PEN SC SCH ×6 (00:52→20:30)
[2016-10-03] MEDS: PANTOPRAZOLE 40 MG INJ IV SCH ×2 (05:18→17:13)
[2016-10-03 09:09] LABS: ADD SCAN DIFF NO
[2016-10-03] MEDS: SUCRALFATE (100 MG/ML) 10ML CUP PO SCH ×4 (09:17→20:22)
[2016-10-03 09:19] LABS: BASOPHILS % 0.3 % (0.0-2.0); EOSINOPHILS # 0.1 10^3/ul (0.0-0.5); EOSINOPHILS % 1.5 % (0.0-7.0); HEMATOCRIT 24.7 % (37.0-47.0); HEMOGLOBIN 8.1 g/dl (12.0-16.0); LYMPHOCYTES # 0.9 10^3/ul (0.8-2.9); LYMPHOCYTES % 15.2 % (15.0-51.0); MEAN CORPUSCULAR HEMOGLOBIN 31.9 pg (29.0-33.0); MEAN CORPUSCULAR HGB CONC 32.8 g/dl (32.0-37.0); MEAN CORPUSCULAR VOLUME 97.2 fl (82.0-101.0); MEAN PLATELET VOLUME 9.7 fl (7.4-10.4); MONOCYTE # 0.7 10^3/ul (0.3-0.9); MONOCYTES % 11.1 % (0.0-11.0); NEUTROPHIL # 4.4 10^3/ul (1.6-7.5); NEUTROPHILS % 71.6 % (39.0-77.0); PLATELET COUNT 166 10^3/UL (140-415); RED BLOOD COUNT 2.54 10^6/ul (4.20-5.40); RED CELL DISTRIBUTION WIDTH 17.6 % (11.5-14.5); WHITE BLOOD COUNT 6.1 10^3/ul (4.8-10.8)
[2016-10-03 09:33] LABS: CREATININE 1.04 mg/dl (0.44-1.00)
[2016-10-03 09:34] LABS: CALCIUM 8.3 mg/dl (8.4-10.2)
--- NOTE | 2016-10-03 09:47 | PN ---
DATE: SUBJECTIVE: The patient is stable, no acute events overnight. No hemoptysis, hematemesis or hemato chezia. OBJECTIVE: VITAL SIGNS: Blood pressure 105/ , respirations 20, pulse 49, temperature 98.0. I's and O's reviewed. HEENT: Head is normocephalic. NECK: Supple. HEART: Regular rate. LUNGS: Show diminished breath sounds at the bases. ABDOMEN: Soft, nontender to palpation. No rebound or guarding. EXTREMITIES: Negative for clubbing or cyanosis. No edema. DERMATOLOGIC: No rashes. MUSCULOSKELETAL: No joint effusion. NEUROLOGIC: No change in exam. MEDICATIONS: The patient's medications have been reviewed. LABORATORY DATA: From 10/02/2016 was reviewed; sodium was 138, potassium of 5, BUN 19, creatinine 1 .15. White count 6.4, hemoglobin 9.3, hematocrit 35.0, platelet count is 165. ASSESSMENT AND PLAN: 1. Nonoliguric acute kidney injury on top of chronic kidney disease with baseline creatinine betwee n 1 to 1.2 mg mg/dL. The etiology of acute kidney injury is secondary to hemodynamics. The patient 's renal function has improved. At this point, continue current treatment plan, supportive care, re donte dosed medications. Will discontinue IV fluids. 2. Severe anemia secondary to gastrointestinal bleed. The patient is status post blood transfusion , monitor H and H levels. 3. Mineral bone disorder. Continue to monitor calcium and phosphorus levels. 4. Hypertension, improved. 5. Right pleural effusion, status post thoracentesis. 6. Mitral regurgitation. Continue to monitor. 7. Dementia. Continue current treatment plan. 8. Dysphagia. Continued dysphagia diet. 9. Coronary artery disease. Continue medical management. 10. Dyslipidemia. Continue statin therapy. 11. Pulmonary hypertension. Dictated By: CLYDE TRAVIS/GRIS Conf#: [id number] DID#: [id number]
--- NOTE | 2016-10-03 09:56 | PN ---
DATE: 10/03/2016 SUBJECTIVE: Patient remains confused and combative, and in no distress. Recent GI bleed. PHYSICAL EXAMINATION: GENERAL: She is nonverbal. VITAL SIGNS: Temperature 98, pulse 53, blood pressure 105/49, oxygen saturation 94%. NECK: No jugular venous distention. LUNGS: Decreased breath sounds bilaterally. CARDIAC: Regular rate and rhythm. ABDOMEN: Soft. EXTREMITIES: Reveal no edema. LABORATORY RESULTS: White count 7.4, hematocrit 25, platelet count 165. Sodium 130, potassium 3.5, BUN 19, creatinine 1.1. MEDICATIONS: 1. Levaquin. 2. Reglan. 3. Protonix. 4. Insulin. ASSESSMENT: Gastrointestinal bleed status post upper and lower endoscopy, atrial fibrillation on pa cemaker, status post pacemaker rhythm now stable, underlying AFib with anticoagulation held due to sharad sands, diastolic heart failure, status post thoracentesis, mitral regurgitation, dementia. The patient will continue current care and follow with Dr. Bryant beginning tomorrow. Dictated By: MILKA ALEJANDRA/GRIS Conf#: [id number] DID#: [id number]
--- NOTE | 2016-10-03 11:18 | PN ---
Date/Time of Note Date/Time of Note DATE: 10/03/16 TIME: 11:09 Assessment/Plan VTE Prophylaxis VTE Prophylaxis Intervention: SCD's Lines/Catheters IV Catheter Type (from Nrs): Peripheral IV Urinary Cath still in place: Yes Reason Cath still needed: other (indicate) Assessment/Plan Assessment/Plan 1. Acute encephalopathy on chronic dementia ?2/2 UTI 2. Severe anemia secondary to a chronic gastrointestinal bleed from large gastric ulcer on EGD * HGb is dropping again 3. Chronic Atrial fibrillation with slow ventricular response (severe bradycardia) 4. S/p pacemaker placement 09/28/16: improved and stable rate 5. Diastolic CHF with with preserved EF: 6. S/p thoracentesis 09/29/16 for Moderate to large R sided pleural effusion 2/ 2 CHF: 2.0 liters of serous fluid was aspirated /Fluid analysis and culture negative 7. Severe Mitral valve regurgitation 8. ARF 2/2 ATN r/o CKD: improving 9. Hypertension 10. [id number]-suxuyezts diabetes. A1C 5.7 11. Dyslipidemia 12. DNR 13. Chronic peripheral vascular disease. PLAN: * Plan to transfuse if hgb drops below 8 / Continue to hold anticoagulation * Seroquel for confusion (Nurses are able to crush) * Resume lasix for CHF if ok with Nephro * Continue PT /ST * Patient is on Levaquin for probable UTI which could be contributing to confusion and send urine for culture * Use sitter instead of meds to help confusion * Continue supportive care * Goals of care for now is to wean patient off sitter, improve mentation and the possible d/c patient home with daughter versus SNF possibly on hospice care. Prophylaxis: SCDs / PPI Subjective 24 Hr Interval Summary Free Text/Dictation spoke with sitter Patient seems to be eating more Still confused, but more responsive to daughter and family Exam/Review of Systems Vital Signs Vitals Vital Signs Date Time Temp Pulse Resp B/P Pulse Ox O2 Delivery O2 Flow Rate FiO2 10/03/16 08:04 53 10/03/16 07:40 98.0 20 105/49 94 10/02/16 16:25 Room Air 10/01/16 05:00 21 09/30/16 19:00 3.0 Intake and Output 10/02/16 10/02/16 10/03/16 15:00 23:00 07:00 Intake Total 320 ml Output Total 380 ml Balance -60 ml Exam Constitutional: sleeping, No oriented Psych: confusion Head: normocephalic Eyes: PERRL Respiratory: diminished breath sounds Cardiovascular: irregular rhythm, murmurs/extra sounds Gastrointestinal: bowel sounds, soft Extremities: edema, Neurological: confused Results Result Diagram: 10/03/16 0655 10/03/16 0655 Results 24 hrs Laboratory Tests Test 10/02/16 11:50 10/02/16 17:28 10/02/16 20:02 10/03/16 06:55 Bedside Glucose 124 139 144 White Blood Count 6.1 Red Blood Count 2.54 L Hemoglobin 8.1 L Hematocrit 24.7 L Mean Corpuscular Volume 97.2 Mean Corpuscular Hemoglobin 31.9 Mean Corpuscular Hemoglobin Concent 32.8 Red Cell Distribution Width 17.6 H Platelet Count 166 Mean Platelet Volume 9.7 Neutrophils % 71.6 Lymphocytes % 15.2 Monocytes % 11.1 H Eosinophils % 1.5 Basophils % 0.3 Nucleated Red Blood Cells % 0.0 Neutrophils # 4.4 Lymphocytes # 0.9 Monocytes # 0.7 Eosinophils # 0.1 Basophils # 0.0 Nucleated Red Blood Cells # 0.0 Sodium Level 139 Potassium Level 4.0 Chloride Level 111 H Carbon Dioxide Level 22 Anion Gap 10 Blood Urea Nitrogen 19 Creatinine 1.04 H Glucose Level 111 Calcium Level 8.3 L Magnesium Level 1.9 Test 10/03/16 07:57 Bedside Glucose 119 Medications Medications Current Medications Ondansetron HCl (Zofran Inj) 4 mg Q6H PRN IV NAUSEA AND/OR VOMITING; Start at 14:30 Pantoprazole (Protonix Iv) 40 mg BID@06,18 IV Last administered on 10/02/16 06 :30; Admin Dose 40 MG; Start 09/26/16 at 18:00 Hydralazine HCl (Apresoline) 10 mg Q4H PRN IV SBP>170 Last administered on 09/28 02:42; Admin Dose 10 MG; Start 09/26/16 at 14:30 Insulin Aspart (Novolog Insulin Pen) NOVOLOG *MILD* ALGORI... Q4 SC Last administered on 10/02/16 07:13; Admin Dose 3 UNIT; Start 09/26/16 at 17:00 Miscellaneous Information 1 ea NOTE XX ; Start 09/26/16 at 15:00 Glucose (Glutose) 15 gm Q15M PRN PO DECREASED GLUCOSE; Start 09/26/16 at 15:00 Glucose (Glutose) 22.5 gm Q15M PRN PO DECREASED GLUCOSE; Start 09/26/16 at 15: 00 Dextrose (D50w Syringe) 25 ml Q15M PRN IV DECREASED GLUCOSE; Start 09/26/16 at 15:00 Dextrose (D50w Syringe) 50 ml Q15M PRN IV DECREASED GLUCOSE; Start 09/26/16 at 15:00 Glucagon (Glucagen) 1 mg Q15M PRN IM DECREASED GLUCOSE; Start 09/26/16 at 15:00 Glucose (Glutose) 15 gm Q15M PRN BUCCAL DECREASED GLUCOSE; Start 09/26/16 at 15 :00 Metoclopramide HCl (Reglan) 5 mg Q6H PRN IV NAUSEA; Start 09/27/16 at 18:00 Acetaminophen (Tylenol Tab) 650 mg Q4H PRN PO NON-CARDIAC PAIN LEVEL (1-3); Start 09/28/16 at 18:00 IV Flush (NS 10 ml) 10 ml PRN PRN IV IV PROTOCOL; Start 09/29/16 at 13:00 Sucralfate (Carafate Susp) 1 gm QID PO Last administered on 10/03/16 09:17; Admin Dose 1 GM; Start 09/29/16 at 21:00 Olanzapine 2.5 mg 2.5 mg QHS ODT Last administered on 10/02/16 22:15; Admin Dose 2.5 MG; Start 10/01/16 at 21:00 Levofloxacin/ Dextrose (Levaquin 500mg/ D5W 100 ml (Pmx)) 100 ml @ 100 mls/hr Q24H IVPB ; Start 10/02/16 at 16:30 YAIR MURILLO Oct 03, 2016 11:18
--- NOTE | 2016-10-03 13:56 | CONS ---
Date/Time of Note Date/Time of Note DATE: 10/03/16 TIME: 13:45 Assessment/Plan Assessment/Plan Additional Assessment/Plan Acute anemia Monitor H&H daily, transfuse 2 units for hemoglobin less than 7.5 Monitor labs Continue PPI twice daily and Carafate 4 times daily EGD 09/29: Large 2 cm gastric ulcer with no stigmata of bleeding. Gastritis. Biopsies negative Colonoscopy 09/29: Diverticulosis. Moderate size internal hemorrhoids. S/p pacemaker insertion 09/28/2016 Diastolic CHF Severe Mitral valve regurgitation Hypertension Cardiology following Chronic dementia Management per Primary Type 2 diabetes Management per primary Further recommendations depend on clinical course Patient seen in collaboration with Dr. Tesfaye Consultation Date/Type/Reason Admit Date/Time Sep 26, 2016 at 10:58 Initial Consult Date 09/29/16 Type of Consultation: GI 24 HR Interval Summary Free Text/Dictation Hemoglobin stable Biopsy negative for H. pylori and malignancy GI sign off Exam/Review of Systems Vital Signs Vitals Vital Signs Date Time Temp Pulse Resp B/P Pulse Ox O2 Delivery O2 Flow Rate FiO2 10/03/16 13:04 98.1 49 18 100/43 92 10/02/16 16:25 Room Air 10/01/16 05:00 21 09/30/16 19:00 3.0 Intake and Output 10/02/16 10/02/16 10/03/16 15:00 23:00 07:00 Intake Total 320 ml Output Total 380 ml Balance -60 ml Exam Constitutional: Profoundly confused Psych: nl mood/affect Head: normocephalic Eyes: EOMI, nl conjunctiva, nl lids ENMT: nl external ears & nose, nl lips & teeth, nl nasal mucosa & septum Respiratory: clear to auscultation, normal air movement Cardiovascular: regular rate and rhythm Gastrointestinal: soft, non-tender Musculoskeletal: nl extremities to inspection Results Result Diagram: 10/03/16 0655 10/03/16 0655 Results 24 hrs Laboratory Tests Test 10/02/16 17:28 10/02/16 20:02 10/03/16 06:55 10/03/16 07:57 Bedside Glucose 139 144 119 White Blood Count 6.1 Red Blood Count 2.54 L Hemoglobin 8.1 L Hematocrit 24.7 L Mean Corpuscular Volume 97.2 Mean Corpuscular Hemoglobin 31.9 Mean Corpuscular Hemoglobin Concent 32.8 Red Cell Distribution Width 17.6 H Platelet Count 166 Mean Platelet Volume 9.7 Neutrophils % 71.6 Lymphocytes % 15.2 Monocytes % 11.1 H Eosinophils % 1.5 Basophils % 0.3 Nucleated Red Blood Cells % 0.0 Neutrophils # 4.4 Lymphocytes # 0.9 Monocytes # 0.7 Eosinophils # 0.1 Basophils # 0.0 Nucleated Red Blood Cells # 0.0 Sodium Level 139 Potassium Level 4.0 Chloride Level 111 H Carbon Dioxide Level 22 Anion Gap 10 Blood Urea Nitrogen 19 Creatinine 1.04 H Glucose Level 111 Calcium Level 8.3 L Magnesium Level 1.9 Test 10/03/16 13:02 Bedside Glucose 190 Medications Medications Current Medications Ondansetron HCl (Zofran Inj) 4 mg Q6H PRN IV NAUSEA AND/OR VOMITING; Start at 14:30 Pantoprazole (Protonix Iv) 40 mg BID@06,18 IV Last administered on 10/02/16 06 :30; Admin Dose 40 MG; Start 09/26/16 at 18:00 Hydralazine HCl (Apresoline) 10 mg Q4H PRN IV SBP>170 Last administered on 09/28 02:42; Admin Dose 10 MG; Start 09/26/16 at 14:30 Insulin Aspart (Novolog Insulin Pen) NOVOLOG *MILD* ALGORI... Q4 SC Last administered on 10/03/16 13:08; Admin Dose 2 UNIT; Start 09/26/16 at 17:00 Miscellaneous Information 1 ea NOTE XX ; Start 09/26/16 at 15:00 Glucose (Glutose) 15 gm Q15M PRN PO DECREASED GLUCOSE; Start 09/26/16 at 15:00 Glucose (Glutose) 22.5 gm Q15M PRN PO DECREASED GLUCOSE; Start 09/26/16 at 15: 00 Dextrose (D50w Syringe) 25 ml Q15M PRN IV DECREASED GLUCOSE; Start 09/26/16 at 15:00 Dextrose (D50w Syringe) 50 ml Q15M PRN IV DECREASED GLUCOSE; Start 09/26/16 at 15:00 Glucagon (Glucagen) 1 mg Q15M PRN IM DECREASED GLUCOSE; Start 09/26/16 at 15:00 Glucose (Glutose) 15 gm Q15M PRN BUCCAL DECREASED GLUCOSE; Start 09/26/16 at 15 :00 Metoclopramide HCl (Reglan) 5 mg Q6H PRN IV NAUSEA; Start 09/27/16 at 18:00 Acetaminophen (Tylenol Tab) 650 mg Q4H PRN PO NON-CARDIAC PAIN LEVEL (1-3); Start 09/28/16 at 18:00 IV Flush (NS 10 ml) 10 ml PRN PRN IV IV PROTOCOL; Start 09/29/16 at 13:00 Sucralfate 1 gm 1 gm QID PO Last administered on 10/03/16t 13:08; Admin Dose 1 GM; Start 09/29/16 at 21:00 Levofloxacin/ Dextrose (Levaquin 500mg/ D5W 100 ml (Pmx)) 100 ml @ 100 mls/hr Q24H IVPB ; Start 10/02/16 at 16:30 Olanzapine (Zyprexa Zydis) 5 mg QHS ODT ; Start 10/03/16 at 21:00 VINAYAK ELLER Oct 03, 2016 13:56
[2016-10-03] MEDS: LEVOFLOXACIN 500MG/D5W (PMX) 100 ML IVPB SCH (15:44)
[2016-10-03] MEDS: QUETIAPINE 25 MG TAB PO SCH (20:22)
[2016-10-03] MEDS: FUROSEMIDE 20 MG INJ IV SCH (20:22)
[2016-10-03] MEDS ORDERED: OLANZAPINE (ODT) 5 MG TAB ODT SCH (21:00)
[2016-10-04] VITALS (16 sets, daily range): BP systolic 118–160; BP diastolic 52–79; PULSE 49–72; RESP 16–20
[2016-10-04] MEDS: INSULIN ASPART [NOVOLOG] 3 ML PEN SC SCH ×6 (01:00→20:10)
[2016-10-04] MEDS: PANTOPRAZOLE 40 MG INJ IV SCH ×2 (05:02→17:28)
[2016-10-04] MEDS: FUROSEMIDE 20 MG INJ IV SCH (06:00)
[2016-10-04 07:06] LABS: ADD SCAN DIFF NO
[2016-10-04 07:11] LABS: BASOPHILS % 0.5 % (0.0-2.0); EOSINOPHILS # 0.2 10^3/ul (0.0-0.5); EOSINOPHILS % 2.5 % (0.0-7.0); HEMATOCRIT 27.2 % (37.0-47.0); HEMOGLOBIN 8.8 g/dl (12.0-16.0); LYMPHOCYTES % 30.5 % (15.0-51.0); MEAN CORPUSCULAR HEMOGLOBIN 31.5 pg (29.0-33.0); MEAN CORPUSCULAR HGB CONC 32.4 g/dl (32.0-37.0); MEAN CORPUSCULAR VOLUME 97.5 fl (82.0-101.0); MEAN PLATELET VOLUME 9.1 fl (7.4-10.4); MONOCYTE # 0.8 10^3/ul (0.3-0.9); MONOCYTES % 12.1 % (0.0-11.0); NEUTROPHIL # 3.5 10^3/ul (1.6-7.5); NEUTROPHILS % 53.9 % (39.0-77.0); PLATELET COUNT 189 10^3/UL (140-415); RED BLOOD COUNT 2.79 10^6/ul (4.20-5.40); RED CELL DISTRIBUTION WIDTH 17.5 % (11.5-14.5); WHITE BLOOD COUNT 6.5 10^3/ul (4.8-10.8)
[2016-10-04 07:26] LABS: POTASSIUM 3.9 mmol/L (3.5-5.1)
[2016-10-04 07:28] LABS: CREATININE 1.1 mg/dl (0.44-1.00)
[2016-10-04 07:29] LABS: PHOSPHORUS 3.1 mg/dl (2.5-4.9)
[2016-10-04 07:30] LABS: CALCIUM 8.3 mg/dl (8.4-10.2); MAGNESIUM 1.8 mg/dl (1.7-2.5)
--- NOTE | 2016-10-04 08:11 | PN ---
DATE: 10/01/2016 CARDIOLOGY FOLLOWUP SUBJECTIVE: No new cardiac events. The patient is still confused. Remains in mostly ventricular d emand pacemaker. Blood pressure has remained stable. MEDICATIONS: Reviewed. PHYSICAL EXAMINATION: VITAL SIGNS: Temperature 98, heart rate of 50, blood pressure ____ , respiration rate 11, saturatin g 100%. HEENT: Normocephalic, atraumatic. Pupils are equal. CARDIOVASCULAR: Bradycardic. Systolic murmur. PULMONARY: With no wheezes. Chest has a permanent pacemaker. EXTREMITIES: With no bleeding, no hematoma. NEUROLOGIC: Awake but confused. PSYCHIATRIC: Appears agitated. LABORATORY: WBC of 5.4, hemoglobin 8.9, platelets of 128. Sodium 137, potassium 3.7, BUN 24, creat inine 1.28, glucose of 135. ASSESSMENT AND PLAN: 1. Sick sinus syndrome with atrial fibrillation with slow ventricular response. 2. Permanent pacemaker. 3. Gastrointestinal bleed. 4. Severe anemia. 5 Hypertension, renal failure, currently back to her baseline. 6. Dementia. RECOMMENDATIONS: We will continue with the current cardiac care. Follow with GI recommendations. H and H monitoring as per GI recommendations. Dictated By: MJ TATE MD AV/NTS Conf#: [id number] DID#: [id number] CC: YAIR MURILLO MD;*EndCC*
--- NOTE | 2016-10-04 08:38 | RADRPT ---
PROCEDURE: XR Chest 1 View. CLINICAL INDICATION: Shortness of breath, congestive heart failure TECHNIQUE: AP view of the chest was obtained. COMPARISON: September 29, 2016 FINDINGS: The heart size is within normal limits. Calcified atherosclerosis is noted in the aorta. Left-sided pacemaker has its lead over the heart and is stable. Right-sided PICC line has been removed. Infi ltrates throughout the right lung have developed and/or combined with moderate to large right pleura l effusion. Retrocardiac opacity is seen. Central pulmonary vascular congestion and interstitial p rominence in both lungs is noted. Osseous structures are intact. IMPRESSION: Calcified atherosclerosis in the aorta. Central pulmonary vascular congestion and interstitial prominence in both lungs. Patchy infiltrates throughout the right lung combined with moderate to large pleural effusion. Retrocardiac opacity that may reflect left lower lobe atelectasis or infiltrate combined with small pleural effusion. RPTAT: AA .Eddie Max MD, Date Time Electronically viewed and signed by .Eddie Max MD, on 10/04/2016 08:38 .P/
[2016-10-04] MEDS: QUETIAPINE 25 MG TAB PO SCH ×2 (09:41→20:01)
[2016-10-04] MEDS: SUCRALFATE (100 MG/ML) 10ML CUP PO SCH ×4 (09:41→20:01)
--- NOTE | 2016-10-04 11:03 | PN ---
DATE: 10/04/2016 SUBJECTIVE: The patient is stable, no acute events overnight. No fevers, chills, nausea, vomiting. OBJECTIVE: VITAL SIGNS: Blood pressure 160/67, respiration 18, pulse 57, temperature 98.0. HEENT: Head is normocephalic. NECK: Supple. HEART: Regular rate. LUNGS: Show diminished breath sounds at base. ABDOMEN: Soft, nontender to palpation. No rebound or guarding. EXTREMITIES: Negative for clubbing, cyanosis, no edema. DERMATOLOGIC: No rashes. MUSCULOSKELETAL: No joint effusions. NEUROLOGIC: No change in exam. LABORATORY DATA: Shows white count 6.5, hemoglobin 8.8, platelet count 189. Sodium 138, potassium 3.9, BUN 18, creatinine 1.10. IMAGING: Chest x-ray shows pulmonary vascular congestion and patchy infiltrates, moderate to large pleural effusion. ASSESSMENT AND PLAN: 1. Nonoliguric acute kidney injury on top of chronic kidney disease with previous baseline creatini ne between 1 to 1.2 mg/dL. Etiology of acute kidney injury is secondary to hemodynamics. Renal fun ction has improved. At this point, continue current treatment plan, supportive care, renally dose a ll meds, monitor renal function on diuretic therapy. 2. Severe anemia secondary to GI bleed, patient status post blood transfusion. Hemoglobin level st able. Continue to monitor. 3. Mineral bone disorder. Continue to monitor calcium and phosphorus levels. 4. Right pleural effusion. Continue to monitor. Continue medical management. 5. Mitral regurgitation. Continue to monitor. 6. Hypertension. Continue current blood pressure regimen. Adjust medications as needed. 7. Dysphagia. Continue dysphagia diet. 8. Dementia. Continue current treatment plan. 9. Coronary artery disease. Continue medical management. 10. Dyslipidemia. Continue statin therapy. 11. History of pulmonary hypertension. Dictated By: CLYDE TRAVIS/GRIS Conf#: [id number] DID#: [id number]
[2016-10-04 14:02] LABS: MICROALBUMIN 4.1 mg/dL
--- NOTE | 2016-10-04 15:42 | CONS ---
Date/Time of Note Date/Time of Note DATE: 10/04/16 TIME: 15:39 Consult Date/Type/Reason Admit Date/Time Sep 26, 2016 at 10:58 Initial Consult Date 09/29/16 Type of Consultation: pulmonary Subjective Patient is comfortable this afternoon she is still confused with intermittent agitation While in bed no distress Objective Vital Signs Date Time Temp Pulse Resp B/P Pulse Ox O2 Delivery O2 Flow Rate FiO2 10/04/16 14:29 98.0 79 18 122/79 98 10/02/16 16:25 Room Air 10/01/16 05:00 21 09/30/16 19:00 3.0 Intake and Output 10/03/16 10/03/16 10/04/16 15:00 23:00 07:00 Intake Total 340 ml Output Total 500 ml Balance -160 ml Exam GENERAL: Elderly Welsh lady appears comfortable at rest mildly confused VITAL SIGNS: per chart NECK: Supple. No JVD or lymphadenopathy. CARDIAC EXAM: S1, S2. No added sounds or murmurs. CHEST: Diminished air entry bilaterally poor inspiratory effort ABDOMEN: Soft, nontender. No guarding or rebound. EXTREMITIES: No cyanosis, clubbing edema +2 NEUROLOGIC: Generalized weakness. Results/Medications Result Diagram: 10/04/16 0557 10/04/16 0557 Results 24 hrs Laboratory Tests Test 10/03/16 17:17 10/03/16 20:03 10/04/16 05:02 10/04/16 05:57 Bedside Glucose 192 192 101 White Blood Count 6.5 Red Blood Count 2.79 L Hemoglobin 8.8 L Hematocrit 27.2 L Mean Corpuscular Volume 97.5 Mean Corpuscular Hemoglobin 31.5 Mean Corpuscular Hemoglobin Concent 32.4 Red Cell Distribution Width 17.5 H Platelet Count 189 Mean Platelet Volume 9.1 Neutrophils % 53.9 Lymphocytes % 30.5 Monocytes % 12.1 H Eosinophils % 2.5 Basophils % 0.5 Nucleated Red Blood Cells % 0.0 Neutrophils # 3.5 Lymphocytes # 2.0 Monocytes # 0.8 Eosinophils # 0.2 Basophils # 0.0 Nucleated Red Blood Cells # 0.0 Sodium Level 138 Potassium Level 3.9 Chloride Level 108 Carbon Dioxide Level 23 Anion Gap 11 Blood Urea Nitrogen 18 Creatinine 1.10 H Glucose Level 103 Calcium Level 8.3 L Phosphorus Level 3.1 Magnesium Level 1.8 Test 10/04/16 09:27 10/04/16 12:36 Bedside Glucose 99 189 Medications Current Medications Ondansetron HCl (Zofran Inj) 4 mg Q6H PRN IV NAUSEA AND/OR VOMITING; Start at 14:30 Pantoprazole (Protonix Iv) 40 mg BID@06,18 IV Last administered on 10/04/16 05 :02; Admin Dose 40 MG; Start 09/26/16 at 18:00 Hydralazine HCl (Apresoline) 10 mg Q4H PRN IV SBP>170 Last administered on 09/28 02:42; Admin Dose 10 MG; Start 09/26/16 at 14:30 Insulin Aspart (Novolog Insulin Pen) NOVOLOG *MILD* ALGORI... Q4 SC Last administered on 10/04/16 13:12; Admin Dose 2 UNIT; Start 09/26/16 at 17:00 Miscellaneous Information 1 ea NOTE XX ; Start 09/26/16 at 15:00 Glucose (Glutose) 15 gm Q15M PRN PO DECREASED GLUCOSE; Start 09/26/16 at 15:00 Glucose (Glutose) 22.5 gm Q15M PRN PO DECREASED GLUCOSE; Start 09/26/16 at 15: 00 Dextrose (D50w Syringe) 25 ml Q15M PRN IV DECREASED GLUCOSE; Start 09/26/16 at 15:00 Dextrose (D50w Syringe) 50 ml Q15M PRN IV DECREASED GLUCOSE; Start 09/26/16 at 15:00 Glucagon (Glucagen) 1 mg Q15M PRN IM DECREASED GLUCOSE; Start 09/26/16 at 15:00 Glucose (Glutose) 15 gm Q15M PRN BUCCAL DECREASED GLUCOSE; Start 09/26/16 at 15 :00 Metoclopramide HCl (Reglan) 5 mg Q6H PRN IV NAUSEA; Start 09/27/16 at 18:00 Acetaminophen (Tylenol Tab) 650 mg Q4H PRN PO NON-CARDIAC PAIN LEVEL (1-3); Start 09/28/16 at 18:00 IV Flush (NS 10 ml) 10 ml PRN PRN IV IV PROTOCOL; Start 09/29/16 at 13:00 Sucralfate 1 gm 1 gm QID PO Last administered on 10/04/16 13:07; Admin Dose 1 GM; Start 09/29/16 at 21:00 Levofloxacin/ Dextrose (Levaquin 500mg/ D5W 100 ml (Pmx)) 100 ml @ 100 mls/hr Q24H IVPB Last administered on 10/03/16 15:44; Admin Dose 100 MLS/HR; Start at 16:30 Quetiapine Fumarate (Seroquel) 25 mg BID PO Last administered on 10/04/16 09: 41; Admin Dose 25 MG; Start 10/03/16 at 21:00 Furosemide (Lasix) 20 mg DAILY@06 IV Last administered on 10/04/16 06:00; Admin Dose 20 MG; Start 10/03/16 at 19:30 Assessment/Plan Chief Complaint/Hosp Course Assessment 1. Status post Acute hypoxemic respiratory failure 2. Large left pleural effusion status post thoracentesis, still has persistent pleural effusion on chest x-ray 3. History of congestive cardiac failure with decreased ejection fraction 4. Anemia status post transfusion of packed red blood cells 5. Sick sinus syndrome with pacemaker in place Plan 1. Continue aspiration precautions 2. Diuresis if tolerated 3. GI recommendations 4. DVT and GI prophylaxis 5. Hold off on further thoracentesis until family's goals of care have been established Disposition Consider transfer to longterm facility with palliative care evaluation Problems: CLAUDETTE LAL MD, [facility] Oct 04, 2016 15:42
--- NOTE | 2016-10-04 15:53 | PN ---
Date/Time of Note Date/Time of Note DATE: 10/04/16 TIME: 15:48 Assessment/Plan VTE Prophylaxis VTE Prophylaxis Intervention: SCD's Lines/Catheters IV Catheter Type (from [facility]): Peripheral IV Urinary Cath still in place: No Assessment/Plan Chief Complaint/Hosp Course 1. 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 Severe anemia secondary to a chronic gastrointestinal bleed from large gastric ulcer on EGD Stable 3. Chronic Atrial fibrillation with slow ventricular response S/p pacemaker placement 09/28/16: improved and stable rate 4. Diastolic CHF with with preserved EF S/p thoracentesis 09/29/16 for Moderate to large R sided pleural effusion 2/2 CHF 2 Liters of serous fluid was aspirated /Fluid analysis and culture negative, continue Lasix 5. Severe Mitral valve regurgitation 6. ARF 2/2 ATN r/o CKD: improving 7. Hypertension-stable 8. Chronic peripheral vascular disease. Prophylaxis: SCDs / PPI Problems: Subjective 24 Hr Interval Summary Constitutional: disoriented Exam/Review of Systems Vital Signs Vitals Vital Signs Date Time Temp Pulse Resp B/P Pulse Ox O2 Delivery O2 Flow Rate FiO2 10/04/16 14:29 98.0 79 18 122/79 98 10/02/16 16:25 Room Air 10/01/16 05:00 21 09/30/16 19:00 3.0 Intake and Output 10/03/16 10/03/16 10/04/16 15:00 23:00 07:00 Intake Total 340 ml Output Total 500 ml Balance -160 ml Exam Constitutional: non-verbal Psych: confusion Respiratory: clear to auscultation Cardiovascular: regular rate and rhythm Gastrointestinal: soft, No distended Musculoskeletal: nl extremities to inspection Results Result Diagram: 10/04/16 0557 10/04/16 0557 Results 24 hrs Laboratory Tests Test 10/03/16 17:17 10/03/16 20:03 10/04/16 05:02 10/04/16 05:57 Bedside Glucose 192 192 101 White Blood Count 6.5 Red Blood Count 2.79 L Hemoglobin 8.8 L Hematocrit 27.2 L Mean Corpuscular Volume 97.5 Mean Corpuscular Hemoglobin 31.5 Mean Corpuscular Hemoglobin Concent 32.4 Red Cell Distribution Width 17.5 H Platelet Count 189 Mean Platelet Volume 9.1 Neutrophils % 53.9 Lymphocytes % 30.5 Monocytes % 12.1 H Eosinophils % 2.5 Basophils % 0.5 Nucleated Red Blood Cells % 0.0 Neutrophils # 3.5 Lymphocytes # 2.0 Monocytes # 0.8 Eosinophils # 0.2 Basophils # 0.0 Nucleated Red Blood Cells # 0.0 Sodium Level 138 Potassium Level 3.9 Chloride Level 108 Carbon Dioxide Level 23 Anion Gap 11 Blood Urea Nitrogen 18 Creatinine 1.10 H Glucose Level 103 Calcium Level 8.3 L Phosphorus Level 3.1 Magnesium Level 1.8 Test 10/04/16 09:27 10/04/16 12:36 Bedside Glucose 99 189 Medications Medications Current Medications Ondansetron HCl (Zofran Inj) 4 mg Q6H PRN IV NAUSEA AND/OR VOMITING; Start at 14:30 Pantoprazole (Protonix Iv) 40 mg BID@06,18 IV Last administered on 10/04/16 05 :02; Admin Dose 40 MG; Start 09/26/16 at 18:00 Hydralazine HCl (Apresoline) 10 mg Q4H PRN IV SBP>170 Last administered on 09/28 02:42; Admin Dose 10 MG; Start 09/26/16 at 14:30 Insulin Aspart (Novolog Insulin Pen) NOVOLOG *MILD* ALGORI... Q4 SC Last administered on 10/04/16 13:12; Admin Dose 2 UNIT; Start 09/26/16 at 17:00 Miscellaneous Information 1 ea NOTE XX ; Start 09/26/16 at 15:00 Glucose (Glutose) 15 gm Q15M PRN PO DECREASED GLUCOSE; Start 09/26/16 at 15:00 Glucose (Glutose) 22.5 gm Q15M PRN PO DECREASED GLUCOSE; Start 09/26/16 at 15: 00 Dextrose (D50w Syringe) 25 ml Q15M PRN IV DECREASED GLUCOSE; Start 09/26/16 at 15:00 Dextrose (D50w Syringe) 50 ml Q15M PRN IV DECREASED GLUCOSE; Start 09/26/16 at 15:00 Glucagon (Glucagen) 1 mg Q15M PRN IM DECREASED GLUCOSE; Start 09/26/16 at 15:00 Glucose (Glutose) 15 gm Q15M PRN BUCCAL DECREASED GLUCOSE; Start 09/26/16 at 15 :00 Metoclopramide HCl (Reglan) 5 mg Q6H PRN IV NAUSEA; Start 09/27/16 at 18:00 Acetaminophen (Tylenol Tab) 650 mg Q4H PRN PO NON-CARDIAC PAIN LEVEL (1-3); Start 09/28/16 at 18:00 IV Flush (NS 10 ml) 10 ml PRN PRN IV IV PROTOCOL; Start 09/29/16 at 13:00 Sucralfate 1 gm 1 gm QID PO Last administered on 10/04/16 13:07; Admin Dose 1 GM; Start 09/29/16 at 21:00 Levofloxacin/ Dextrose (Levaquin 500mg/ D5W 100 ml (Pmx)) 100 ml @ 100 mls/hr Q24H IVPB Last administered on 10/03/16 15:44; Admin Dose 100 MLS/HR; Start at 16:30 Quetiapine Fumarate (Seroquel) 25 mg BID PO Last administered on 10/04/16 09: 41; Admin Dose 25 MG; Start 10/03/16 at 21:00 Furosemide (Lasix) 20 mg DAILY@06 IV Last administered on 10/04/16 06:00; Admin Dose 20 MG; Start 10/03/16 at 19:30 BALA ARGUELLES Oct 04, 2016 15:53
[2016-10-04] MEDS: LEVOFLOXACIN 500MG/D5W (PMX) 100 ML IVPB SCH (17:28)
[2016-10-05] VITALS (10 sets, daily range): BP systolic 89–172; BP diastolic 63–80; PULSE 50–79; RESP 18–20
[2016-10-05] MEDS: INSULIN ASPART [NOVOLOG] 3 ML PEN SC SCH ×5 (00:33→17:00)
[2016-10-05] MEDS: PANTOPRAZOLE 40 MG INJ IV SCH ×2 (05:25→18:00)
[2016-10-05] MEDS: FUROSEMIDE 20 MG INJ IV SCH (05:25)
--- NOTE | 2016-10-05 07:23 | PN ---
DATE: 10/04/2016 CARDIOLOGY FOLLOWUP SUBJECTIVE: Discussed with the staff. Rhythm strip was reviewed. The patient remains in atrial fi brillation with demand ventricular pacemaker. No new cardiac events. MEDICATIONS: Reviewed. PHYSICAL EXAMINATION: VITAL SIGNS: Temperature 98, heart rate of 72, blood pressure 144/66, respiration rate of 18, satur ating 98%. HEENT: Normocephalic, atraumatic. Pupils are equal. CHEST: Status post pacemaker with no bleeding, no hematoma. CARDIOVASCULAR: Irregularly irregular with systolic murmur. PULMONARY: With no wheezes. GASTROINTESTINAL: Soft. EXTREMITIES: With lower extremity edema. NEUROLOGIC: Awake and alert. PSYCHIATRIC: Anxious and agitated. LABORATORY: WBC of 6.5, hemoglobin 8.8, platelets of 189. Sodium 138, potassium 3.9, BUN of 18, cr eatinine of 1.1, glucose of 103. ASSESSMENT AND PLAN: 1. Sick sinus syndrome with marked bradycardia. 2. Atrial fibrillation ____ 3. Status post permanent pacemaker. 4. Gastrointestinal bleed. 5. Gastric ulcers. 6. Hypertension. 7. Cerebrovascular accident. 8. Encephalopathy. 9. Fluid overload/pleural effusion, status post thoracentesis. RECOMMENDATIONS: We will continue with the current cardiac care. Transfusion p.r.n. Follow up wit h GI recommendations. Dictated By: MJ TATE MD AV/GRIS Conf#: [id number] DID#: [id number] CC: BALA ARGUELLES MD;*EndCC*
[2016-10-05 08:22] LABS: ADD SCAN DIFF NO
[2016-10-05 08:27] LABS: BASOPHILS % 0.5 % (0.0-2.0); EOSINOPHILS # 0.2 10^3/ul (0.0-0.5); EOSINOPHILS % 2.7 % (0.0-7.0); HEMATOCRIT 27.9 % (37.0-47.0); HEMOGLOBIN 9.1 g/dl (12.0-16.0); LYMPHOCYTES # 1.4 10^3/ul (0.8-2.9); LYMPHOCYTES % 21.3 % (15.0-51.0); MEAN CORPUSCULAR HEMOGLOBIN 31.8 pg (29.0-33.0); MEAN CORPUSCULAR HGB CONC 32.6 g/dl (32.0-37.0); MEAN CORPUSCULAR VOLUME 97.6 fl (82.0-101.0); MEAN PLATELET VOLUME 9.4 fl (7.4-10.4); MONOCYTE # 0.7 10^3/ul (0.3-0.9); MONOCYTES % 10.5 % (0.0-11.0); NEUTROPHIL # 4.1 10^3/ul (1.6-7.5); NEUTROPHILS % 64.5 % (39.0-77.0); PLATELET COUNT 163 10^3/UL (140-415); RED BLOOD COUNT 2.86 10^6/ul (4.20-5.40); RED CELL DISTRIBUTION WIDTH 17.3 % (11.5-14.5); WHITE BLOOD COUNT 6.4 10^3/ul (4.8-10.8)
[2016-10-05 08:57] LABS: POTASSIUM 4.3 mmol/L (3.5-5.1)
[2016-10-05 08:59] LABS: CREATININE 1.02 mg/dl (0.44-1.00)
[2016-10-05 09:00] LABS: CALCIUM 8.4 mg/dl (8.4-10.2); MAGNESIUM 1.8 mg/dl (1.7-2.5)
[2016-10-05] MEDS: QUETIAPINE 25 MG TAB PO SCH ×2 (09:00→20:10)
[2016-10-05] MEDS: SUCRALFATE (100 MG/ML) 10ML CUP PO SCH ×3 (10:11→16:25)
--- NOTE | 2016-10-05 12:37 | PN ---
DATE: 10/05/2016 SUBJECTIVE: Patient stable. No acute events overnight. No fevers, chills, nausea, vomiting. OBJECTIVE: VITAL SIGNS: Blood pressure 142/65, respiration 19, pulse 83, temperature 98.2. HEENT: Head is normocephalic. NECK: Supple. HEART: Regular rate. LUNGS: Show diminished breath sounds at the bases. ABDOMEN: Soft, nontender to palpation. No rebound or guarding. EXTREMITIES: Negative for clubbing, cyanosis. No edema. DERMATOLOGIC: No rashes. MUSCULOSKELETAL: No joint effusions. NEUROLOGIC: No change in exam. MEDICATIONS: Reviewed. LABORATORY DATA: Shows a white count 6.4, hemoglobin 9.1, hematocrit 27.9, platelet count is 163. Sodium 139, potassium 4.3, BUN is 17, creatinine 1.02. ASSESSMENT AND PLAN: 1. Nonoliguric acute kidney injury on top of chronic kidney disease, previous baseline creatinine b etween 1 and 1.2 mg/dL. Etiology of acute kidney injury secondary to hemodynamics. Renal function has improved; currently at baseline. Continue current treatment plan, supportive care, renally dose medications. 2. Severe anemia secondary to gastrointestinal bleed. Will monitor hemoglobin and hematocrit level s. Will transfuse as needed. 3. Mineral and bone disorder. Continue to monitor calcium and phosphorus levels. 4. Right pleural effusion. Continue to monitor. 5. Mitral regurgitation. 6. Hypertension. Continue current blood pressure regimen. 7. Dysphagia. Continue current diet. 8. Dementia. Continue to monitor. 9. Coronary artery disease. Continue medical management. 10. Dyslipidemia. Continue statin therapy. 11. History of pulmonary hypertension. Dictated By: CLYDE TRAVIS/GRIS Conf#: [id number] DID#: [id number]
--- NOTE | 2016-10-05 12:44 | CONS ---
Date/Time of Note Date/Time of Note DATE: 10/05/16 TIME: 12:42 Assessment/Plan Assessment/Plan Additional Assessment/Plan Assessment recommendations; 1. Patient admitted for anemia status post per confusion. 2. CHF. 3. Recurrent right pleural effusion. 4. Advanced dementia. Continue current treatment. Patient should be evaluated for comfort care measures. Consultation Date/Type/Reason Admit Date/Time Sep 26, 2016 at 10:58 Initial Consult Date 09/29/16 Type of Consultation: pulmonary 24 HR Interval Summary Free Text/Dictation Patient condition remains stable. Is awake but does not respond to any commands. Has remained hemodynamically stable. General exam; elderly lady, currently in no distress. Exam/Review of Systems Vital Signs Vitals Vital Signs Date Time Temp Pulse Resp B/P Pulse Ox O2 Delivery O2 Flow Rate FiO2 10/05/16 12:35 58 10/05/16 11:47 98.2 18 146/78 94 10/05/16 04:55 Room Air Intake and Output 10/04/16 10/04/16 10/05/16 15:00 23:00 07:00 Intake Total 500 ml 280 ml Output Total 550 ml 400 ml Balance -50 ml -120 ml Exam H EENT examination; supple neck, positive JVD. No lymphadenopathy. Midline trachea. No thyromegaly. No neck masses. Chest examination; diminished breath sounds right lung. Left lung is clear. S1 -S2 audible, no murmurs. Regular rhythm. Abdomen examination; soft, no organomegaly. Bowel sounds audible. Extremity exam; no peripheral edema. [employer] examination; patient is awake but does not respond to any commands. Results Result Diagram: 10/05/16 0631 10/05/16 0631 Results 24 hrs Laboratory Tests Test 10/04/16 17:06 10/04/16 20:00 10/05/16 06:31 10/05/16 09:08 Bedside Glucose 92 181 135 White Blood Count 6.4 Red Blood Count 2.86 L Hemoglobin 9.1 L Hematocrit 27.9 L Mean Corpuscular Volume 97.6 Mean Corpuscular Hemoglobin 31.8 Mean Corpuscular Hemoglobin Concent 32.6 Red Cell Distribution Width 17.3 H Platelet Count 163 Mean Platelet Volume 9.4 Neutrophils % 64.5 Lymphocytes % 21.3 Monocytes % 10.5 Eosinophils % 2.7 Basophils % 0.5 Nucleated Red Blood Cells % 0.0 Neutrophils # 4.1 Lymphocytes # 1.4 Monocytes # 0.7 Eosinophils # 0.2 Basophils # 0.0 Nucleated Red Blood Cells # 0.0 Sodium Level 139 Potassium Level 4.3 Chloride Level 109 Carbon Dioxide Level 25 Anion Gap 9 Blood Urea Nitrogen 17 Creatinine 1.02 H Glucose Level 105 Calcium Level 8.4 Magnesium Level 1.8 Medications Medications Current Medications Ondansetron HCl (Zofran Inj) 4 mg Q6H PRN IV NAUSEA AND/OR VOMITING; Start at 14:30 Pantoprazole (Protonix Iv) 40 mg BID@06,18 IV Last administered on 10/05/16 05 :25; Admin Dose 40 MG; Start 09/26/16 at 18:00 Hydralazine HCl (Apresoline) 10 mg Q4H PRN IV SBP>170 Last administered on 09/28 02:42; Admin Dose 10 MG; Start 09/26/16 at 14:30 Insulin Aspart (Novolog Insulin Pen) NOVOLOG *MILD* ALGORI... Q4 SC Last administered on 10/04/16 20:10; Admin Dose 2 UNIT; Start 09/26/16 at 17:00 Miscellaneous Information 1 ea NOTE XX ; Start 09/26/16 at 15:00 Glucose (Glutose) 15 gm Q15M PRN PO DECREASED GLUCOSE; Start 09/26/16 at 15:00 Glucose (Glutose) 22.5 gm Q15M PRN PO DECREASED GLUCOSE; Start 09/26/16 at 15: 00 Dextrose (D50w Syringe) 25 ml Q15M PRN IV DECREASED GLUCOSE; Start 09/26/16 at 15:00 Dextrose (D50w Syringe) 50 ml Q15M PRN IV DECREASED GLUCOSE; Start 09/26/16 at 15:00 Glucagon (Glucagen) 1 mg Q15M PRN IM DECREASED GLUCOSE; Start 09/26/16 at 15:00 Glucose (Glutose) 15 gm Q15M PRN BUCCAL DECREASED GLUCOSE; Start 09/26/16 at 15 :00 Metoclopramide HCl (Reglan) 5 mg Q6H PRN IV NAUSEA; Start 09/27/16 at 18:00 Acetaminophen (Tylenol Tab) 650 mg Q4H PRN PO NON-CARDIAC PAIN LEVEL (1-3) Last administered on 10/04/16 23:17; Admin Dose 650 MG; Start 09/28/16 at 18:00 IV Flush (NS 10 ml) 10 ml PRN PRN IV IV PROTOCOL; Start 09/29/16 at 13:00 Sucralfate 1 gm 1 gm QID PO Last administered on 10/05/16 10:11; Admin Dose 1 GM; Start 09/29/16 at 21:00 Levofloxacin/ Dextrose (Levaquin 500mg/ D5W 100 ml (Pmx)) 100 ml @ 100 mls/hr Q24H IVPB Last administered on 10/04/16 17:28; Admin Dose 100 MLS/HR; Start at 16:30 Quetiapine Fumarate (Seroquel) 25 mg BID PO Last administered on 10/05/16 09: 00; Admin Dose 25 MG; Start 10/03/16 at 21:00 Furosemide (Lasix) 20 mg DAILY@06 IV Last administered on 10/05/16 05:25; Admin Dose 20 MG; Start 10/03/16 at 19:30 JOCELYN ZAMORA 28, 2017 12:44
[2016-10-05] MEDS ORDERED: FURO-110 PO (13:55)
[2016-10-05] MEDS ORDERED: QUET25TA33 PO (13:58)
[2016-10-05] MEDS ORDERED: CARAS PO ×2 (14:00→14:02)
--- NOTE | 2016-10-05 14:56 | PN ---
DATE: 10/05/2016 PALLIATIVE CARE I have reviewed my notes from 10/01/2016. The patient still remains in the hospital. She is still receiving aggressive intervention, but she remains delirious and demented. She has a history of bas paige dementia per my prior conversations with her daughter. At that last conversation with her, I asked if she would be interested in speaking to hospice services, not that patient was actively dyin g, but I think she would benefit from a higher level of care from hospice services. She was in agre ement with that. I will speak to Dr. Pappas and consider request for hospice services. Dictated By: JOSE ANGEL GARRETT MD LP/NTS Conf#: [id number] DID#: [id number]
[2016-10-05] MEDS: LEVOFLOXACIN 500MG/D5W (PMX) 100 ML IVPB SCH (16:25)
--- NOTE | 2016-10-05 18:28 | DS ---
DATE OF ADMISSION: 09/26/2016 DATE OF DISCHARGE: 10/05/2016 DISCHARGE DIAGNOSES: 1. [id number] encephalopathy secondary to progressive dementia. No infectious etiology noted . 2. Anemia secondary to gastrointestinal bleed from a large gastric ulcer diagnosed on EGD, now stab le. 3. Chronic atrial fibrillation with slow ventricular response, status post pacemaker placement on 0 09/28/2016. 4. Diastolic congestive heart failure with preserved ejection fraction, status post thoracentesis, 09/29/2016 for right-sided effusion. Continue Lasix, which was started during this hospitalization. 5. Severe mitral valve regurgitation. 6. Acute kidney injury, now stable. 7. Hypertension, stable. 8. Peripheral vascular disease. Continue aspirin and Plavix. HOSPITAL COURSE: The patient is an 85-year-old female with a history of dementia. The patient pres ents with a GI bleed. Of note, she also has a history of peripheral vascular disease, hypertension, and diabetes. She was brought in by her daughter for dark stools. The patient was seen by GI and an EGD was done. The patient was found to have a large gastric ulcer that was causing the chronic g astrointestinal bleed. The patient was transfused 2 units of packed red blood cells during hospital ization. Her aspirin and Plavix was held. Of note, she did have a pleural effusion and this did re quire a thoracentesis. The patient was started on Lasix by cardiology. Nephrology also following t he patient for acute versus chronic kidney disease, acute component secondary to hemodynamics. Renal function improved. Patient was doing well on Lasix 20. Patient did have a normal urinalysi s. Urine culture did show yeast and serratia, which was likely secondary to colonization. The jenny ent had no other infectious processes noted during the hospitalization. The patient does have sever e dementia and was started on Seroquel during this hospitalization. The patient's daughter does not feel like she can care for the patient and arranged for placement of the patient to a [facility]. monitoring manager did arrange for placement in [facility]. On the day of discharge, the patient's vitals, labs, physical exam were stable. She had no other acute issues. Questions of th e daughter were answered. CONDITION ON DISCHARGE: Stable. DISPOSITION: SNF at [facility]. MEDICATIONS: The patient is to continue her usual home medications, but was to stop taking Glipizid e as the A1c is 5.7 and the risks of hypoglycemia from her decreased eating secondary to dementia __ ___ any potential benefit. The patient was given a new prescription for Lasix 20 daily, Seroquel 25 b.i.d., and Carafate 1 g p.o. t.i.d. FOLLOWUP: The patient to follow up with physicians at [facility]. Greater than 30 minutes was spent coordinating discharge of patient. Dictated By: BALA ARGUELLES MD BS/NTS Conf#: [id number] DID#: [id number]
[2016-10-05] MEDS ORDERED: hydrALAzine 20 MG INJ IV ONE (19:30)
--- NOTE | 2016-10-06 07:45 | PN ---
DATE: 10/05/2016 CARDIOLOGY FOLLOWUP SUBJECTIVE: Discussed with the staff. This patient ____ pacemaker. Is still confused and unable t o provide history. Heart rate has remained stable. MEDICATIONS: Reviewed. PHYSICAL EXAMINATION: VITAL SIGNS: Temperature 98.2, heart rate of 58, blood pressure 142/78, respiratory rate of 18. HEENT: Normocephalic, atraumatic. Pupils are equal. CARDIOVASCULAR: Irregularly irregular. Systolic murmur. CHEST: Status post permanent pacemaker. She has taken off apparently her Steri-Strips, but no evid ence of infection, no bleeding, no hematoma. NEUROLOGIC: Awake and alert. PSYCHIATRIC: Appears to be calm now. GASTROINTESTINAL: Soft, nontender. EXTREMITIES: No significant edema. LABORATORY: WBC of 6.4, hemoglobin 9.1, platelets of 163, sodium 139, potassium 4.3, BUN of 17, cre atinine 1.02, glucose of 105. ASSESSMENT: 1. Sick sinus syndrome. 2. Status post permanent pacemaker. 3. Atrial fibrillation with slow ventricular response. 4. Gastrointestinal bleed and severe anemia. 5. Hypertension. 6. Dementia. RECOMMENDATIONS: We will continue with the current cardiac care. Discharge planning is in process. The patient has been scheduled to have an outpatient followup with me for pacemaker check. Dictated By: MJ COX/GRIS Conf#: [id number] DID#: [id number]
== END 2016-10-05 21:18 | DRG 377 ==
LOC: E/R 08:57 → TEL 10:58 → ICU 09-28 11:40 → MS4 10-01 23:41
PROVIDERS: ADMIT Internal Medicine; ATTEND Internal Medicine
PROC: 30233N1 Transfusion of Nonautologous Red Blood Cells into Peripheral Vein, Percutaneous Approach (ICD-10-PCS; 2016-09-26)
PROC: 0JH604Z Insertion of Pacemaker, Single Chamber into Chest Subcutaneous Tissue and Fascia, Open Approach (ICD-10-PCS; principal; 2016-09-28 14:30)
PROC: 02HK3JZ Insertion of Pacemaker Lead into Right Ventricle, Percutaneous Approach (ICD-10-PCS; 2016-09-28 14:30)
PROC: 0W993ZZ Drainage of Right Pleural Cavity, Percutaneous Approach (ICD-10-PCS; 2016-09-29)
PROC: 02HV33Z Insertion of Infusion Device into Superior Vena Cava, Percutaneous Approach (ICD-10-PCS; 2016-09-29)
PROC: 0DJD8ZZ Inspection of Lower Intestinal Tract, Via Natural or Artificial Opening Endoscopic (ICD-10-PCS; 2016-09-29)
PROC: 0DB68ZX Excision of Stomach, Via Natural or Artificial Opening Endoscopic, Diagnostic (ICD-10-PCS; 2016-09-29)
DX: K26.4 Chronic or unspecified duodenal ulcer with hemorrhage (principal); J96.01 Acute respiratory failure with hypoxia; N17.0 Acute kidney failure with tubular necrosis; G93.40 Encephalopathy, unspecified; J90 Pleural effusion, not elsewhere classified; I13.0 Hypertensive heart and chronic kidney disease with heart failure and stage 1 through stage 4 chronic kidney disease, or unspecified chronic kidney disease; I50.30 Unspecified diastolic (congestive) heart failure; N17.9 Acute kidney failure, unspecified; F02.81 Dementia in other diseases classified elsewhere, unspecified severity, with behavioral disturbance; N39.0 Urinary tract infection, site not specified; D50.0 Iron deficiency anemia secondary to blood loss (chronic); I49.5 Sick sinus syndrome; G30.9 Alzheimer's disease, unspecified; E11.9 Type 2 diabetes mellitus without complications; D64.9 Anemia, unspecified; Z79.02 Long term (current) use of antithrombotics/antiplatelets; Z79.82 Long term (current) use of aspirin; I10 Essential (primary) hypertension; I73.9 Peripheral vascular disease, unspecified; I48.91 Unspecified atrial fibrillation; Z86.73 Personal history of transient ischemic attack (TIA), and cerebral infarction without residual deficits; Z66 Do not resuscitate; I34.0 Nonrheumatic mitral (valve) insufficiency; I27.2 Other secondary pulmonary hypertension; K57.30 Diverticulosis of large intestine without perforation or abscess without bleeding; K64.9 Unspecified hemorrhoids; K29.70 Gastritis, unspecified, without bleeding; N18.9 Chronic kidney disease, unspecified; N13.9 Obstructive and reflux uropathy, unspecified; R13.10 Dysphagia, unspecified
CPT/HCPCS: 32555; 36430; 36569; 71010; 74000; 76775; 76937; 80048; 80053; 80061; 80162; 81001; 81003; 82043; 82270; 82962; 83036; 83735; 84100; 84155; 84300; 84439; 84443; 84484; 85014; 85018; 85025; 85610; 85730; 86850; 86900; 86901; 86920; 87070; 87081; 87086; 87102; 87116; 88305; 88312; 89050; 90686; 92610; 93005; 93306; 96374; 96375; 97110; 97162; 97530; J1940; C1769; C1786; C1898; C2629; C9113; J0330; J0360; J0461; J1630; J1815; J1956; J2060; J2250; J2270; J2370; J2405; J3010; J3370; J7040; J7042; P9016; Q9967